=== PATIENT | female | born 1940 | race Caucasian/White ===

== ENCOUNTER 2018-01-25 02:34 | Outpatient (CLI) | payer MEDICARE, SELFPAY ==
[2018-01-25 12:45] LABS: HCT 39.9 % (36.0-46.0); Mean Corp. HGB Concentration 32.6 g/dL (32.0-36.0); Mean Corpuscular Hemoglobin 28.2 pg (27.0-33.0); Mean Corpuscular Volume 86.6 fL (80-95); Mean Platelet Volume 9.1 fL (8.0-11.0); Platelet Count 267 x1000/uL (130-400); RBC 4.61 m/cumm (4.00-5.20); RBC Distribution Width 12.7 % (11.7-14.6); White Blood Cell Count 8.65 k/cumm (4.4-10.8)
[2018-01-25 12:55] LABS: Bilirubin Negative (Negative); Blood Negative (Negative); Clarity Clear; Glucose Negative (Negative); Ketones Negative (Negative); Leukocyte Esterase Small (Negative); Nitrite Negative (Negative); Urobilinogen 0.2 EU/dL (Up TO 0.2)
[2018-01-25 13:10] LABS: Bacteria Few HPF (Negative); C & S Indicated? C&S Done As Ordered; Casts Negative LPF (Negative); Crystals Negative HPF (Negative); Epithelial Cells Few HPF (Negative); Mucus Heavy (Negative); Other Cells Moderate Renal (Negative); RBC Negative (0-2); WBC >50 HPF (0-5)
[2018-01-25 13:26] LABS: Hemoglobin A1C 7.1 % (4.5-6.2)
[2018-01-25 14:20] LABS: COMMENT (LAB VIEW ONLY) 145.85 mg/dL; Microalb ug/mg Crea 8.7 ug/mg Cr
[2018-01-25 14:38] LABS: ALT 14 U/L (12-78); AST 14 U/L (15-37); Albumin 3.4 g/dL (3.4-5.0); Alkaline Phosphatase 96 U/L (46-116); Anion Gap 11.3 mmol/L (3-11); BUN 22 mg/dL (7-18); Bilirubin, Total 1.1 mg/dL (0.2-1.0); CO2 27.7 mmol/L (21.0-32.0); CREATININE 1.01 mg/dL (0.55-1.02); Calcium 9.3 mg/dL (8.5-10.1); Chloride 102 mmol/L (98-107); Estimated GFR 53.43 (mL/min/1.73m2); Glucose 115 mg/dL (70-100); Potassium 4.1 mmol/L (3.5-5.1); Sodium 141 mmol/L (136-145); TSH (W/Ref FT4) 0.66 uIU/mL (0.358-3.74); Total Protein 6.7 g/dL (6.4-8.2)
== END 2018-01-25 02:54 ==
PROVIDERS: PCP Family Medicine; Visit Provider Family Medicine
DX: E11.9 Type 2 diabetes mellitus without complications (principal)
CPT/HCPCS: 36415; 80053; 85027; 81003; 81015; 82043; 82570; 83036; 84443; 87086

== ENCOUNTER 2018-02-24 15:00 | Outpatient (CLI) | payer MEDICARE, SELFPAY ==
--- NOTE | 2018-02-24 12:03 | DI.RAD_ITS ---
SYMPTOMS/DIAGNOSIS: BACK PAIN, DORSALGIA, M54.9 LUMBOSACRAL SPINE: Osteoporosis is demonstrated. The vertebral bodies are intact. A narrowed vacuum disc is noted at L 5 - S 1. There is discogenic sclerosis and hypertrophic spurring. There is otherwise no evidence of gross disc space narrowing save for disc narrowing involving D 9 - 10, D 10 - 11 and D 11 - 12 associated with prominent hypertrophic spurring and endplate sclerosis. The pedicles, spinous and transverse processes as demonstrated appear intact. There are severe facet joint degenerative changes at L 4 - 5 and L 5 - S 1. There is no evidence of spondylolysis or spondylolisthesis. The sacrum and sacroiliac joints are intact. SUMMARY: Degenerative changes involving the lumbosacral spine as described above.
== END 2018-02-24 15:20 ==
PROVIDERS: PCP Family Medicine; Visit Provider Family Medicine
DX: M54.5 Low back pain (principal); M81.0 Age-related osteoporosis without current pathological fracture; M51.37 Other intervertebral disc degeneration, lumbosacral region
CPT/HCPCS: 72110

== ENCOUNTER 2018-03-18 13:38 | Outpatient (CLI) | payer MEDICARE, SELFPAY ==
[2018-03-18 14:30] LABS: Abs Immature Grans 0.03 k/cumm (0.0-0.09); Absolute Basophil Count 0.03 k/cumm (0.0-0.2); Absolute Eosinophil Count 0.35 k/cumm (0.0-0.7); Absolute Lymphocyte Count 1.88 k/cumm (1.2-3.4); Absolute Monocyte Count 0.48 k/cumm (0.11-0.7); Basophils % 0.5; Eosinophils % 5.8; HCT 39.6 % (36.0-46.0); Immature Grans % 0.5; Mean Corp. HGB Concentration 32.8 g/dL (32.0-36.0); Mean Corpuscular Hemoglobin 28.1 pg (27.0-33.0); Mean Corpuscular Volume 85.5 fL (80-95); Mean Platelet Volume 9.4 fL (8.0-11.0); Monocytes % 7.9; Neutrophils % 54.3; Platelet Count 264 x1000/uL (130-400); RBC 4.63 m/cumm (4.00-5.20); RBC Distribution Width 13.5 % (11.7-14.6); White Blood Cell Count 6.07 k/cumm (4.4-10.8)
[2018-03-18 15:00] LABS: ALT 18 U/L (12-78); AST 17 U/L (15-37); Albumin 3.2 g/dL (3.4-5.0); Alkaline Phosphatase 89 U/L (46-116); Anion Gap 11.2 mmol/L (3-11); BUN 17 mg/dL (7-18); Bilirubin, Total 0.5 mg/dL (0.2-1.0); CO2 26.8 mmol/L (21.0-32.0); CREATININE 1.12 mg/dL (0.55-1.02); Chloride 104 mmol/L (98-107); Estimated GFR 47.43 (mL/min/1.73m2); Glucose 187 mg/dL (70-100); Sodium 142 mmol/L (136-145); Total Protein 6.2 g/dL (6.4-8.2)
== END 2018-03-18 13:58 ==
PROVIDERS: PCP Family Medicine; Visit Provider Internal Medicine
DX: Z85.3 Personal history of malignant neoplasm of breast (principal)
CPT/HCPCS: 36415; 80053; 85025

== ENCOUNTER 2018-05-26 02:03 | Outpatient (CLI) | payer MEDICARE, SELFPAY ==
[2018-05-26 09:23] LABS: Hemoglobin A1C 8.6 % (4.5-6.2)
== END 2018-05-26 02:23 ==
PROVIDERS: PCP Family Medicine; Visit Provider Family Medicine
DX: E11.9 Type 2 diabetes mellitus without complications (principal)
CPT/HCPCS: 36415; 83036

== ENCOUNTER 2018-05-31 12:56 | Outpatient (REF) | payer MEDICARE, SELFPAY ==
[2018-05-31 14:14] LABS: Bilirubin Negative (Negative); Blood Negative (Negative); Clarity Clear; Glucose Negative (Negative); Ketones Negative (Negative); Leukocyte Esterase Negative (Negative); Nitrite Negative (Negative); Specific Gravity >= 1.030 (1.005-1.025); Urobilinogen 0.2 EU/dL (Up TO 0.2)
== END 2018-05-31 13:16 ==
LOC: LBN 12:56
PROVIDERS: PCP Family Medicine; Visit Provider Family Medicine
DX: M54.9 Dorsalgia, unspecified (principal); N39.0 Urinary tract infection, site not specified
CPT/HCPCS: 81003

== ENCOUNTER 2018-06-16 00:50 | Outpatient (CLI) | payer MEDICARE, SELFPAY ==
--- NOTE | 2018-06-16 13:47 | DI.DEXA_ITS ---
SYMPTOMS/DIAGNOSIS: OSTEOPENIA DEXA SCAN: DEXA scan was performed according to the usual protocol. The lateral vertebral scanogram shows mild anterior wedging of multiple upper thoracic vertebral bodies. The left hip scanning shows T score -.6 with left femoral neck T score -1.0. Previous examination of 12/15 showed left hip T score 0. Lumbar spine scanning shows T score .6. Previous examination of 12/15 showed lumbar spine T score .7. The findings for left forearm scanning are T score -1.4. CONCLUSION: Findings consistent with osteopenia according to the WHO criteria. Minimal thoracic vertebral body anterior wedging is noted at multiple levels.
== END 2018-06-16 01:10 ==
PROVIDERS: PCP Family Medicine; Visit Provider Family Medicine
DX: M85.88 Other specified disorders of bone density and structure, other site (principal); S22.000A Wedge compression fracture of unspecified thoracic vertebra, initial encounter for closed fracture
CPT/HCPCS: 77080

== ENCOUNTER 2018-06-27 10:12 | Outpatient (CLI) | payer MEDICARE, SELFPAY ==
[2018-06-27 13:06] LABS: ALT 27 U/L (12-78); AST 22 U/L (15-37); Albumin 3.7 g/dL (3.4-5.0); Alkaline Phosphatase 88 U/L (46-116); Anion Gap 8.7 mmol/L (3-11); BUN 22 mg/dL (7-18); Bilirubin, Total 0.7 mg/dL (0.2-1.0); CO2 31.3 mmol/L (21.0-32.0); CREATININE 1.01 mg/dL (0.55-1.02); Calcium 9.6 mg/dL (8.5-10.1); Chloride 102 mmol/L (98-107); Estimated GFR 53.29 (mL/min/1.73m2); Glucose 142 mg/dL (70-100); Potassium 4.8 mmol/L (3.5-5.1); Sodium 142 mmol/L (136-145); Total Protein 7.1 g/dL (6.4-8.2)
== END 2018-06-27 10:32 ==
PROVIDERS: PCP Family Medicine; Visit Provider Family Medicine
DX: I10 Essential (primary) hypertension (principal)
CPT/HCPCS: 36415; 80053

== ENCOUNTER 2018-07-18 03:03 | Outpatient (CLI) | payer MEDICARE, SELFPAY ==
[2018-07-18 10:49] LABS: Abs Immature Grans 0.02 k/cumm (0.0-0.09); Absolute Basophil Count 0.02 k/cumm (0.0-0.2); Absolute Eosinophil Count 0.45 k/cumm (0.0-0.7); Absolute Lymphocyte Count 1.33 k/cumm (1.2-3.4); Absolute Monocyte Count 0.45 k/cumm (0.11-0.7); Basophils % 0.3; Eosinophils % 7.5; HCT 41.3 % (36.0-46.0); HGB 13.4 g/dL (12.0-15.5); Immature Grans % 0.3; Lymphocytes % 22.3; Mean Corp. HGB Concentration 32.4 g/dL (32.0-36.0); Mean Corpuscular Hemoglobin 28.1 pg (27.0-33.0); Mean Corpuscular Volume 86.6 fL (80-95); Mean Platelet Volume 9.1 fL (8.0-11.0); Monocytes % 7.5; Neutrophils % 62.1; Platelet Count 269 x1000/uL (130-400); RBC 4.77 m/cumm (4.00-5.20); RBC Distribution Width 13.7 % (11.7-14.6); White Blood Cell Count 5.97 k/cumm (4.4-10.8)
[2018-07-18 11:40] LABS: AST 24 U/L (15-37); Albumin 3.6 g/dL (3.4-5.0); Alkaline Phosphatase 92 U/L (46-116); Anion Gap 7.8 mmol/L (3-11); BUN 19 mg/dL (7-18); Bilirubin, Total 0.7 mg/dL (0.2-1.0); CO2 32.2 mmol/L (21.0-32.0); CREATININE 1.02 mg/dL (0.55-1.02); Calcium 9.4 mg/dL (8.5-10.1); Chloride 102 mmol/L (98-107); Estimated GFR 52.69 (mL/min/1.73m2); Glucose 198 mg/dL (70-100); Potassium 3.9 mmol/L (3.5-5.1); Sodium 142 mmol/L (136-145); Total Protein 7.1 g/dL (6.4-8.2)
[2018-07-18 11:41] LABS: ALT 23 U/L (12-78)
== END 2018-07-18 03:23 ==
PROVIDERS: PCP Family Medicine; Visit Provider Internal Medicine
DX: Z85.3 Personal history of malignant neoplasm of breast (principal)
CPT/HCPCS: 36415; 80053; 85025

== ENCOUNTER 2018-09-01 13:35 | Outpatient (CLI) | payer MEDICARE, SELFPAY ==
[2018-09-01 14:19] LABS: Hemoglobin A1C 6.6 % (4.5-6.2)
[2018-09-01 15:34] LABS: Cholesterol 180 mg/dL (50-200); HDL Cholesterol 57 mg/dL (40-60); LDL CHOLESTEROL 101 mg/dL (<100); Triglyceride 141 mg/dL (30-150)
== END 2018-09-01 13:55 ==
PROVIDERS: PCP Family Medicine; Visit Provider Family Medicine
DX: E11.9 Type 2 diabetes mellitus without complications (principal)
CPT/HCPCS: 80061; 83721; 83036

== ENCOUNTER 2018-12-15 14:25 | Outpatient (CLI) | payer MEDICARE, SELFPAY ==
[2018-12-15 17:05] LABS: Hemoglobin A1C 6.9 % (4.5-6.2)
== END 2018-12-15 14:45 ==
PROVIDERS: PCP Family Medicine; Visit Provider Family Medicine
DX: E11.9 Type 2 diabetes mellitus without complications (principal)
CPT/HCPCS: 36415; 83036

== ENCOUNTER 2018-12-27 02:09 | Outpatient (CLI) | payer MEDICARE, SELFPAY ==
[2018-12-27 14:10] LABS: Abs Immature Grans 0.03 k/cumm (0.0-0.09); Absolute Basophil Count 0.02 k/cumm (0.0-0.2); Absolute Eosinophil Count 0.56 k/cumm (0.0-0.7); Absolute Lymphocyte Count 2.49 k/cumm (1.2-3.4); Absolute Monocyte Count 0.62 k/cumm (0.11-0.7); Absolute Neutrophil Count 5.15 k/cumm (1.2-6.7); Basophils % 0.2; Eosinophils % 6.3; HCT 41.6 % (36.0-46.0); HGB 13.4 g/dL (12.0-15.5); Immature Grans % 0.3; Lymphocytes % 28.1; Mean Corp. HGB Concentration 32.2 g/dL (32.0-36.0); Mean Corpuscular Hemoglobin 27.1 pg (27.0-33.0); Mean Corpuscular Volume 84.2 fL (80-95); Mean Platelet Volume 9.3 fL (8.0-11.0); Neutrophils % 58.1; Platelet Count 284 x1000/uL (130-400); RBC 4.94 m/cumm (4.00-5.20); RBC Distribution Width 14.3 % (11.7-14.6); White Blood Cell Count 8.87 k/cumm (4.4-10.8)
[2018-12-27 14:25] LABS: ALT 21 U/L (12-78); AST 15 U/L (15-37); Albumin 3.7 g/dL (3.4-5.0); Alkaline Phosphatase 89 U/L (46-116); BUN 22 mg/dL (7-18); Bilirubin, Total 0.6 mg/dL (0.2-1.0); CREATININE 1.15 mg/dL (0.55-1.02); Calcium 9.4 mg/dL (8.5-10.1); Chloride 105 mmol/L (98-107); Estimated GFR 45.88 (mL/min/1.73m2); Glucose 148 mg/dL (70-100); Potassium 3.9 mmol/L (3.5-5.1); Sodium 144 mmol/L (136-145)
== END 2018-12-27 02:29 ==
PROVIDERS: PCP Family Medicine; Visit Provider Internal Medicine
DX: C50.912 Malignant neoplasm of unspecified site of left female breast (principal)
CPT/HCPCS: 36415; 80053; 85025

== ENCOUNTER 2019-03-20 16:18 | Outpatient (CLI) | payer MEDICARE, SELFPAY ==
[2019-03-20 16:38] LABS: Bilirubin Negative (Negative); Blood Negative (Negative); Clarity Clear (Clear); Glucose Negative (Negative); Ketones Trace mg/dL (Negative); Leukocyte Esterase Trace (Negative); Nitrite Negative (Negative); Specific Gravity 1.025 (1.005-1.025); Urobilinogen 0.2 EU/dL (Up TO 0.2); pH 5.5 (5-8)
[2019-03-20 16:50] LABS: Bacteria Moderate HPF (Negative); C & S Indicated? Yes; Casts Negative LPF (Negative); Crystals Negative HPF (Negative); Epithelial Cells Few HPF (Negative); Mucus Trace (Negative); Other Cells Negative (Negative); RBC Negative HPF (0-2)
== END 2019-03-20 16:38 ==
PROVIDERS: PCP Family Medicine; Visit Provider Family Medicine
DX: R35.0 Frequency of micturition (principal)
CPT/HCPCS: 81003; 81015; 87086

== ENCOUNTER 2019-04-21 00:19 | Outpatient (CLI) | payer MEDICARE, SELFPAY ==
[2019-04-21 11:11] LABS: Hemoglobin A1C 6.9 % (4.5-6.2)
== END 2019-04-21 00:39 ==
PROVIDERS: PCP Family Medicine; Visit Provider Family Medicine
DX: E11.9 Type 2 diabetes mellitus without complications (principal)
CPT/HCPCS: 36415; 83036

== ENCOUNTER 2019-05-23 02:50 | Outpatient (CLI) | payer MEDICARE, SELFPAY ==
[2019-05-23 14:11] LABS: Abs Immature Grans 0.02 k/cumm (0.0-0.09); Absolute Basophil Count 0.01 k/cumm (0.0-0.2); Absolute Eosinophil Count 0.25 k/cumm (0.0-0.7); Absolute Lymphocyte Count 2.35 k/cumm (1.2-3.4); Absolute Monocyte Count 0.53 k/cumm (0.11-0.7); Absolute Neutrophil Count 3.35 k/cumm (1.2-6.7); Basophils % 0.2; Eosinophils % 3.8; HCT 39.8 % (36.0-46.0); HGB 12.7 g/dL (12.0-15.5); Immature Grans % 0.3 %; Lymphocytes % 36.1; Mean Corp. HGB Concentration 31.9 g/dL (32.0-36.0); Mean Corpuscular Hemoglobin 26.8 pg (27.0-33.0); Mean Corpuscular Volume 84.1 fL (80-95); Mean Platelet Volume 8.9 fL (8.0-11.0); Monocytes % 8.1; Neutrophils % 51.5; Platelet Count 300 x1000/uL (130-400); RBC 4.73 m/cumm (4.00-5.20); RBC Distribution Width 13.6 % (11.7-14.6); White Blood Cell Count 6.51 k/cumm (4.4-10.8)
[2019-05-23 14:24] LABS: ALT 18 U/L (14-59); AST 21 U/L (15-37); Albumin 3.9 g/dL (3.4-5.0); Alkaline Phosphatase 87 U/L (46-116); Anion Gap 9.3 mmol/L (3-11); BUN 23 mg/dL (7-18); Bilirubin, Total 0.6 mg/dL (0.2-1.0); CO2 29.7 mmol/L (21.0-32.0); CREATININE 0.98 mg/dL (0.55-1.02); Calcium 9.8 mg/dL (8.5-10.1); Chloride 102 mmol/L (98-107); Estimated GFR 55.03 (mL/min/1.73m2); Glucose 156 mg/dL (74-106); Potassium 3.8 mmol/L (3.5-5.1); Sodium 141 mmol/L (136-145)
[2019-05-23 14:29] LABS: Hemoglobin A1C 7.1 % (3.8-5.6)
== END 2019-05-23 03:10 ==
PROVIDERS: PCP Family Medicine; Visit Provider Internal Medicine
DX: E11.9 Type 2 diabetes mellitus without complications (principal); Z85.3 Personal history of malignant neoplasm of breast
CPT/HCPCS: 36415; 80053; 83036; 85025

== ENCOUNTER 2019-06-16 02:05 | Outpatient (CLI) | payer MEDICARE, SELFPAY ==
[2019-06-16 08:40] LABS: Abs Immature Grans 0.01 k/cumm (0.0-0.09); Absolute Eosinophil Count 0.27 k/cumm (0.0-0.7); Absolute Lymphocyte Count 2.12 k/cumm (1.2-3.4); Absolute Monocyte Count 0.51 k/cumm (0.11-0.7); Absolute Neutrophil Count 2.55 k/cumm (1.2-6.7); Eosinophils % 4.9; HCT 40.8 % (36.0-46.0); Immature Grans % 0.2 %; Lymphocytes % 38.8; Mean Corp. HGB Concentration 31.9 g/dL (32.0-36.0); Mean Corpuscular Hemoglobin 26.5 pg (27.0-33.0); Mean Corpuscular Volume 83.3 fL (80-95); Monocytes % 9.3; Neutrophils % 46.8; Platelet Count 271 x1000/uL (130-400); RBC Distribution Width 13.5 % (11.7-14.6); White Blood Cell Count 5.46 k/cumm (4.4-10.8)
[2019-06-16 08:50] LABS: ALT 16 U/L (14-59); AST 23 U/L (15-37); Albumin 3.6 g/dL (3.4-5.0); Alkaline Phosphatase 77 U/L (46-116); Anion Gap 6.2 mmol/L (3-11); BUN 21 mg/dL (7-18); Bilirubin, Total 0.5 mg/dL (0.2-1.0); CO2 31.8 mmol/L (21.0-32.0); CREATININE 0.98 mg/dL (0.55-1.02); Chloride 105 mmol/L (98-107); Estimated GFR 55.03 (mL/min/1.73m2); Glucose 123 mg/dL (74-106); Hemoglobin A1C 7.1 % (3.8-5.6); Potassium 4.9 mmol/L (3.5-5.1); Sodium 143 mmol/L (136-145); Total Protein 6.7 g/dL (6.4-8.2)
[2019-06-16] MEDS: Omnipaque 350 MG/ML 50 ML BTL IJ (09:42)
[2019-06-16] MEDS: Breeza Beverage 473 ML BTL PO ×2 (09:42→09:43)
[2019-06-16] MEDS: Normal Saline - Diluent 50 ML VIAL IV (09:43)
[2019-06-16] MEDS: Omnipaque 350 MG/ML 100 ML BTL IJ (09:44)
--- NOTE | 2019-06-16 09:55 | DI.CT_ITS ---
EXAM: CT CHEST/ABD/PEL W CLINICAL HISTORY: NEW RT RIB PAIN, HX BREAST CA , ? METS COMPARISON: ABD PELVIS WITH CONTRAST from 01/29/2011 FINDINGS: CT examination of the chest, abdomen and pelvis was performed with a bolus infusion of 100 cc of Omni paque 350 and ingestion of dilute barium. The patient reportedly has history of breast carcinoma and complains of right rib pain. No focal rib abnormality is seen. Degenerative changes of the thoraci c spine noted. Lungs predominantly clear with few scattered areas of apparent pulmonary scarring. No mediastinal or hilar adenopathy. No pulmonary embolic disease. Unremarkable appearance of the thoracic aorta and major branches. Tracheobronchial tree appears intact. No axillary or supraclavicular adenopathy. Note is made of gallstones. Liver is unremarkable. Spleen is unremarkable. Hiatal hernia noted and multiple vascular clips are noted in the region of the esophageal hiatus indicating prior surgery. There are multiple bilateral renal cysts and apparent multiple renal cortical scars. Nonobstructing right renal calculus noted. No hydronephrosis or renal mass. Adrenals appear normal. No abdominal or pelvic adenopathy. No significant abdominal wall hernia. No focal bowel pathology. Urinary bladder has a somewhat thickened wall which may be due in part to underdistention but which could indicate cystitis. Appendix not specifically visualized but there is no evidence of appendicit is or diverticulitis. IMPRESSION: No evidence of metastatic disease of the chest, abdomen, or pelvis. If there is a high clinical susp icion of rib pathology, additional evaluation with bone scan may be considered.
--- NOTE | 2019-06-16 10:43 | DI.NM_ITS ---
EXAM: NM BONE SCAN WHOLE BODY GRP CLINICAL HISTORY: NEW RT RIB PAIN, HX BREAST CA , ? METS. COMPARISON: CT CHEST/ABD/PEL W from 06/16/2019 EXAMINATION: Whole body bone scan was performed with intravenous infusion of 25.0 millicuries of isi hnetium 99 labeled methylene diphosphonate. There are areas of minimally increased uptake involving thoracic and lumbar spine consistent with patient's known degenerative changes, as noted on the today 's CT examination. Note is also made of a small focal area of increased uptake in left mid cervical spine laterally, thi s region was not evaluated on today's CT. Additional evaluation with radiographs of the cervical spi ne suggested. No other significant findings. FINDINGS: No specific evidence of metastatic disease as visualized. Focal area of increased uptake in mid late ral cervical spine should be evaluated with radiographs to rule out erosive or destructive lesion. IMPRESSION:
== END 2019-06-16 02:25 ==
PROVIDERS: PCP Family Medicine; Visit Provider Internal Medicine
DX: E11.9 Type 2 diabetes mellitus without complications (principal); R07.81 Pleurodynia; Z85.3 Personal history of malignant neoplasm of breast; N28.1 Cyst of kidney, acquired; N20.0 Calculus of kidney; Z12.89 Encounter for screening for malignant neoplasm of other sites; M47.815 Spondylosis without myelopathy or radiculopathy, thoracolumbar region
CPT/HCPCS: 74177; 78306; 80053; 71260; 83036; 85025; J3490; Q9967

== ENCOUNTER 2019-06-19 10:40 | Outpatient (CLI) | payer MEDICARE, SELFPAY ==
--- NOTE | 2019-06-19 14:09 | DI.RAD_ITS ---
EXAM: XR CERVICAL SPINE COMP 4-5V INDICATION: ABNORMAL NUCLEAR BONE SCAN OF CERVICAL SPINE R93.7. COMPARISON: NM BONE SCAN WHOLE BODY GRP from 06/16/2019 TECHNIQUE: 2D digital imaging was performed. FINDINGS: The vertebral bodies are well maintained. The alignment is normal. There are disc osteophytes throu ghout. There is mild narrowing of the C4-5 and C6-7 disc spaces. There are prominent facet joint de generative changes. There is neural foraminal narrowing on the right at C5-6 and C6-7 and on the lef t at C4-5. No lytic or blastic lesion is seen. IMPRESSION: Degenerative changes causing bilateral neural foraminal narrowing. This could account for the bone s can findings.
== END 2019-06-19 11:00 ==
PROVIDERS: PCP Family Medicine; Visit Provider Family Medicine
DX: R93.7 Abnormal findings on diagnostic imaging of other parts of musculoskeletal system (principal); M25.78 Osteophyte, vertebrae; M50.321 Other cervical disc degeneration at C4-C5 level; M50.323 Other cervical disc degeneration at C6-C7 level
CPT/HCPCS: 72050

== ENCOUNTER 2019-07-19 03:33 | Outpatient (CLI) | payer MEDICARE, SELFPAY ==
[2019-07-19 13:19] LABS: Hemoglobin A1C 7.3 % (3.8-5.6)
== END 2019-07-19 03:53 ==
PROVIDERS: PCP Family Medicine; Visit Provider Family Medicine
DX: E11.9 Type 2 diabetes mellitus without complications (principal)
CPT/HCPCS: 36415; 83036

== ENCOUNTER 2019-08-31 11:40 | Outpatient (REF) | payer MEDICARE, SELFPAY ==
[2019-08-31 11:58] LABS: Bilirubin Negative (Negative); Blood Negative (Negative); Clarity Clear (Clear); Glucose Negative (Negative); Ketones Negative (Negative); Leukocyte Esterase Negative (Negative); Nitrite Negative (Negative); Specific Gravity >= 1.030 (1.005-1.025); Urobilinogen 0.2 EU/dL (Up TO 0.2); pH 5.5 (5-8)
[2019-08-31 13:06] LABS: COMMENT (LAB VIEW ONLY) 139.15 mg/dL; Microalb ug/mg Crea 6.5 ug/mg Cr
== END 2019-08-31 12:00 ==
LOC: LBN 11:40
PROVIDERS: PCP Family Medicine; Visit Provider Family Medicine
DX: R35.0 Frequency of micturition (principal); E11.9 Type 2 diabetes mellitus without complications
CPT/HCPCS: 81003; 82043; 82570

== ENCOUNTER 2019-12-23 18:45 | Emergency (ER) | payer MEDICARE, SELFPAY ==
[2019-12-23] VITALS (20 sets, daily range): BP systolic 132–155; BP diastolic 65–81; PULSE 82–101; RESP 12–25; TEMP 36.8; O2SAT 92–96
--- NOTE | 2019-12-23 18:45 | RT.EKG_ITS ---
APPROVED REPORT Exam: Resting ECG Patient Location: E HR:100 bpm ECG Measurements Heart Rate 100 AXIS IL 175 P 58 QRSd 66 QRS -14 QT 335 T 59 QTc 432 Conclusion sinus rythm, rate 100, qrs is narrow, no st elevation
--- NOTE | 2019-12-23 19:20 | DI.CT_ITS ---
EXAM: CT BRAIN NECK CTA CLINICAL HISTORY: dizziness, no trauma. Wait for Cr please. TECHNIQUE: Imaging Protocol: Axial CT angiography was performed with multi-slice acquisition and mu lti-planar and/or 3D reconstructions. CONTRAST MATERIAL: Intravenous: Omnipaque 350 Contrast volume:structured data in ml COMPARISON: CT CT CHEST/ABD/PEL W from 06/16/2019 FINDINGS: CT Head W/O: Ventricles and Extra axial spaces: Normal in size and morphology for the patient's age. Hemorrhage: None. Cerebral parenchyma: Normal. Midline shift: None. Brainstem/Cerebellum: Normal. Calvarium: Normal. Visualized Paranasal sinuses/Mastoids: Clear. Soft Tissues: Unremarkable. CTA Brain W: Internal Carotid Arteries: Petrous: Normal. Cavernous: Normal. Cerebral: Normal. Middle Cerebral Arteries: Right: No aneurysm, occlusion or significant stenosis. Left: No aneurysm, occlusion or significant stenosis. Anterior Cerebral Arteries: Right: No aneurysm, occlusion or significant stenosis. Left: No aneurysm, occlusion or significant stenosis. Posterior cerebral Arteries: Right: No aneurysm, occlusion or significant stenosis. Left: No aneurysm, occlusion or significant stenosis. Vertebral Arteries: Right: No aneurysm, occlusion or significant stenosis. Left: No aneurysm, occlusion or significant stenosis. Basilar Artery: No aneurysm, occlusion or significant stenosis. CTA Neck W: Common Carotid: Right: No aneurysm, occlusion or significant stenosis. Left: No aneurysm, occlusion or significant stenosis. External Carotid: Right: No aneurysm, occlusion or significant stenosis. Left: No aneurysm, occlusion or significant stenosis. Internal Carotid: Right: No aneurysm, occlusion or significant stenosis. Left: No aneurysm, occlusion or significant stenosis. Vertebral Artery: Right: No aneurysm, occlusion or significant stenosis. Left: No aneurysm, occlusion or significant stenosis. Lung Apices: Normal. Bones: Degenerative disc changes and facet degenerative changes in the cervical spine. Soft Tissues: Normal. IMPRESSION: 1. Normal CTA examination of the [place] of [place]. 2. Unremarkable noncontrast CT Head. 3. Normal CTA examination of the neck. RADIATION DOSE DELIVERED: 1,215.62mGy.cm Total DLP DATA REPOSITORY: All CT scans at this facility are submitted to the National Radiology Data Registry (NRDR) Dose Index Registry (DIR) with the [employer] (ACR). RADIATION OPTIMIZATION: All CT scans at this facility use at least one of these dose optimization te chniques: automated exposure control; mA and/or kV adjustment per patient size (includes targeted exa ms where dose is matched to clinical indication); or iterative reconstruction.
--- NOTE | 2019-12-23 19:23 | ED.GENADUL_ITS ---
Discharge Plan Disposition Patient Disposition: HOME Condition: Good Discharge Details Chief Complaint: Dizzy/Sync Clinical Impression: Lightheadedness, Dehydration Primary Care Provider: Patricia Palacio ED Provider: Robin Jordan Olmitz Meds and New Rx's Prescriptions: Continued oxybutynin chloride [Ditropan XL] 10 mg tablet extended release 24hr 10 mg PO DAILY Qty: 90 RF: 4 fluticasone propionate 50 mcg/actuation spray,suspension 2 spray IZZY DAILY Qty: 47.4 RF: 5 PreserVision AREDS-2 [id number] sh-rvil-mv-mg capsule 1 tab PO DAILY RF: 0 (DME) blood sugar diagnostic [Blood Glucose Test] Strip 1 ea Miscellaneous DAILY Qty: 100 RF: 4 (DME) lancets 28 gauge misc 1 - 3 ea Miscellaneous DAILY Qty: 100 RF: 5 venlafaxine 75 mg capsule,extended release 24hr 75 mg PO QPM Qty: 90 RF: 7 glipizide 5 mg tablet extended release 24hr 5 mg PO DAILY Qty: 90 RF: 4 hydrochlorothiazide 12.5 mg tablet 12.5 mg PO DAILY Qty: 90 RF: 4 metformin 1,000 mg tablet 1,000 mg PO BID Qty: 180 RF: 12 omeprazole 20 mg capsule,delayed release(DR/EC) 20 mg PO DAILY Qty: 90 RF: 12 aspirin 81 MG tablet,delayed release (DR/EC) 1 tab PO DAILY RF: 0 calcium carbonate-vitamin D3 1 EACH tablet 1 tab PO DAILY RF: 0 clobetasol [Temovate] 30 GM cream 1 - 2 gm Topical DAILY PRNQty: 1 RF: 12 Probiotic 10 billion cell capsule 1 cell PO DAILY PRNRF: 0 trazodone 100 mg tablet 100 mg PO HS Qty: 90 RF: 12 Discharge Instructions Instructions: Dehydration (ED) Additional Instructions: Your EKG, chest x-ray, CT scans and labs all look good. Some evidence of dehydration, so please push fluids for the next few days. Call PCP for follow up. Return to ED for syncope, chest pain, shortness of breath, neurological changes, other concerns. Referrals: Patricia Palacio MD, [place] [Primary Care Provider] - Medical Decision Making <Jerry Venegas MD - Last Filed: 12/23/19 19:34> 79-year-old female presents from outpatient setting. She states that yesterday evening while getting ready for bed she felt lightheaded and unstable on her feet. She went to bed and slept normally. She felt better this morning and went shopping with a friend. While at the checkout line she felt lightheaded and fell onto her bottom without loss of consciousness. She arrives afebrile with blood pressure 134/68, pulse is 98. She does have approximately 10 point rise in pulse going from flat to sitting. Her neurologic exam is within normal limits. Would note her history does include venous sinus thrombosis for which she was anticoagulated for approximately 10 years in the 90s. Today's differential diagnosis includes mild vertigo, dehydration, electrolyte abnormality, and lost exclude underlying infection such as UTI. IV access established, patient given a fluid bolus, referred for screening laboratories, urinalysis, and CT scan with and without IV contrast enhancement. As it is change of shift, patient will be signed out to the oncoming physician Dr. Jordan. Please see his note regarding final impression and disposition. <Robin Jordan MD - Last Filed: 12/24/19 00:04> Patient had presented with complaint of lightheadedness/dizziness. Initially seen and evaluated by Dr. Venegas. Please see his note for presentation and initial evaluation. Signed out to me pending laboratory studies and imaging results. Has been receiving IV fluids. Laboratory studies are unremarkable. White count, hematocrit and platelets are normal. Electrolytes are fine. BUN and creatinine a little above her baseline consistent with impression of dehydration. Liver function is normal. Troponin is negative. Urine is negative. CT head as well as CTA head and neck read by radiology as normal. Chest x-ray is also unremarkable. Patient is ambulated in the department and feels much better. Formal orthostatics obtained and negative. Patient continues to deny chest pain, shortness of breath, neurologic changes. Denies this feeling like previous vertigo. Seems to have responded to fluids and may very well be related to some dehydration. She would like to be discharged which I think is reasonable. She is to push fluids over the weekend and contact primary care on Wednesday for reevaluation. Return to ED if any changes or concerns. Lab Data Lab results reviewed: Yes I reviewed the patient's lab results. HPI <Jerry Venegas MD - Last Filed: 12/23/19 19:34> General Mode of arrival: ambulatory . Date/Time Provider Initiated Documentation: 12/23/19 18:47 . Limitations to Documentation: no limitations . Information obtained by: patient . History of Present Illness 79 year old F presents to the emergency department with the chief complaint of Lightheaded and dizziness, described as moderate, Quality is described as dull, and is localized to the head. Patient reports no radiation. and it has been intermittent and now resolved. No relieving factors improve symptom(s), No exacerbating factors reported . Patient notes weakness; denies fever/chills, headaches, loss of appetite, nausea/vomiting and syncope. Patient did receive the following treatments prior to arrival, none Related Data Home Medications Medication Instructions Recorded Confirmed aspirin 1 tab PO DAILY tab-cap 08/02/12 12/23/19 calcium carbonate-vitamin D3 1 tab PO DAILY 04/15/17 12/23/19 clobetasol [Temovate] 1 - 2 gm TOPICAL DAILY PRN #1 tube 10/18/17 12/23/19 Lactobacillus acidophilus 10 1 cell PO DAILY PRN cap 12/22/18 12/23/19 billion cell capsule blood sugar diagnostic #100 strip 12/22/18 07/27/19 lancets 28 gauge #100 each 12/22/18 07/27/19 vit C 250 mg-E 200 unit-zinc 40 1 tab PO DAILY cap 12/22/18 12/23/19 mg-copper 1 kg-nofamo-smnshd capsule trazodone 100 mg tablet 100 mg PO HS #90 tab-cap 07/13/19 12/23/19 glipizide 5 mg tablet, extended 5 mg PO DAILY #90 tab 07/27/19 12/23/19 release 24 hr hydrochlorothiazide 12.5 mg tablet 12.5 mg PO DAILY #90 tab-cap 07/27/19 12/23/19 metformin 1,000 mg tablet 1,000 mg PO BID #180 tab-cap 07/27/19 12/23/19 omeprazole 20 mg capsule,delayed 20 mg PO DAILY #90 tab-cap 07/27/19 12/23/19 release venlafaxine 75 mg capsule,extended 75 mg PO QPM #90 cap 07/27/19 12/23/19 release 24 hr fluticasone propionate 50 2 spray IZZY DAILY #47.4 gm 09/12/19 12/23/19 mcg/actuation nasal spray,suspension oxybutynin chloride 10 mg 10 mg PO DAILY #90 tab 09/12/19 12/23/19 tablet,extended release 24 hr Previous Rx's Medication Instructions Recorded blood sugar diagnostic #100 strip 12/22/18 lancets 28 gauge #100 each 12/22/18 trazodone 100 mg tablet 100 mg PO HS #90 tab-cap 07/13/19 glipizide 5 mg tablet, extended 5 mg PO DAILY #90 tab 07/27/19 release 24 hr hydrochlorothiazide 12.5 mg tablet 12.5 mg PO DAILY #90 tab-cap 07/27/19 metformin 1,000 mg tablet 1,000 mg PO BID #180 tab-cap 07/27/19 omeprazole 20 mg capsule,delayed 20 mg PO DAILY #90 tab-cap 07/27/19 release venlafaxine 75 mg capsule,extended 75 mg PO QPM #90 cap 07/27/19 release 24 hr fluticasone propionate 50 2 spray IZZY DAILY #47.4 gm 09/12/19 mcg/actuation nasal spray,suspension oxybutynin chloride 10 mg 10 mg PO DAILY #90 tab 09/12/19 tablet,extended release 24 hr Allergies Allergy/AdvReac Type Severity Reaction Status Date / Time Sulfa (Sulfonamide Allergy Intermediate Rash Unverified 12/23/19 19:03 Antibiotics) adhesive AdvReac causes Unverified 12/23/19 19:03 skin tears amoxicillin AdvReac Vomiting Unverified 12/23/19 19:03 General Stated Complaint: Dizzy/Sync JON: 2 Review of Systems <Jerry Venegas MD - Last Filed: 12/23/19 19:34> Narrative: 6 systems reviewed and otherwise negative PFSH <Jerry Venegas MD - Last Filed: 12/23/19 19:34> Medical History Abnormal mammography (Resolved) 07/02/08 Mammogram 06/15/08-Rt breast Catergory 4. Steretactic biopsy performed 06/28/08. Recurrent;12/18/09-left breast U/S-benign; simple cyst Acute gastric ulcer with obstruction (Resolved) Acute gastric ulcer with obstruction (Inactive) Anemia (Resolved) Anemia (Inactive) Arthritis (Chronic) left foot DJD Asthma (Chronic) Back pain (Inactive) Bilateral impacted cerumen (Inactive 05/16/15) Chronic otitis externa (Inactive 12/14/13) Depressive disorder (Resolved) Diabetes mellitus (Chronic 09/05/12) Eczema (Chronic 09/21/13) Essential hypertension (Chronic 03/17/13) Fatigue (Inactive 01/14/16) Frequent UTI (Chronic 09/02/17) GERD (gastroesophageal reflux disease) (Chronic) EGD; globus two-three times at stretching of the esophagus PARAESOPHAGEAL (QUESTION GASTRIC VOLVULUS) Gout (Resolved) Hematoma (Resolved) rectus Hematoma (Inactive) Hiatal hernia (Chronic) History of esophageal dilatation (Resolved) History of esophageal dilatation (Inactive) Hyperlipidemia (Chronic) Hypoxia (Resolved) s/p thoracentesis for left hydropneumothorax with resolution of hypoxia. Hypoxia (Inactive) Impacted cerumen (Inactive 12/14/13) Impacted cerumen of both ears (Resolved) 05/16/15 Impacted cerumen of both ears (Acute) Impacted cerumen of left ear (Resolved) 05/28/16 Impacted cerumen of left ear (Inactive 05/28/16) Impaired renal function disorder (Chronic 01/01/14) 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; 07/13 [place] [facility] [place];PER NEEDLE BX 07/02/16 Osteopenia (Chronic) Otomycosis (Inactive 05/11/13) Polycystic ovaries (Resolved) Polycystic ovaries (Inactive) Renal failure syndrome (Resolved) Seborrheic keratoses (Chronic 01/14/17) Thrombosis of cavernous venous sinus (Resolved) 1998 Thrombosis of cavernous venous sinus (Inactive) Unintended weight loss (Inactive 01/14/17) Urinary incontinence (Chronic 09/27/17) Vaginal atrophy (Chronic) 0 ESTROGEN DUE TO BREAST CANCER Weight loss (Resolved 09/27/17) Weight loss, non-intentional (Resolved) 01/14/17 Surgical History (Updated 04/27/19 @ 08:50 by Patricia Palacio MD, [place]) Biopsy of breast Stereotactic biopsy of Rt breast [place]28/08 [place] [facility] [place] [facility] [place] 07/24 15 NEEDLE BX ON 3 SITES Breast, Lumpectomy (~1990) 1990;[facility]; RIGHT BREAST, 08/10/16;LEFT BREAST LOBULAR CANCER DILATION [id number] ESOPHAGEAL (SEVERAL TIMES/TENSION RELATED) Extraction of cataract 07/26/14; LEFT; DR. POWERS 06/2014; RIGHT; DR. POWERS Fracture, Open Treatment (~1992) anupama; fractured leg (tib/fib- left leg) H/O surgical procedure (Resolved) 05/10/03 TDT incontinence surgery. toenail removal-2000 History of open reduction and internal fixation (ORIF) procedure (Resolved) 05/10/92 anupama; fractured leg History of open reduction and internal fixation (ORIF) procedure (Inactive) History of repair of hiatal hernia (Resolved) History of repair of hiatal hernia (Inactive) History of thoracentesis (Resolved) left hydropneumothorax w/resolution of hypoxia History of thoracentesis (Inactive) Hysterectomy Hx of PCOS Praful Fundoplication 2010 laproscopic [place] 2016[place] [place]-[facility] REPAIR OF HH S/P breast biopsy (Resolved) 05/10/08 sterostactic biopsy of right breast; [facility] S/P breast lumpectomy (Resolved) 05/10/90 [facility] S/P cataract extraction (Resolved) 07/26/14; Dr. Powers; left S/P laparoscopic hysterectomy (Resolved) HX of PCOS Sinus infection (~1998) 5 veins blocked in the base of brain related to a serious sinus infection Status post breast lumpectomy (Inactive) Status post cataract extraction (Inactive) Status post laparoscopic hysterectomy (Inactive) Status post Praful fundoplication (Resolved) Status post Praful fundoplication (Inactive) TDT INCONTINECE SURGERY (~2003) Thoracentesis left hydropneumothorax with resolution of hypoxia TOENAIL REMOVAL (~2000) Family History Mother , age 63 Essential hypertension Depression Breast cancer Father , age 77 COPD (chronic obstructive pulmonary disease) Diabetes Brother Diabetes Essential hypertension Maternal Grandfather TB (tuberculosis) Lung disease Heart disease Paternal Grandfather , age 76 Essential hypertension Maternal Grandmother , age 48 Diabetes Essential hypertension Heart disease Paternal Grandmother , CHILD at age 38. Alcohol abuse Heart disease Hypertension MATERNAL FAMILY HX Depression Heart disease PATERNAL FAMILY HX Essential hypertension Social History Smoking/Tobacco Use Status: Never Alcohol Intake: never Drug use: Never Substance use type: does not use Caregiver/Support person: No Household members: none Communication Needs: Hard of Hearing Do you need help understanding health information?: Rarely Pets and animals: No Sexually active: No Do you think of yourself as: straight/heterosexual Current gender identity: female What is your relationship status?: How often do you talk on the phone with friends or family?: three or more times per week How often do you get together with friends or relatives?: twice per week How often do you attend taoism or jainism services?: 4 or more times per year Do you belong to any clubs or organized social groups?: yes Panel score (0-1 are the most socially isolated patients): 3 What type of physical activity do you participate in: other Duration: 45-60 minutes/day Frequency: 1-2 times per week Lizett/Hinduism: Yarsani Special lizett needs: No Seatbelt use: always Drive intox or ride w/intox full service vending driver: No Do you feel safe at home: Yes Do you feel safe in your relationship?: Yes Exam <Jerry Venegas MD - Last Filed: 12/23/19 19:34> Narrative Exam Narrative: GEN: awake, alert, oriented 3. Pleasant, well groomed, interactive. HEAD: Normocephalic, atraumatic ENT: Mucous membranes moist, oropharynx unremarkable, hearing aids in place, abl e to visualize tympanic membranes and clear bilaterally, external ear exam unremarkable EYES: PERRL, EOMI NECK: Full ROM, no JJ, no menigismus CHEST/RESP: Nontender, clear to auscultation bilateral, no wheeze/rhonchi/rales CARDIOVASCULAR: RRR, no murmur, rub rios. 2+ Rad pulse bilateral ABDOMEN: Soft, nontender, no mass. +Bowel sounds EXT: Full ROM, no edema, no rash Neuro: Grossly normal neurologic exam, conversant, interactive. Cranial nerves II through XII intact, uddeyd-vr-gsos intact, no nystagmus appreciated. Psych: Speech fluent, thoughts congruent, affect normal Course <Jerry Venegas MD - Last Filed: 12/23/19 19:34> Vital Signs Vital signs: Vital Signs Temperature 36.8 C 12/23/19 18:57 Pulse 98 H 12/23/19 18:57 Respiratory Rate 15 12/23/19 18:57 Blood Pressure 134/68 12/23/19 18:57 Pulse Oximetry 95 12/23/19 18:57 Temperature 36.8 C 12/23/19 18:57 Temperature Source Skin 12/23/19 18:57 Pulse 98 H 12/23/19 18:57 Respiratory Rate 15 12/23/19 18:57 Blood Pressure 134/68 12/23/19 18:57 Blood Pressure Position Sitting 12/23/19 18:57 Pulse Oximetry 95 12/23/19 18:57 Oxygen Delivery Method Room Air 12/23/19 18:57 Oxygen Flow Rate 0 12/23/19 18:57 Sign Out <Jerry Venegas MD - Last Filed: 12/23/19 19:34> Sign Out Data: Sign Out Comment: Followup labs,imaging, re-eval Last updated by Jerry Venegas MD at 12/23/19 19:44
[2019-12-23] MEDS: Normal Saline 1,000 ML 1000 ML IV (19:25)
--- NOTE | 2019-12-23 19:30 | DI.RAD_ITS ---
EXAM: XR CHEST 2V PA LATERAL CLINICAL HISTORY: dizzy, near syncope TECHNIQUE: 2D digital imaging was performed. COMPARISON: CR CHEST 2 VIEWS PA,LAT from 11/04/2015 FINDINGS: MEDIASTINUM: Normal. HEART: Normal. Tortuous aorta. PULMONARY VASCULATURE: Normal. LUNGS: Clear. PLEURAL SPACE: No pleural effusion or pneumothorax. BONE:Degenerative changes in the spine. OTHER FINDINGS:Elevated right diaphragm, stable. IMPRESSION: No acute pulmonary findings. DATA REPOSITORY: RADIATION DOSE DELIVERED:
[2019-12-23 19:32] LABS: Abs Immature Grans 0.05 10^3/uL (0.0-0.06); Absolute Eosinophil Count 0.03 10^3/uL (0.0-0.7); Absolute Lymphocyte Count 2.28 10^3/uL (1.2-3.4); Absolute Monocyte Count 0.45 10^3/uL (0.1-0.8); Absolute Neutrophil Count 5.65 10^3/uL (1.2-6.7); Eosinophils % 0.4; HCT 38.8 % (36.0-46.0); HGB 12.2 g/dL (11.2-15.7); Immature Grans % 0.6; MCHC 31.4 % (32.0-36.0); MCV 82.7 fL (80-95); MPV 9.2 fL (8.0-11.0); Monocytes % 5.3; Neutrophils % 66.7; Nucleated RBC 0 %; Platelet Count 249 10^3/uL (130-400); RBC 4.69 10^6/uL (3.93-5.22); RDW 14.7 % (11.7-14.6); RDW-SD 44.7 fL; WBC 8.46 10^3/uL (4.4-10.8)
[2019-12-23 20:02] LABS: ALT 24 U/L (14-59); AST 22 U/L (15-37); Albumin 3.7 g/dL (3.4-5.0); Alkaline Phosphatase 85 U/L (46-116); Anion Gap 10.8 mmol/L (3-11); BUN 27 mg/dL (7-18); Bilirubin, Total 0.4 mg/dL (0.2-1.0); CO2 27.2 mmol/L (21.0-32.0); CREATININE 1.25 mg/dL (0.55-1.02); Calcium 9.2 mg/dL (8.5-10.1); Chloride 101 mmol/L (98-107); Estimated GFR 41.56 (mL/min/1.73m2); Glucose 188 mg/dL (74-106); Magnesium 1.8 mg/dL (1.8-2.4); Potassium 4.3 mmol/L (3.5-5.1); Sodium 139 mmol/L (136-145); Total Protein 6.9 g/dL (6.4-8.2)
[2019-12-23 20:06] LABS: Troponin I < 0.05 ng/mL (<0.06)
[2019-12-23 20:50] LABS: Bilirubin Negative (Negative); Blood Negative (Negative); Clarity Clear (Clear); Glucose Negative (Negative); Ketones Negative (Negative); Leukocyte Esterase Trace (Negative); Nitrite Negative (Negative); Specific Gravity 1.015 (1.005-1.025); Urobilinogen 0.2 EU/dL (Up TO 0.2); pH 5.5 (5-8)
[2019-12-23 20:51] LABS: Bacteria Negative HPF (Negative); C & S Indicated? Yes; Casts Negative LPF (Negative); Crystals Negative HPF (Negative); Epithelial Cells Negative HPF (Negative); Mucus Negative (Negative); Other Cells Rare Renal (Negative); RBC Negative HPF (0-2); WBC 0-2 HPF (0-5)
--- NOTE | 2019-12-23 21:23 | DI.VRAD_ITS ---
PROCEDURE INFORMATION: Exam: CT Angiography Head With Contrast Exam date and time: 12/23/2019 8:42 PM Age: 79 years old Clinical indication: Dizziness and giddiness; Patient HX: Dizziness, no trauma TECHNIQUE: Imaging protocol: Computed tomography angiography of the head with intravenous contrast. 3D rendering: MIP and/or 3D reconstructed images were created by the technologist. COMPARISON: CT HEAD WITHOUT CONTRAST 05/06/2014 5:52 PM FINDINGS: ANTERIOR CIRCULATION: Right internal carotid artery: Unremarkable. Intracranial segment is patent with no significant stenosis. No aneurysm. Right middle cerebral artery: Unremarkable. No occlusion or significant stenosis. No aneurysm. Right anterior cerebral artery: Unremarkable. No occlusion or significant stenosis. No aneurysm. Left internal carotid artery: Unremarkable. Intracranial segment is patent with no significant stenosis. No aneurysm. Left middle cerebral artery: Unremarkable. No occlusion or significant stenosis. No aneurysm. Left anterior cerebral artery: Unremarkable. No occlusion or significant stenosis. No aneurysm. POSTERIOR CIRCULATION: Right vertebral artery: Unremarkable. No occlusion or significant stenosis. No aneurysm. Left vertebral artery: Unremarkable. No occlusion or significant stenosis. No aneurysm. Basilar artery: Unremarkable. No occlusion or significant stenosis. No aneurysm. Right posterior cerebral artery: Unremarkable. No occlusion or significant stenosis. No aneurysm. Left posterior cerebral artery: Unremarkable. No occlusion or significant stenosis. No aneurysm. IMPRESSION: No large vessel stenosis or occlusion. PROCEDURE INFORMATION: Exam: CT Head Without Contrast Exam date and time: 12/23/2019 8:42 PM Clinical indication: Dizziness and giddiness; Patient HX: Dizziness, no trauma TECHNIQUE: Imaging protocol: Computed tomography of the head without contrast. COMPARISON: No relevant prior studies available. FINDINGS: Brain: There is no acute intracranial hemorrhage, mass effect or midline shift. No large acute territorial infarct identified. There are patchy regions of hypodensity in the periventricular and subcortical white matter, likely on the basis of chronic microvascular ischemic disease. A remote left thalamic infarct is noted. Ventricles: The ventricles and sulci are prominent in size, which is likely related to global cerebral volume loss. Bones/joints: Unremarkable. No acute fracture. Sinuses: There is mucosal thickening in the left maxillary sinus. Mastoid air cells: Visualized mastoid air cells are well aerated. Soft tissues: Unremarkable. IMPRESSION: No acute intracranial hemorrhage, mass effect or midline shift. PROCEDURE INFORMATION: Exam: CT Angiography Neck With Contrast Exam date and time: 12/23/2019 8:42 PM Age: 79 years old Clinical indication: Dizziness and giddiness; Patient HX: Dizziness, no trauma TECHNIQUE: Imaging protocol: Computed tomography angiography of the neck with intravenous contrast. 3D rendering: MIP and/or 3D reconstructed images were created by the technologist. COMPARISON: CT HEAD WITHOUT CONTRAST 05/06/2014 5:52 PM FINDINGS: Right common carotid artery: No stenosis. No dissection or occlusion. Right internal carotid artery: No stenosis of the extracranial segment. No dissection or occlusion. Right external carotid artery: No occlusion or stenosis of the origin. Right vertebral artery: No stenosis. No dissection or occlusion. Left common carotid artery: No stenosis. No dissection or occlusion. Left internal carotid artery: No stenosis of the extracranial segment. No dissection or occlusion. Left external carotid artery: No occlusion or stenosis of the origin. Left vertebral artery: No stenosis. No dissection or occlusion. Bones/joints: No acute fracture. There are multilevel degenerative changes most prominent at C4-C5 and C6-C7. Soft tissues: Normal. No significant soft tissue swelling. IMPRESSION: No stenosis or occlusion. REFERENCES: NASCET CRITERIA. The degree of internal carotid artery stenosis is based on NASCET criteria. Normal is no stenosis. Mild is less than 50% stenosis. Moderate is 50-69% stenosis. Severe is 70% to 99% stenosis. Total occlusion is no detectable patent lumen. Dictated and Authenticated by: Evelyn Pandya MD. Ordering:ERIK Edwards MD
--- NOTE | 2019-12-23 21:36 | DI.VRAD_ITS ---
PROCEDURE INFORMATION: Exam: XR Chest, 2 Views Exam date and time: 12/23/2019 8:55 PM Age: 79 years old Clinical indication: Patient HX: Dizziness, near syncope TECHNIQUE: Imaging protocol: XR of the chest Views: 2 views. COMPARISON: CT CHEST/ABD/PEL W 06/16/2019 9:47 AM FINDINGS: Lungs: Unremarkable. No consolidation. Pleural space: Unremarkable. No pleural effusion. No pneumothorax. Heart/Mediastinum: Unremarkable. No cardiomegaly. Bones/joints: No evidence of displaced fracture. Degenerative changes noted in the right acromioclavicular joint. IMPRESSION: No acute findings. Dictated and Authenticated by: Evelyn Pandya MD. Ordering:ERIK Edwards MD
--- NOTE | 2019-12-23 21:47 | NUR.NOTE ---
Nursing Note: Patient ambulatory to restroom. Upon sitting up in bed, heart rate noted to increase to 110.
== END 2019-12-23 22:15 | disposition home or self-care (01) ==
PROVIDERS: Emergency Medicine; Emergency Provider Emergency Medicine; PCP Family Medicine
DX: E86.0 Dehydration (principal); R42 Dizziness and giddiness; W18.30XA Fall on same level, unspecified, initial encounter; E11.9 Type 2 diabetes mellitus without complications; Z79.84 Long term (current) use of oral hypoglycemic drugs; I10 Essential (primary) hypertension; N25.9 Disorder resulting from impaired renal tubular function, unspecified
CPT/HCPCS: 36415; 70496; 70498; 80053; 93005; 96360; 96361; 99285; 71046; 81003; 81015; 83735; 84484; 85025; 87086; 93010

== ENCOUNTER 2019-12-26 09:43 | Outpatient (CLI) | payer MEDICARE, SELFPAY ==
[2019-12-26 12:39] LABS: Bilirubin Negative (Negative); Blood Negative (Negative); Clarity Sl Cloudy (Clear); Glucose Negative (Negative); Ketones Negative (Negative); Leukocyte Esterase Moderate (Negative); Nitrite Negative (Negative); Specific Gravity 1.025 (1.005-1.025); Urobilinogen 0.2 EU/dL (Up TO 0.2); pH 5.5 (5-8)
[2019-12-26 12:54] LABS: Bacteria Few HPF (Negative); C & S Indicated? Yes; Casts Negative LPF (Negative); Crystals Negative HPF (Negative); Epithelial Cells Few HPF (Negative); Mucus Trace (Negative); Other Cells Few Renal (Negative); RBC Negative HPF (0-2); WBC 20-50 HPF (0-5)
[2019-12-26 13:10] LABS: ALT 22 U/L (14-59); AST 20 U/L (15-37); Albumin 3.8 g/dL (3.4-5.0); Alkaline Phosphatase 74 U/L (46-116); Anion Gap 11.2 mmol/L (3-11); BUN 23 mg/dL (7-18); Bilirubin, Total 0.5 mg/dL (0.2-1.0); CO2 27.8 mmol/L (21.0-32.0); CREATININE 1.03 mg/dL (0.55-1.02); Calcium 9.3 mg/dL (8.5-10.1); Chloride 104 mmol/L (98-107); Estimated GFR 51.96 (mL/min/1.73m2); Glucose 144 mg/dL (74-106); Potassium 4.1 mmol/L (3.5-5.1); Sodium 143 mmol/L (136-145); TSH (W/Ref FT4) 0.53 uIU/mL (0.36-3.74); Total Protein 6.6 g/dL (6.4-8.2); Vitamin B12 317 pg/mL (193-986)
== END 2019-12-26 10:03 ==
PROVIDERS: PCP Family Medicine; Visit Provider Family Medicine
DX: E11.9 Type 2 diabetes mellitus without complications (principal); E86.0 Dehydration; R42 Dizziness and giddiness; R32 Unspecified urinary incontinence
CPT/HCPCS: 36415; 80053; 81003; 81015; 82607; 83036; 84443; 87086

== ENCOUNTER 2020-01-02 00:01 | Outpatient (CLI) | payer MEDICARE, SELFPAY ==
--- NOTE | 2020-01-02 06:30 | DI.NM_ITS ---
APPROVED REPORT Exam: Pharmacologic Patient Location: Out-Patient Room/Bed: Stress Nurse: Chelle Bridges RN BMI: 24.40 Baseline Rhythm: Sinus Rhythm Indications: Syncope, Dyspnea, SOB, Fatigue Medical History Medical History: Depression, Fatigue, HTN, Hyperlipidemia, Weakness, Blood clots Cardiac Medications: Aspirin, Hydrochlorothiazide/ Microzide, Oretic Allergies: sulfa, amoxicillin, tape Cardiac Risk Factors: HTN, Hyperlipidemia, FHX of CAD Pretest Chest Pain Characteristics: No chest pain Exercise History: Indeterminate Physical Disabilities: Legs, Knees, Back Lung Sounds: Clear to auscultation Heart Sounds: Regular Stress Test Details Test: Pharmacologic stress testing performed using 0.4 mg of regadenoson per 5 mL given IV over 10 s econds. Nuclear Acquisition: Rest Tc-99m/Stress Tc-99m 1 day Rest Isotope: Tc-99m Sestamibi. Dose: 10.4 Date: 01/02/2020 Injection Time: 0905 Stress Isotope: Tc-99m Sestamibi. Dose: 32.1 Date: 01/02/2020 Injection Time: 1050 HR Resting HR Supine: 79 bpm Max Heart Rate (APMHR): 143 bpm Target HR (85% APMHR): 121 bpm Max HR Achieved: 108 bpm % of APMHR: 75 Recovery HR: 98 bpm HR response to stress: Normal HR response to stress BP Resting BP Supine: 144/76 mmHg Max BP: 144/78 mmHg Recovery BP: 140/72 mmHg BP response to stress: Normal blood pressure response to stress. ECG Resting ECG: Sinus Rhythm Stress ECG: Sinus Tachycardia Maximum ST Deviation: 0.7 mm Arrhythmia: None Recovery ECG: Sinus Rhythm Recovery Arrhythmia: None Clinical Reason for Termination: vs returned to baseline Exercise duration: 06 min01 sec Exercise capacity: 1 METs Stress ECG Conclusion 1. There is a pharmacological stress test. 2. The patient no symptoms suggestive of ischemia 3. The EKG portion of this exam is nondiagnostic. Critical Notification Critical Value: No MPI Conclusion The ejection fraction was 82% with stress. There were no wall motion abnormalities. There is no evidence of ischemia on the imaging portion of the exam. This represents a normal SPECT stress test Radiologist Interpretation Radiologist agrees with [employer] Operator's Interpretation. Radiologist Interpretation by: Jerry Rodríguez MD Interpretation Date/Time: 01/02/2020 14:47:49
[2020-01-02] MEDS: Regadenoson 0.4 MG/5 ML SYR IVP (10:45)
== END 2020-01-02 00:21 ==
PROVIDERS: PCP Family Medicine; Visit Provider Family Medicine
DX: R06.02 Shortness of breath (principal); R06.00 Dyspnea, unspecified; R53.83 Other fatigue; I10 Essential (primary) hypertension; E78.5 Hyperlipidemia, unspecified; Z82.49 Family history of ischemic heart disease and other diseases of the circulatory system
CPT/HCPCS: 78452; 93016; 93018; 93017; J2785

== ENCOUNTER 2020-02-01 04:41 | Outpatient (CLI) | payer MEDICARE, SELFPAY | END 2020-02-01 05:01 | PROVIDERS: PCP Family Medicine; Visit Provider Family Medicine | DX: E11.9 Type 2 diabetes mellitus without complications (principal) | CPT/HCPCS: 36415; 83036 ==

== ENCOUNTER 2020-03-29 22:33 | Outpatient (REF) | payer MEDICARE, SELFPAY ==
[2020-03-29 21:52] LABS: Bilirubin Negative (Negative); Blood Large (Negative); Clarity Sl Cloudy (Clear); Glucose Negative (Negative); Ketones Trace mg/dL (Negative); Leukocyte Esterase Moderate (Negative); Nitrite Negative (Negative); Specific Gravity 1.025 (1.005-1.025); Urobilinogen 0.2 EU/dL (Up TO 0.2); pH 5.5 (5-8)
[2020-03-29 21:56] LABS: Bacteria Few HPF (Negative); C & S Indicated? Yes; Casts Negative LPF (Negative); Crystals Negative HPF (Negative); Epithelial Cells Few HPF (Negative); Mucus Negative (Negative); RBC 20-50 HPF (0-2); WBC 20-50 HPF (0-5)
== END 2020-03-29 22:53 ==
LOC: LBN 22:33
PROVIDERS: PCP Family Medicine; Visit Provider Physician Assistant
DX: N39.0 Urinary tract infection, site not specified (principal)
CPT/HCPCS: 81003; 81015; 87086

== ENCOUNTER 2020-04-11 19:32 | Outpatient (REF) | payer MEDICARE, SELFPAY | END 2020-04-11 19:52 | LOC: LBN 19:32 | PROVIDERS: PCP Family Medicine; Visit Provider Nurse Practitioner Family | DX: N39.0 Urinary tract infection, site not specified (principal) | CPT/HCPCS: 87086 ==

== ENCOUNTER 2020-05-29 19:18 | Outpatient (REF) | payer MEDICARE, SELFPAY ==
[2020-05-30 17:40] LABS: COVID-19 RT-PCR UVMMC Result Negative (Negative)
== END 2020-05-29 19:38 ==
LOC: NCHCN 19:18
PROVIDERS: PCP Family Medicine; Visit Provider Nurse Practitioner Family
DX: Z11.52 Encounter for screening for COVID-19 (principal)
CPT/HCPCS: U0003

== ENCOUNTER 2020-06-05 03:26 | Outpatient (CLI) | payer MEDICARE, SELFPAY ==
[2020-06-05 13:49] LABS: Hemoglobin A1C 7.6 % (<5.7)
== END 2020-06-05 03:46 ==
PROVIDERS: PCP Family Medicine; Visit Provider Family Medicine
DX: E11.9 Type 2 diabetes mellitus without complications (principal)
CPT/HCPCS: 36415; 83036

== ENCOUNTER 2020-08-19 03:40 | Outpatient (CLI) | payer MEDICARE, SELFPAY ==
[2020-08-20 14:14] LABS: COVID-19 RT-PCR UVMMC Result Negative (Negative)
== END 2020-08-19 03:41 | disposition home or self-care (01) ==
LOC: LBO 03:40
PROVIDERS: PCP Family Medicine; Visit Provider Family Medicine
DX: Z20.822 Contact with and (suspected) exposure to COVID-19 (principal)
CPT/HCPCS: U0003; U0005

== ENCOUNTER 2020-09-02 09:11 | Outpatient (CLI) | payer MEDICARE, SELFPAY ==
[2020-09-02 15:01] LABS: Hemoglobin A1C 7.7 % (<5.7)
== END 2020-09-02 09:12 | disposition home or self-care (01) ==
LOC: LBO 09:13
PROVIDERS: PCP Family Medicine; Visit Provider Family Medicine
DX: E11.9 Type 2 diabetes mellitus without complications (principal)
CPT/HCPCS: 36415; 83036

== ENCOUNTER 2020-11-05 17:16 | Outpatient (CLI) | payer MEDICARE, SELFPAY ==
--- NOTE | 2020-11-05 17:15 | RT.EKG_ITS ---
APPROVED REPORT Exam: Resting ECG Reason for Exam: Shortness of breath Patient Location: O HR:84 bpm ECG Measurements Heart Rate 84 AXIS DE 169 P 62 QRSd 66 QRS -18 QT 358 T 57 QTc 424 Conclusion Sinus rhythm...normal P axis, V-rate 60- 99 Low voltage, precordial leads...precordial leads <1.0mV
== END 2020-11-05 17:17 | disposition home or self-care (01) ==
LOC: DI.CM 17:17
PROVIDERS: PCP Family Medicine; Visit Provider Physician Assistant
DX: R06.02 Shortness of breath (principal)
CPT/HCPCS: 93010

== ENCOUNTER 2020-11-06 15:06 | Outpatient (CLI) | payer MEDICARE, SELFPAY ==
--- NOTE | 2020-11-06 12:45 | DI.CT_ITS ---
Exam(s) CT CHEST PE CTA EXAM: CT CHEST PE CTA CLINICAL HISTORY: exertional SOB x 3 weeks r/o PE, CA hx, R06.02. TECHNIQUE: Imaging Protocol: CT angiography of the chest was performed using pulmonary embolus kaycee col. Multi planar reconstructions were performed. CONTRAST MATERIAL: Intravenous: Omnipaque 350 Contrast volume: 100 cc COMPARISON: CR,XR XR CHEST 2V PA LATERAL from 12/23/[address] BRAIN NECK CTA from 12/23/2019 FINDINGS: CHEST: PULMONARY ARTERIES: There are no intraluminal filling defects to suggest acute pulmonary emboli. LUNGS: There are mild benign-appearing increased markings in the anterior segment of the left upper l obe. No other significant left lung findings. Somewhat elevated right hemidiaphragm is noted, as se en on chest x-ray December 2019.. There are no pleural effusions. There are no significant focal find ings in trachea and mainstem bronchi. MEDIASTINUM: There is no hilar nor mediastinal adenopathy. Visualized thyroid unremarkable.Moderate s ize hiatal hernia noted CARDIAC: Heart size upper normal. There is no pericardial effusion.Caliber of the thoracic aorta is within normal limits. There is no significant shift of the interventricular septum. PARTIALLY VISUALIZED UPPERMOST ABDOMEN: Cholelithiasis. Nonobstructive calculi in both kidneys. OSSEOUS: No significant osseous lesions.. IMPRESSION: 1. No evidence of acute pulmonary emboli. No evidence of pulmonary infarction.No pleural effusions. 2. Elevated right hemidiaphragm, as was also evident on prior chest x-ray December 2019. No significan t right lung findings. Mild benign-appearing increased markings left upper lobe. No pleural effusio ns. No hilar nor mediastinal adenopathy 3. Gallstones noted. Also few nonobstructive calculi in the kidneys. RADIATION DOSE DELIVERED: 222.48mGy.cm Total DLP DATA REPOSITORY: All CT scans at this facility are submitted to the National Radiology Data Registry (NRDR) Dose Index Registry (DIR) with the [employer] (ACR). RADIATION OPTIMIZATION: All CT scans at this facility use at least one of these dose optimization te chniques: automated exposure control; mA and/or kV adjustment per patient size (includes targeted exa ms where dose is matched to clinical indication); or iterative reconstruction.
[2020-11-06 14:25] LABS: Hemoglobin A1C 7.6 % (<5.7)
[2020-11-06 14:46] LABS: ALT 17 U/L (14-59); AST 15 U/L (15-37); Albumin 3.6 g/dL (3.4-5.0); Alkaline Phosphatase 76 U/L (46-116); Anion Gap 13.5 mmol/L (3-11); BUN 21 mg/dL (7-18); Bilirubin, Total 0.4 mg/dL (0.2-1.0); CO2 24.5 mmol/L (21.0-32.0); CREATININE 1.2 mg/dL (0.55-1.02); Chloride 102 mmol/L (98-107); Estimated GFR 43.45 (mL/min/1.73m2); Glucose 182 mg/dL (74-106); Sodium 140 mmol/L (136-145); TSH (W/Ref FT4) 0.78 uIU/mL (0.36-3.74); Total Protein 6.9 g/dL (6.4-8.2)
--- OUTSIDE RECORDS SUMMARY | 2020-11-06 15:20 | XMS_ITS ---
:1940 Author Care Team Providers Name Role Phone DR. SISI ESTRELLA Primary Care Provider [phone] DR. SISI ESTRELLA Referring Provider [phone] Allergies Code Code System Name Reaction Severity Status Onset Adhesive Tape ? ? Active ? 723 RxNorm Amoxicillin ? ? Active ? Sulfa ? ? Active ? (Sulfonamide Antibiotics) Medications Name Status Start Date Stop Date ? ? anastrozole 1 mg tablet Completed ? 02/16/20 19 Take 1 tablet every day by oral route. ascorbic acid (vitamin C) ER 1,000 mg tablet,extended release Ac tive 05/28/2019 Not available Take 1 tablet every day by oral route. aspirin 81 mg tablet,delayed release Active 05/28/2019 Not available Take 1 tablet every day by oral route. calcium carb 600 mg(1,500 mg)-vit D3 200 unit-minerals chewa ble tablet Active 05/28/2019 Not available Take 1 tablet every day by oral route. cetirizine 10 mg tablet Active 05/28/2019 Not avai lable Take 1 tablet every day by oral route. clobetasol 0.05 % topical cream Active 05/28/2019 Not available APPLY A THIN LAYER TO THE AFFECTED AREA(S) BY TOPICAL ROUTE 2 T IMES PER DAY glipizide 5 mg tablet Active 05/28/2019 Not availa ble Take 1 tablet every day by oral route. hydrochlorothiazide 12.5 mg tablet Active 05/28/2019 Not available Take 1 tablet every day by oral route. Lactobacillus acidophilus 10 billion cell capsule Active 05/28/2019 Not available Take 1 capsule every day by oral route. metformin 1,000 mg tablet Active 05/28/2019 Not av ailable Take 1 tablet twice a day by oral route. multivitamin Completed ? 02/15/2019 omeprazole 20 mg tablet,delayed release Active 05/28/19 20 Not available Take 1 tablet every day by oral route. PreserVision AREDS Active 05/28/2019 Not available trazodone 100 mg tablet Active 05/28/2019 Not avai lable Take 1 tablet every day by oral route. venlafaxine 37.5 mg tablet Active 05/28/2019 Not a vailable Take 1 tablet every day by oral route. Problems Name Status Onset Date Source ? Malignant Tumor of Breast Active 02/15/2019 ? Type 2 Diabetes Mellitus Active 02/15/2019 ? Hyperlipidemia Active 02/15/2019 ? Gout Active 02/15/2019 ? Anemia Active 02/15/2019 ? Depressive Disorder Active 02/15/2019 ? Thrombophlebitis of Cavernous Sinus Active 02/15/2019 ? Impacted Cerumen Active 02/15/2019 ? Essential Hypertension Active 02/15/2019 ? Hypertensive Disorder Active 02/15/2019 ? Asthma Active 02/15/2019 ? Gastroesophageal Reflux Disease Active 02/15/2019 ? Acute Gastric Ulcer with Obstruction Active 02/15/2019 ? Hiatal Hernia Active 02/15/2019 ? Renal Failure Syndrome Active 02/15/2019 ? Chronic Urinary Tract Infection Active 02/15/2019 ? Atrophic Vaginitis Active 02/15/2019 ? Eczema Active 02/15/2019 ? Inflamed Seborrheic Keratosis Active 02/15/2019 ? Arthritis Active 02/15/2019 ? Osteopenia Active 02/15/2019 ? Fatigue Active 02/15/2019 ? Unintentional Weight Loss Active 02/15/2019 ? Choking Active 02/15/2019 ? Dysphagia Active 02/15/2019 ? Hypoxia Active 02/15/2019 ? Polycystic Ovary Syndrome Active 02/15/2019 ? Procedures Date Name Performed by ? 05/10/2016 Lumpectomy Information not avai lable Notes: lefft breast 05/10/2014 Cataract Surgery Information not avai lable 05/10/2014 Breast Biopsy Information not avai lable 05/10/2010 Praful Fundoplication Information not av ailable 05/10/2008 Breast Biopsy Information not avai lable 05/10/2000 Removal of Toenail Information not avai lable 05/10/1992 Open Reduction of Fracture with Internal Fixation Information not available Notes: left leg 05/10/1992 Open Reduction of Fracture with Informat ion not available Internal Fixation 05/10/1990 Lumpectomy Information not avai lable Notes: right 05/10/1990 Lumpectomy Information not avai lable ? Appendectomy Information not avai lable ? Hysterectomy Information not avai lable ? Thoracentesis Information not avai lable ? Hernia Repair Information not avai lable ? Operation for Anti-incontinence Informat ion not available ? Dilation of Esophagus Information not av ailable Notes: lymph node removed left b reast Results Lab Results None recorded. Past Encounters None recorded. Social History Tobacco Smoking Status Never Smoker Notes: 02/15/19 Vaccine List None recorded. Plan of Care Reminders Provider Appointments None ? ? recorded. Lab None ? ? recorded. Referral None ? ? recorded. Procedures None ? ? recorded. Surgeries None ? ? recorded. Imaging None ? ? recorded. Vitals Height Weight BMI Blood Pressure 152.4 cm 55.34 kg 23.8 kg/m2 134/62 mm[Hg]
== END 2020-11-06 15:26 ==
PROVIDERS: PCP Family Medicine; Visit Provider Physician Assistant
DX: K80.20 Calculus of gallbladder without cholecystitis without obstruction (principal); J98.6 Disorders of diaphragm; N20.0 Calculus of kidney; R06.02 Shortness of breath; Z85.9 Personal history of malignant neoplasm, unspecified
CPT/HCPCS: 71275; 80053; 83036; 84443

== ENCOUNTER 2020-11-07 11:14 | Outpatient (CLI) | payer MEDICARE, SELFPAY ==
--- NOTE | 2020-11-07 14:01 | DI.US_ITS ---
APPROVED REPORT EXAM: Comprehensive 2D, Doppler, and color-flow Echocardiogram Patient Location: Out-Patient [facility] Supervisor: Simi Gutierrez RDCS (AE) Indications: Exertional SOB Other Information Study Quality: Adequate Conclusion Left Ventricle : The left ventricle is normal size. The left ventricular systolic function is normal. The left ventricular ejection fraction is within the normal range. There is normal left ventricular wall thickness. LVEF is 59%. Right Ventricle : The right ventricle is normal size. The right ventricular systolic function is norm al. The RVSP is 16.1mmHg. Atria : The left atrium size is normal. The right atrium size is normal. Valves: There are no hemodynamically significant valvular lesions. Great Vessels : The aortic root is normal in size. The ascending aorta is mildly dilated. Aortic arch is not well visualized. IVC is normal in size and collapses >50% with inspiration. Wall motion Left Ventricle The left ventricle is normal size. The left ventricular systolic function is normal. The left ventric ular ejection fraction is within the normal range. There is normal left ventricular wall thickness. T here is normal LV segmental wall motion. The left ventricular diastolic function is normal. There is no ventricular septal defect visualized. LVEF is 59%. Right Ventricle The right ventricle is normal size. The right ventricular systolic function is normal. The RVSP is 16 .1mmHg. Atria The left atrium size is normal. The right atrium size is normal. The interatrial septum is intact wit h no evidence for an atrial septal defect. Aortic Valve The aortic valve is normal in structure. Aortic valve is trileaflet. There is no aortic valvular sten osis. No aortic regurgitation is present. Mitral Valve Mild mitral annular calcification. No evidence of mitral valve stenosis. Trace mitral regurgitation. Tricuspid Valve The tricuspid valve is normal in structure. There is no tricuspid valve stenosis. Trace tricuspid reg urgitation. Pulmonic Valve The pulmonary valve is normal in structure. There is no pulmonic valvular stenosis. There is no pulmo vannessa valvular regurgitation. Great Vessels The aortic root is normal in size. The ascending aorta is mildly dilated. Aortic arch is not well vis ualized. IVC is normal in size and collapses >50% with inspiration. Pericardium There is no pericardial effusion. 2D Dimensions IVSD d PLAX 0.93 cm F: 0.6-1.0 LV Vol A2C d MOD 62.8 mL LVPW d PLAX 0.96 cm F: 0.6 - 1.0 LV Vol A4C d MOD 53.4 mL LVID d PLAX 3.47 cm F: 3.8 - 5.2 LA vol/ BSA A2C s A-L 15.6 mL/m2 LVDs 2.40 cm F: 2.2 - 3.5 LA vol/ BSA A4C s A-L 14.0 mL/m2 Ao Root d 2.87 cm F: 2.7 - 3.3 LA Vol/ BSA Biplane s A-L 16.2 mL/m2 RA Area A4C 9.95 cm2 LA Area A4C s MOD 11.05 cm2 RA Vol/ BSA A4C s A-L 13.3 mL/m2 LA Area A2C s MOD 10.64 cm2 Ao Asc Diam d 3.36 cm F: 2.3 - 3.1 LV EF A4C MOD 59.4 % LV EF Teichholz 58.6 % LV EF A2C MOD 59.3 % LVEF (Harding's) 58.33 % F: 54 - 74 LV EF Biplane MOD 58.3 % LV Volume 49.73 mL F: 46 - 106 SV 35.07 mL LV Volume Index 32.71 mL/m2 F: 29 - 61 SV Index 22.94 mL/m2 LV Vol Biplane MOD 60.1 mL FS 30.20 % M-Mode TAPSE 2.16 cm (M/F) >1.7 LV Diastology MV E' medial 0.049 (>0.07 m/s) E/A Ratio 0.6 LV E/e MED 12.25 (<14) MV E Vmax 0.60 (0.4-1.3 m/s) MV E' lateral 0.062 (>0.1 m/s) MV A Vmax 0.95 (0.4-1.3 m/s) LV E/e LAT 9.70 (<14) MV E/A Ratio 0.61 MV E/E' medial 12.27 MV E/E' lateral 9.74 Aortic Valve LVOT Area 2.90 cm2 AoV Area Vmax 2.21 cm2 LVOT Vmax 0.81 m/s AoV Area/ BSA (Vmax) 1.44 cm2/m2 LVOT Mean Adebayo. 0.54 m/s PLACIDO Mean Adebayo. 2.03 cm2 LVOT Peak Grad 2.6 mmHg PLACIDO Mean Adebayo. Index 1.33 cm2/m2 LVOT Mean Grad 1.4 mmHg LVOT VTI 0.157 m LVOT Diam s 1.90 cm AoV Vmax 1.06 m/s Velocity Ratio 0.76 AoV Mean Adebayo. 0.77 m/s AoV Peak Grad 4.5 mmHg LVOT SV 45.62 mL AoV Mean Grad 2.7 mmHg AoV VTI 0.198 m AoV Area VTI 2.30 cm2 AoV Area/ BSA (VTI) 1.51 cm/m2 Mitral Valve MV DT 222 (160-240 msec) MV PHT 64 msec MV Area PHT 3.42 cm2 Pulmonary Valve PV Vmax 0.92 (0.5-1.5 m/s) RVOT Peak Gr. 1.99 mmHg PV Peak Grad 3.4 mmHg RVOT Mean Gr. 0.95 mmHg PV Mean Grad 1.8 mmHg RVOT VTI 0.114 m PV VTI 0.173 m RVOT Vmax 0.71 m/s Tricuspid Valve TR Peak Grad 13.0 mmHg TR Vmax 1.81 m/s RA Pressure 3.00 mmHg RVSP (TR) 16.1 mmHg
== END 2020-11-07 11:34 ==
PROVIDERS: PCP Family Medicine; Visit Provider Physician Assistant
DX: R06.02 Shortness of breath (principal); I77.810 Thoracic aortic ectasia
CPT/HCPCS: 93016; 93018; 93306

== ENCOUNTER 2020-11-14 03:02 | Outpatient (CLI) | payer MEDICARE, SELFPAY ==
[2020-11-14 14:24] LABS: Abs Immature Grans 0.04 10^3/uL (0.0-0.06); Absolute Basophil Count 0.05 10^3/uL (0.0-0.2); Absolute Eosinophil Count 0.71 10^3/uL (0.0-0.7); Absolute Lymphocyte Count 2.71 10^3/uL (1.2-3.4); Absolute Monocyte Count 0.63 10^3/uL (0.1-0.8); Absolute Neutrophil Count 5.33 10^3/uL (1.2-6.7); Basophils % 0.5; Eosinophils % 7.5; HCT 37.4 % (36.0-46.0); HGB 11.2 g/dL (11.2-15.7); Immature Grans % 0.4; Lymphocytes % 28.6; MCHC 29.9 % (32.0-36.0); MPV 8.9 fL (8.0-11.0); Monocytes % 6.7; Neutrophils % 56.3; Nucleated RBC 0 %; Platelet Count 302 10^3/uL (130-400); RBC 4.86 10^6/uL (3.93-5.22); RDW 17.2 % (11.7-14.6); RDW-SD 47.3 fL; WBC 9.47 10^3/uL (4.4-10.8)
[2020-11-14 14:29] LABS: ALT 17 U/L (14-59); AST 16 U/L (15-37); Albumin 3.8 g/dL (3.4-5.0); Alkaline Phosphatase 72 U/L (46-116); Anion Gap 13.9 mmol/L (3-11); BUN 19 mg/dL (7-18); Bilirubin, Total 0.5 mg/dL (0.2-1.0); CO2 25.1 mmol/L (21.0-32.0); CREATININE 1.1 mg/dL (0.55-1.02); Calcium 9.8 mg/dL (8.5-10.1); Chloride 102 mmol/L (98-107); Estimated GFR 48.04 (mL/min/1.73m2); Glucose 161 mg/dL (74-106); Potassium 4.5 mmol/L (3.5-5.1); Sodium 141 mmol/L (136-145); Total Protein 7.1 g/dL (6.4-8.2)
== END 2020-11-14 03:03 | disposition home or self-care (01) ==
LOC: LBO 03:02
PROVIDERS: Internal Medicine; PCP Family Medicine; Visit Provider Family Medicine
DX: Z85.3 Personal history of malignant neoplasm of breast (principal); I10 Essential (primary) hypertension
CPT/HCPCS: 36415; 80053; 85025

== ENCOUNTER 2020-11-15 15:36 | Outpatient (REF) | payer MEDICARE, SELFPAY | END 2020-11-17 15:37 | disposition home or self-care (01) | LOC: LBN 15:36 | PROVIDERS: PCP Family Medicine; Visit Provider Nurse Practitioner Family | DX: N39.0 Urinary tract infection, site not specified (principal) | CPT/HCPCS: 87086 ==

== ENCOUNTER 2020-11-21 13:55 | Outpatient (CLI) | payer MEDICARE, SELFPAY ==
--- NOTE | 2020-11-21 09:30 | DI.US_ITS ---
Exam(s) US RENAL EXAM: US RENAL CLINICAL HISTORY: r/o obstructing renal stones R1.9 HEMATURIA TECHNIQUE: Ultrasound of both kidneys performed using standard protocol. COMPARISON: CT CT CHEST PE CTA from 11/06/2020 CT scan 06/16/2019 also reviewed. FINDINGS: RIGHT KIDNEY: Measures 9.3 cm in length. There is a small 9 millimeters cyst in the mid-superior pole region. Ther e is some cortical scarring noted. There is a 5 millimeter nonobstructive calculus in the midpole level. LEFT KIDNEY: Measures 10.6 cm in length. Few small cortical cysts are noted. Largest measures 1 cm at approximat dora midpole level. Some cortical scarring also noted as well as some decreased corticomedullary diff erentiation. There appears to be a nonobstructive 3 millimeter calculus in the inferior pole calyx r egion. URINARY BLADDER: Prevoid volume is 101 cc Postvoid volume not performed. There is no evidence of obvious bladder mass nor diverticuli on these images.. Ureterovesical jets: Not visualized IMPRESSION: 1. Small benign-appearing bilateral renal cysts. No solid renal masses. 2. Solitary nonobstructive small calculus in each kidney as described above. No hydronephrosis. 3. Decreased corticomedullary differentiation left kidney and some cortical scarring bilaterally not ed. No obvious abnormality in the urinary bladder which contain only 101 cc on this study. DATA REPOSITORY:
== END 2020-11-21 14:15 ==
PROVIDERS: PCP Family Medicine; Visit Provider Nurse Practitioner Family
DX: N20.0 Calculus of kidney (principal); N28.1 Cyst of kidney, acquired; N28.89 Other specified disorders of kidney and ureter
CPT/HCPCS: 76770

== ENCOUNTER 2020-11-22 13:33 | Outpatient (REF) | payer MEDICARE, SELFPAY | END 2020-11-22 13:34 | disposition home or self-care (01) | LOC: LBN 13:33 | PROVIDERS: PCP Family Medicine; Visit Provider Physician Assistant | DX: N39.0 Urinary tract infection, site not specified (principal) | CPT/HCPCS: 87077; 87086; 87186 ==

== ENCOUNTER 2021-01-14 19:36 | Outpatient (REF) | payer MEDICARE, SELFPAY ==
[2021-01-14 21:22] LABS: Bilirubin Negative (Negative); Blood Moderate (Negative); Clarity Cloudy (Clear); Glucose Negative (Negative); Ketones Trace mg/dL (Negative); Leukocyte Esterase Large (Negative); Nitrite Negative (Negative); Specific Gravity >= 1.030 (1.005-1.025); Urobilinogen 0.2 EU/dL (Up TO 0.2)
[2021-01-14 21:38] LABS: C & S Indicated? Yes; WBC >50 HPF (0-5)
== END 2021-01-14 19:37 | disposition home or self-care (01) ==
LOC: LBN 19:36
PROVIDERS: PCP Family Medicine; Visit Provider Family Medicine
DX: R30.0 Dysuria (principal); N39.0 Urinary tract infection, site not specified
CPT/HCPCS: 87077; 81003; 81015; 87086; 87186; 87480; 87510; 87660

== ENCOUNTER 2021-02-03 15:11 | Outpatient (REF) | payer MEDICARE, SELFPAY ==
[2021-02-03 15:04] LABS: Bilirubin Negative (Negative); Blood Negative (Negative); Clarity Clear (Clear); Glucose Negative (Negative); Ketones Negative (Negative); Leukocyte Esterase Negative (Negative); Nitrite Negative (Negative); Specific Gravity >= 1.030 (1.005-1.025); Urobilinogen 0.2 EU/dL (Up TO 0.2)
[2021-02-03 15:54] LABS: COMMENT (LAB VIEW ONLY) 101.23 mg/dL; Microalb ug/mg Crea 18.1 ug/mg Cr
== END 2021-02-03 15:12 | disposition home or self-care (01) ==
LOC: LBN 15:11
PROVIDERS: PCP Family Medicine; Visit Provider Family Medicine
DX: E11.9 Type 2 diabetes mellitus without complications; R35.0 Frequency of micturition
CPT/HCPCS: 81003; 82043; 82570

== ENCOUNTER 2021-03-25 17:58 | Outpatient (REF) | payer MEDICARE, SELFPAY ==
[2021-03-27 10:15] LABS: COVID-19 RT-PCR UVMMC Result Negative (Negative)
== END 2021-03-25 17:59 | disposition home or self-care (01) ==
LOC: LBN 17:58
PROVIDERS: PCP Family Medicine; Visit Provider Physician Assistant
DX: Z20.822 Contact with and (suspected) exposure to COVID-19 (principal); J06.9 Acute upper respiratory infection, unspecified
CPT/HCPCS: U0003; U0005

== ENCOUNTER 2021-05-30 01:59 | Outpatient (CLI) | payer MEDICARE, SELFPAY ==
[2021-05-30 11:55] LABS: HCT 35.9 % (36.0-46.0); HGB 10.6 g/dL (11.2-15.7); MCHC 29.5 % (32.0-36.0); MCV 77.9 fL (80-95); MPV 9.6 fL (8.0-11.0); Platelet Count 332 10^3/uL (130-400); RBC 4.61 10^6/uL (3.93-5.22); RDW 15.8 % (11.7-14.6); RDW-SD 44.8 fL; WBC 7.69 10^3/uL (4.4-10.8)
[2021-05-30 12:31] LABS: Iron 31 ug/dL (50-170); Total Iron Binding Capacity 438 ug/dL (250-450); Transferrin Sat 7 % (15-50)
[2021-05-30 12:47] LABS: Ferritin 6 ng/mL (8-252)
== END 2021-05-30 02:00 | disposition home or self-care (01) ==
LOC: LBO 02:02
PROVIDERS: PCP Family Medicine; Visit Provider Family Medicine
DX: D64.9 Anemia, unspecified (principal); R53.83 Other fatigue
CPT/HCPCS: 36415; 85027; 82728; 83540; 83550

== ENCOUNTER 2021-06-07 16:55 | Outpatient (REF) | payer MEDICARE, SELFPAY ==
[2021-06-07 15:13] LABS: Bilirubin Negative (Negative); Blood Large (Negative); Clarity Cloudy (Clear); Glucose Negative (Negative); Ketones Trace mg/dL (Negative); Leukocyte Esterase Small (Negative); Nitrite Negative (Negative); Specific Gravity >= 1.030 (1.005-1.025); Urobilinogen 0.2 EU/dL (Up TO 0.2); pH 5.5 (5-8)
[2021-06-07 15:20] LABS: Bacteria Moderate HPF (Negative); Epithelial Cells Few HPF (Negative); RBC >50 HPF (0-2)
[2021-06-07 15:21] LABS: C & S Indicated? Yes; Casts 0-2 Hyaline LPF (Negative); Crystals Negative HPF (Negative); Mucus Trace (Negative)
== END 2021-06-07 16:56 | disposition home or self-care (01) ==
LOC: LBN 16:55
PROVIDERS: PCP Family Medicine; Visit Provider Physician Assistant
DX: N39.0 Urinary tract infection, site not specified (principal)
CPT/HCPCS: 81003; 81015; 87086

== ENCOUNTER 2021-06-18 22:40 | Inpatient (IN) | payer MEDICARE, SELFPAY ==
[2021-06-18] VITALS (13 sets, daily range): BP systolic 140–160; BP diastolic 85–117; PULSE 86–95; RESP 14–24; TEMP 36.9; O2SAT 96–99
--- NOTE | 2021-06-18 22:45 | DI.CT_ITS ---
Exam(s) CT HEAD WO EXAM: CT HEAD WO CLINICAL HISTORY: AMS, Slurred speech. TECHNIQUE: Imaging Protocol: Axial computed tomography images with coronal and sagittal reformatted images were created and reviewed COMPARISON: CT CT BRAIN NECK CTA from 12/23/2019 FINDINGS: There are no skull fractures nor fluid in the visualized paranasal sinuses. There is a polyp or pos t inflammatory retention cyst in left maxillary sinus. No bone dehiscence. No associated fluid There is no evidence of intracranial hemorrhage, mass effect, or shift of midline structures. There are no extra-axial fluid collections. The ventricles are not enlarged or shifted and there is no blo od within the ventricular system nor within the basal cisterns. There is periventricular hypodensity consistent with chronic small vessel disease. There is also a h ypodense CSF density 3 x 2 millimeter finding in the right supra ventricular white matter which is pr obably a nonacute lacunar infarct. There is calcification noted in both vertebral arteries at the skull base.. Stable small calcific de nsity in the left tentorium is unchanged. IMPRESSION: No acute intracranial findings on this noninfused CT scan of the brain. Chronic white matter ischemic changes as described above. Polyp or retention cyst again noted in the left maxillary sinus. No associated fluid level nor bone dehiscence. RADIATION DOSE DELIVERED: 733.35mGy.cm Total DLP DATA REPOSITORY: All CT scans at this facility are submitted to the National Radiology Data Registry (NRDR) Dose Index Registry (DIR) with the [employer] (ACR). RADIATION OPTIMIZATION: All CT scans at this facility use at least one of these dose optimization te chniques: automated exposure control; mA and/or kV adjustment per patient size (includes targeted exa ms where dose is matched to clinical indication); or iterative reconstruction.
--- NOTE | 2021-06-18 22:45 | RT.EKG_ITS ---
APPROVED REPORT Exam: Resting ECG Reason for Exam: AMS, Slurred speech Patient Location: E HR:86 bpm ECG Measurements Heart Rate 86 AXIS IA 169 P 63 QRSd 61 QRS -16 QT 354 T 43 QTc 423 Conclusion Sinus rhythm...normal P axis, V-rate 60- 99 Low voltage, precordial leads...precordial leads <1.0mV
--- NOTE | 2021-06-18 22:55 | W.ED.GENAD ---
Discharge Plan Disposition Patient Disposition: [facility] INPATIENT Condition: Stable Discharge Details Clinical Impression: Aphasia Admit Date/Time: 06/18/21 23:51 Admit Provider: Zaki Inman Attending Provider: Zaki Inman Primary Care Provider: Patricia Palacio ED Provider: Enrique Gallo Discharge Data Discharge Date/Time-TO BE ENTERED AT DEPARTURE: 06/19/21 00:43 Medical Decision Making <Maria Del Carmen Cisneros - Last Filed: 06/19/21 16:11> 81-year-old female presents to the ER via EMS for chief complaint of altered mental status and slurred speech. Per patient report and EMS she is having trouble finding the right words Which reportedly began all day today. Slurred speech is noted on initial exam, patient is alert and oriented x4. No focal neuro deficits noted. She does report that her lips are dry and feel numb and she has a mild headache. She does have some expressive aphasia noted on initial exam. No facial droop, no pronator drift. She reports falling and hitting her head approximately 2 weeks ago while bending over to tie her shoelaces. She denies any fever, nausea vomiting diarrhea, abdominal pain or any other associated symptoms. She does have a past medical history of diabetes type 2, UTI, anemia, gout, CT head without contrast ordered, labs, EKG, urinalysis. Differential diagnosis includes but not limited to CVA, UTI, low blood sugar, Care handed off to oncoming provider Dr. Fernando Gallo MD pending CT results, work-up and possible admission. <Enrique Gallo MD - Last Filed: 06/18/21 23:56> Patient's labs show anemia unchanged from cbc done in May and CT shows no acute findings, chronic ischemic findings. She is stable currently. She has an NIh of 2 on my exam due to aphasia, speech is fragmented and no slurring on my exam. Given possibility of cva not excluded will discuss with hospitalist about admission for observation and MRI tomorrow, is outside window for tpa. discussed with Dr. Inman who accepts for admission, requested aspirin and plavix be given now. Lab Data Lab results reviewed: Yes I reviewed the patient's lab results. ECG Data Attestation: I personally reviewed and interpreted this ECG (s) as follows: Prior ECG tracings: not available for review Interpretation: sinus rhythm, rate of 86, no acute st t wave ischemic findings HPI <Maria Del Carmen Cisneros - Last Filed: 06/19/21 16:11> General Mode of arrival: EMS. Date/Time Provider Initiated Documentation: 06/18/21 22:45. Limitations to Documentation: altered mental status. Information obtained by: patient, EMS, RN notes reviewed and old records reviewed. HPI Narrative: 81-year-old female presents to the ER via EMS for chief complaint of altered mental status and slurred speech. Per patient report and EMS she is having trouble finding the right words Which reportedly began all day today. Slurred speech is noted on initial exam, patient is alert and oriented x4. No focal neuro deficits noted. She does report that her lips are dry and feel numb and she has a mild headache. She does have some expressive aphasia noted on initial exam. No facial droop, no pronator drift. She reports falling and hitting her head approximately 2 weeks ago while bending over to tie her shoelaces. She denies any fever, nausea vomiting diarrhea, abdominal pain or any other associated symptoms. She does have a past medical history of diabetes type 2, UTI, anemia, gout, Related Data Home Medications Medication Instructions Recorded Confirmed aspirin 81 mg tablet,delayed 1 tab PO DAILY tab-cap 08/02/12 06/19/21 release Lactobacillus acidophilus 10 1 cell PO DAILY PRN cap 12/22/18 06/19/21 billion cell capsule (Probiotic) vit C 250 mg-vit E 90 mg-zinc 40 1 tab PO DAILY cap 12/22/18 06/19/21 mg-copper 1 [id number] capsule (PreserVision AREDS-2) cranberry 400 mg capsule 400 mg PO DAILY 06/10/20 06/19/21 triamcinolone acetonide 0.1 % 1 applic TOPICAL BID #80 g 01/14/21 06/19/21 topical cream blood sugar diagnostic (Blood #100 strip 04/16/21 06/07/21 Glucose Test) lancets 30 gauge (OneTouch Delica #100 ea 04/16/21 06/07/21 Plus Lancet) glipizide 10 mg tablet, extended 10 mg PO DAILY #90 tab 05/20/21 06/19/21 release 24 hr hydrochlorothiazide 12.5 mg tablet 12.5 mg PO DAILY #90 tab-cap 22 06/19/21 metformin 1,000 mg tablet 1,000 mg PO BID #180 tab-cap 05/20/21 06/19/21 mirtazapine 7.5 mg tablet 7.5 mg PO QHS #90 tab 05/20/21 06/19/21 omeprazole 20 mg capsule,delayed 20 mg PO DAILY #90 tab-cap 05/20/21 06/19/21 release tolterodine 4 mg capsule,extended 4 mg PO DAILY #30 cap 05/20/21 06/19/21 release 24 hr venlafaxine 75 mg capsule,extended 75 mg PO QPM #90 cap 05/20/21 06/19/21 release 24 hr ferrous fumarate 456 mg (150 mg 456 mg PO DAILY #90 tab 06/02/21 06/19/21 iron) tablet montelukast 10 mg tablet 10 mg PO QHS 06/19/21 06/19/21 trazodone 100 mg tablet 100 mg PO HS 06/19/21 06/19/21 Previous Rx's Medication Instructions Recorded triamcinolone acetonide 0.1 % 1 applic TOPICAL BID #80 g 01/14/21 topical cream blood sugar diagnostic (Blood #100 strip 04/16/21 Glucose Test) lancets 30 gauge (OneTouch Delica #100 ea 04/16/21 Plus Lancet) glipizide 10 mg tablet, extended 10 mg PO DAILY #90 tab 05/20/21 release 24 hr hydrochlorothiazide 12.5 mg tablet 12.5 mg PO DAILY #90 tab-cap 05/20/21 metformin 1,000 mg tablet 1,000 mg PO BID #180 tab-cap 05/20/21 mirtazapine 7.5 mg tablet 7.5 mg PO QHS #90 tab 05/20/21 omeprazole 20 mg capsule,delayed 20 mg PO DAILY #90 tab-cap 05/20/21 release tolterodine 4 mg capsule,extended 4 mg PO DAILY #30 cap 05/20/21 release 24 hr venlafaxine 75 mg capsule,extended 75 mg PO QPM #90 cap 05/20/21 release 24 hr ferrous fumarate 456 mg (150 mg 456 mg PO DAILY #90 tab 06/02/21 iron) tablet Allergies Allergy/AdvReac Type Severity Reaction Status Date / Time Sulfa (Sulfonamide Allergy Intermediate Rash Verified 06/18/21 23:29 Antibiotics) adhesive AdvReac causes Verified 06/18/21 23:29 skin tears amoxicillin AdvReac Vomiting Verified 06/18/21 23:29 General Stated Complaint: GenMedical JON: 2 Review of Systems <Maria Del Carmen Cisneros - Last Filed: 06/19/21 16:11> All systems reviewed & are unremarkable except as noted in HPI and below Constitutional Constitutional: Reports headache(s) (mild) and Denies weakness ENT Ears, Nose, Mouth, and Throat: Reports headache(s) (mild) and Denies disequilibrium Neurologic Neurologic: Reports abnormal speech, Reports headache(s) (mild), Denies localized weakness, Denies convulsions, Reports paresthesias (alexia-oral), Denies tremor(s), Denies disequilibrium and Denies weakness PFSH <Maria Del Carmen Cisneros - Last Filed: 06/19/21 16:11> All Active Problems (Updated 06/19/21 @ 07:22 by Zaki Inman MD) Stroke (Chronic) Anemia (Chronic) Angular cheilitis (Acute) Difficulty sleeping (Acute) Chronic eczematoid otitis externa of both ears (Acute) Frequent UTI (Acute) External ear conductive hearing loss (Acute) Balance disorder (Acute) Pelvic floor dysfunction (Acute) Conductive hearing loss (Acute 04/27/13) Depressive disorder (Acute) Eczema (Acute 12/14/13) Gout (Acute) 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) Urinary incontinence (Chronic 09/27/17) Seborrheic keratoses (Chronic 01/14/17) Osteopenia (Chronic) 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; 07/13 DCIS [facility]-INVASIVE;PER NEEDLE BX 07/02/16 Impaired renal function disorder (Chronic 01/01/14) Hyperlipidemia (Chronic) Hiatal hernia (Chronic) GERD (gastroesophageal reflux disease) (Chronic) EGD; globus two-three times at stretching of the esophagus PARAESOPHAGEAL (QUESTION GASTRIC VOLVULUS) Frequent UTI (Chronic 09/02/17) Essential hypertension (Chronic 03/17/13) Eczema (Chronic 09/21/13) Diabetes mellitus (Chronic 09/05/12) Vaginal atrophy (Chronic) 0 ESTROGEN DUE TO BREAST CANCER Asthma (Chronic) Arthritis (Chronic) left foot DJD Medical History Abnormal mammography 07/02/08 Mammogram 06/15/08-Rt breast Catergory 4. Steretactic biopsy performed 06/28/08. Recurrent;12/18/09-left breast U/S-benign; simple cyst Acute gastric ulcer with obstruction Acute gastric ulcer with obstruction Acute UTI Anemia Anemia Back pain Bilateral impacted cerumen (05/16/15) Chronic otitis externa (12/14/13) Depressive disorder Fatigue (01/14/16) Gout Hematoma rectus Hematoma History of esophageal dilatation History of esophageal dilatation Hypoxia s/p thoracentesis for left hydropneumothorax with resolution of hypoxia. 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 POWERS 06/2014; RIGHT; DR. POWERS Fracture, Open Treatment (~1992) anupama; fractured leg (tib/fib- left leg) H/O surgical procedure 05/10/03 TDT incontinence surgery. toenail removal-2000 History of open reduction and internal fixation (ORIF) procedure 05/10/92 anupama; fractured leg History of open reduction and internal fixation (ORIF) procedure History of repair of hiatal hernia History of repair of hiatal hernia History of thoracentesis left hydropneumothorax w/resolution of hypoxia History of thoracentesis Hysterectomy Hx of PCOS Praful Fundoplication 2011 laproscopic RADIATION 2017-[facility] 1992-[facility] REPAIR OF HH S/P breast biopsy 05/10/08 sterostactic biopsy of right breast; [facility] S/P breast lumpectomy 05/10/90 DCIS S/P cataract extraction 07/26/14; Dr. Powers; left S/P laparoscopic hysterectomy HX of PCOS Sinus infection (~1998) 5 veins blocked in the base of brain related to a serious sinus infection Status post breast lumpectomy Status post cataract extraction Status post laparoscopic hysterectomy Status post Praful fundoplication Status post Praful fundoplication TDT INCONTINECE SURGERY (~2003) Thoracentesis left hydropneumothorax with resolution of hypoxia TOENAIL REMOVAL (~2000) Family History Mother , age 63 Essential hypertension Depression Breast cancer Father , age 77 COPD (chronic obstructive pulmonary disease) Diabetes Brother Diabetes Essential hypertension Maternal Grandfather TB (tuberculosis) Lung disease Heart disease Paternal Grandfather , age 76 Essential hypertension Maternal Grandmother , age 48 Diabetes Essential hypertension Heart disease Paternal Grandmother , CHILD at age 38. Alcohol abuse Heart disease Hypertension MATERNAL FAMILY HX Depression Heart disease PATERNAL FAMILY HX Essential hypertension Social History Smoking/Tobacco Use Status: Never Smoking risk assessment performed?: Yes Alcohol Intake: current Alcohol Intake frequency: holidays/special occasions only Alcohol type: wine Drug use: Never Substance use type: does not use Caregiver/Support person: No Household members: none Housing: house Communication Needs: Hard of Hearing and Corrective Lenses Do you need help understanding health information?: Never Pets and animals: No Sexually active: No Do you think of yourself as: straight/heterosexual Current gender identity: female What is your relationship status?: How often do you talk on the phone with friends or family?: three or more times per week How often do you get together with friends or relatives?: three or more times per week How often do you attend orthodoxy or muslim services?: 4 or more times per year Do you belong to any clubs or organized social groups?: yes Panel score (0-1 are the most socially isolated patients): 3 What type of physical activity do you participate in: walking and other Details: PT 2x/week Duration: 15-30 minutes/day Frequency: 3-4 times per week Lizett/Mandaeism: Caodaism Special lizett needs: No Seatbelt use: always Helmet use: No Drive intox or ride w/intox service parts driver: No Do you feel safe at home: Yes Do you feel safe in your relationship?: Yes Exam <Maria Del Carmen Cisneros - Last Filed: 06/19/21 16:11> Narrative Exam Narrative: Constitutional: Alert and oriented x3. Appears stated age. Normal body habitus. Head: Normocephalic, no trauma. Eyes: Pupils PERRL, Red reflex noted, EOM's intact. Eyelids symmetrical without lesions, discharge, or swelling. ENT: Bilateral TM's WNL, External ear normal to inspection, no mastoid TTP, swelling, or erythema, Nasal turbinates WNL, no nasal discharge. Normal dentition, Posterior pharynx WNL, no exudate. Chest: RRR, Normal S1, S2, distal pulses intact. Resp: Lungs clear to auscultation bilaterally, no wheezes, rales, or rhonchi. Abdomen: Soft, non-distended, Normoactive bowel sounds all 4 quads. Musculoskeletal: Normal gait, 5/5 strength to all four extremities. Skin: No suspicious rashes or lesions. Capillary refill less than 2 sec. Neurologic: Slurred speech noted does have some expressive aphasia intermittently, cranial nerves II-XII intact. Alert and oriented x 3. Motor: No deficits noted. Sensory: Intact bilaterally all 4 extremities. Reflexes: DTR's intact bilaterally.. Hematologic/Lymphatic: No ecchymosis, no lymphadenopathy. Course <Maria Del Carmen Cisneros - Last Filed: 06/19/21 16:11> Vital Signs Vital signs: Vital Signs Temperature 36.9 C 06/18/21 22:44 Pulse 95 H 06/18/21 22:44 Respiratory Rate 14 06/18/21 22:44 Blood Pressure 153/91 H 06/18/21 22:44 Pulse Oximetry 97 06/18/21 22:44 Temperature 36.9 C 06/18/21 22:44 Temperature Source Skin 06/18/21 22:44 Pulse 95 H 06/18/21 22:44 Respiratory Rate 14 02/09/22 22:44 Blood Pressure 153/91 H 06/18/21 22:44 Blood Pressure Position Supine 06/18/21 22:44 Pulse Oximetry 97 06/18/21 22:44 Oxygen Delivery Method Room Air 06/18/21 22:44 Oxygen Flow Rate 0 06/18/21 22:44 Sign Out <Maria Del Carmen Cisneros - Last Filed: 06/19/21 16:11> Sign Out Data: Sign Out Comment: Expressive aphasia, lip numbness and slurred speech with a mild headache since this am. Hx of Type 2 DM, UTI, questionable TIA 7 years ago. Pending Work up, CT and probable admission. Last updated by Maria Del Carmen Cisneros at 06/18/21 23:27
[2021-06-18 23:21] LABS: Abs Immature Grans 0.04 10^3/uL (0.0-0.06); Absolute Basophil Count 0.05 10^3/uL (0.0-0.2); Absolute Eosinophil Count 0.36 10^3/uL (0.0-0.7); Absolute Monocyte Count 0.74 10^3/uL (0.1-0.8); Absolute Neutrophil Count 4.21 10^3/uL (1.2-6.7); Basophils % 0.5; HCT 36.3 % (36.0-46.0); HGB 10.7 g/dL (11.2-15.7); Immature Grans % 0.4; Lymphocytes % 40.7; MCH 23.5 pg (27.0-33.0); MCHC 29.5 % (32.0-36.0); MCV 79.8 fL (80-95); MPV 9.3 fL (8.0-11.0); Monocytes % 8.1; Neutrophils % 46.3; Nucleated RBC 0 %; Platelet Count 322 10^3/uL (130-400); RBC 4.55 10^6/uL (3.93-5.22); RDW 16.1 % (11.7-14.6)
[2021-06-18 23:22] LABS: Bilirubin Negative (Negative); Blood Negative (Negative); Clarity Clear (Clear); Glucose Negative (Negative); Ketones Negative (Negative); Leukocyte Esterase Negative (Negative); Nitrite Negative (Negative); Specific Gravity 1.025 (1.005-1.025); Urobilinogen 0.2 EU/dL (Up TO 0.2); pH 5.5 (5-8)
--- NOTE | 2021-06-18 23:30 | DI.VRAD_ITS ---
PROCEDURE INFORMATION: Exam: CT Head Without Contrast Exam date and time: 06/18/2021 10:55 PM Age: 81 years old Clinical indication: Other: AMS, slurred speech TECHNIQUE: Imaging protocol: Computed tomography of the head without contrast. Radiation optimization: All CT scans at this facility use at least one of these dose optimization techniques: automated exposure control; mA and/or kV adjustment per patient size (includes targeted exams where dose is matched to clinical indication); or iterative reconstruction. Other technique: STROKE PROTOCOL was implemented. COMPARISON: CT BRAIN NECK CTA 12/23/2019 8:28 PM FINDINGS: Brain: No acute intracranial hemorrhage, mass-effect, midline shift, or extra-axial collection is seen. There is patchy white matter hypoattenuation, nonspecific but commonly seen as a chronic sequela of small vessel ischemic disease. The alcantara white matter differentiation appears preserved. Mild symmetric basal ganglia calcification. Cerebral ventricles: There is mild symmetric parenchymal volume loss. The ventricular system and basilar cisterns appear appropriate in size and configuration. Paranasal sinuses: Focal soft tissue density material in the left maxillary sinus has an appearance suggesting retained mucus, a mucous retention cyst, or an inflammatory polyp. Otherwise, the visualized paranasal sinuses appear clear. Mastoid air cells: The mastoid air cells appear well-aerated. Auditory system: The middle ear cavities appear clear. Orbital cavity: The globes and intraorbital structures appear grossly intact. Vasculature: There is atherosclerotic calcification within the intracranial portion of the internal carotid arteries bilaterally. Bones/joints: The bony calvarium appears intact. No depressed skull fracture is seen. Soft tissues: No significant scalp lesion is seen. IMPRESSION: 1. No acute intracranial abnormality seen. 2. Presumed chronic microvascular ischemic white matter change. ASSESSMENT: ASPECTS ([facility] Stroke Program Early CT Score) is 10. Dictated and Authenticated by: Darius Thomas MD. Ordering:BOB Joyce MD
[2021-06-18 23:33] LABS: Prothrombin Time 9.6 sec (9.3-11.0)
[2021-06-18 23:37] LABS: ALT 16 U/L (14-59); AST 20 U/L (15-37); Albumin 3.8 g/dL (3.4-5.0); Alkaline Phosphatase 87 U/L (46-116); Anion Gap 12.1 mmol/L (3-11); BUN 30 mg/dL (7-18); Bilirubin, Total 0.2 mg/dL (0.2-1.0); CO2 25.9 mmol/L (21.0-32.0); CREATININE 1.3 mg/dL (0.55-1.02); Calcium 9.1 mg/dL (8.5-10.1); Chloride 101 mmol/L (98-107); ETHANOL BLOOD 3.2 mg/dL (<10); Estimated GFR 39.51 (mL/min/1.73m2); Glucose 199 mg/dL (74-106); Magnesium 1.8 mg/dL (1.8-2.4); Potassium 4.4 mmol/L (3.5-5.1); Sodium 139 mmol/L (136-145); Total Protein 7.3 g/dL (6.4-8.2); Troponin I < 50 ng/L (<or=60)
[2021-06-19] VITALS (32 sets, daily range): BP systolic 128–171; BP diastolic 67–120; PULSE 86–134; RESP 14–27; TEMP 36.7–37.6; O2SAT 90–99
--- NOTE | 2021-06-19 | DI.MRI_ITS ---
Exam(s) MR BRAIN WO EXAM: MR BRAIN WO CLINICAL HISTORY: aphasia, stroke TECHNIQUE: Multiplanar multisequence MRI of the brain was performed. COMPARISON: CT CT HEAD WO from 06/18/2021 FINDINGS: CEREBRAL PARENCHYMA: There is no evidence of intracranial hemorrhage, mass effect, or shift of midline structures. There are no extra-axial fluid collections. Ventricles are not enlarged or shifted. There is no significant focal signal abnormality in the cerebellar hemispheres nor within the david, m idbrain, and thalami. On FLAIR images there are no foci of Gavi in supra ventricular white matter signal abnormality consis tent with chronic small vessel disease. No abnormal signal on diffusion imaging to suggest restricte d motion at this There is no significant focal signal abnormality evident on DWI imaging to suggest restricted diffusi on/acute ischemic event. However, on susceptibility weighted imaging there is a single small hypointense focus just above the right lateral ventricle, corresponding to area of abnormal signal which was nonhemorrhagic on CT scan performed yesterday. This probably represents a subacute possibly previously hemorrhagic lacunar in farct PITUITARY GLAND: No mass nor parasellar abnormality. No obvious abnormality in the cavernous sinuses. FLOW VOIDS: The expected flow void are noted. No evidence of obvious aneurysm nor obvious vascular ma lformation. See separate MRA report today PARANASAL SINUSES: Left maxillary sinus retention cysts. No fluid level. ORBITS: No obvious findings. IMPRESSION: There is abundant bilateral periventricular signal abnormality consistent with chronic small vessel d isease. In the right supra ventricular white matter-corpus callosum there is a small 3 x 2 millimeter lacunar which is probably subacute. Hypo intense signal on SWI implies that those possibly microhemorrhage at this location previously. No hyperdense blood seen at this location on yesterday's CT scan. DATA REPOSITORY:
--- NOTE | 2021-06-19 | DI.MRI_ITS ---
Exam(s) MR ANGIO NECK WO CLINICAL HISTORY: asphasia, stroke. TECHNIQUE: Multiplanar multisequence MRI of the neck was performed. CONTRAST MATERIAL: None COMPARISON: None. FINDINGS: ANTERIOR CIRCULATION: Common carotid arteries ascend with normal luminal diameters. There does not a ppear to be a hemodynamically significant stenosis at the carotid bifurcations and proximal internal carotid arteries on either side of the neck. Both internal carotid arteries are demonstrated to be n icely patent in the upper neck and skull base-carotid canals. POSTERIOR CIRCULATION: Both vertebral arteries are patent and of equal caliber in the foramen transve rse area with no evidence of intraluminal thrombus nor dissection. At the skull base both vertebral arteries contribute to the formation of the basilar artery. IMPRESSION: 1. Patent carotid arteries in the neck with no evidence of hemodynamically significant stenosis at t he carotid bifurcations and proximal internal carotid arteries. 2. Vertebral arteries are also demonstrated be patent in the neck. No dissection. 3. See separate brain MRA dictation DATA REPOSITORY:
--- NOTE | 2021-06-19 | DI.MRI_ITS ---
Exam(s) MR ANGIO BRAIN WO EXAM: MR ANGIO BRAIN WO CLINICAL HISTORY: aphasia, stroke TECHNIQUE: Performed with [id number] sequence COMPARISON: MR MR BRAIN WO from 06/19/2021 MR MR ANGIO NECK WO from 06/19/2021 FINDINGS: ANTERIOR CIRCULATION: Both internal carotid arteries are patent in the skull base-carotid canals and are also patent cavern ous sinuses. Both ophthalmic arteries are patent and originated conventional fashion off of the intra cavernous internal carotid arteries. Supraclinoid aspects of the internal carotid arteries are patent and nonaneurysmal. Both A1 segments are patent. Both anterior cerebral arteries are patent. There is no aneurysm at the level of the ante rior communicating artery. Middle cerebral arteries are patent bilaterally. No significant stenosis nor intraluminal thrombus in these vessels noted and also no evidence of aneurysm of these vessels. Middle cerebral artery branch es appear to be patent out to the is sylvian fissure branches. POSTERIOR CIRCULATION: Both vertebral arteries are patent at the skull base and both contribute to the formation of the midl ine basilar artery. Posterior inferior cerebellar arteries are patent. Anterior inferior cerebellar a rteries are patent. Distally the basilar artery gives off patent bilateral superior cerebellar arteri es and above this level terminates as patent bilateral posterior cerebral arteries which exhibit no s ignificant stenosis. There is no aneurysm of the tip of the basilar artery. There are no posterior co mmunicating arteries on either side of the [id number] IMPRESSION: 1. Patent intracranial arteries with no evidence of significant stenosis nor intraluminal thrombus no r dissection. 2. No aneurysms evident DATA REPOSITORY:
[2021-06-19 00:05] LABS: Source Nasal/Nares
[2021-06-19] MEDS: Aspirin 325 MG TAB PO (00:09)
[2021-06-19] MEDS: Clopidogrel 75 MG TAB PO (00:10)
[2021-06-19 02:35] LABS: Troponin I < 50 ng/L (<or=60)
[2021-06-19] MEDS: Ondansetron 4 MG/2 ML VIAL IVP (03:22)
[2021-06-19] MEDS: Normal Saline Flush 10 ML SYR IVP (03:25)
--- NOTE | 2021-06-19 07:08 | HPE_ITS ---
Assessment and Plan Assessment and plan (1) Anemia: Status: Chronic Assessment and plan: This appears to be a chronic anemia. It is not severe. (2) Stroke: Status: Chronic Assessment and plan: She has an expressive aphasia which makes it difficult to obtain any history from her. There are no peripheral or other abnormal neurologic signs. She will be started on clopidogrel, aspirin and have an echocardiogram and MRI of the head. A carotid ultrasound will also be ordered. She will be turned over to the hospitalist for care. Speech therapy and neurology consult have been ordered. Review of Systems Constitutional Constitutional: Denies body ache(s), Denies chills, Denies fever(s) and Reports headache(s) ENT Ears, Nose, Mouth, and Throat: Denies dysphagia and Reports headache(s) Cardiovascular Cardiovascular: Denies chest pain, Denies palpitations and Denies dyspnea Respiratory Respiratory: Denies cough and Denies dyspnea Gastrointestinal Gastrointestinal: Denies abdominal pain, Denies dysphagia, Denies diarrhea, Denies loose stools and Denies vomiting Genitourinary Genitourinary: Denies difficulty voiding Neurologic Neurologic: Reports headache(s) Endocrine Endocrine: Denies palpitations PFSH All Active Problems (Updated 06/19/21 @ 07:22 by Zaki Inman MD) Stroke (Chronic) Anemia (Chronic) Angular cheilitis (Acute) Difficulty sleeping (Acute) Chronic eczematoid otitis externa of both ears (Acute) Frequent UTI (Acute) External ear conductive hearing loss (Acute) Balance disorder (Acute) Pelvic floor dysfunction (Acute) Conductive hearing loss (Acute 04/27/13) Depressive disorder (Acute) Eczema (Acute 12/14/13) Gout (Acute) 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) Urinary incontinence (Chronic 09/27/17) Seborrheic keratoses (Chronic 01/14/17) Osteopenia (Chronic) 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; 07/13 DCIS [facility] [place]PER NEEDLE BX 07/02/16 Impaired renal function disorder (Chronic 01/01/14) Hyperlipidemia (Chronic) Hiatal hernia (Chronic) GERD (gastroesophageal reflux disease) (Chronic) EGD; globus two-three times at stretching of the esophagus PARAESOPHAGEAL (QUESTION GASTRIC VOLVULUS) Frequent UTI (Chronic 09/02/17) Essential hypertension (Chronic 03/17/13) Eczema (Chronic 09/21/13) Diabetes mellitus (Chronic 09/05/12) Vaginal atrophy (Chronic) 0 ESTROGEN DUE TO BREAST CANCER Asthma (Chronic) Arthritis (Chronic) left foot DJD Medical History Abnormal mammography 07/02/08 Mammogram 06/15/08-Rt breast Catergory 4. Steretactic biopsy performed 06/28/08. Recurrent;12/18/09-left breast U/S-benign; simple cyst Acute gastric ulcer with obstruction Acute gastric ulcer with obstruction Acute UTI Anemia Anemia Back pain Bilateral impacted cerumen (05/16/15) Chronic otitis externa (12/14/13) Depressive disorder Fatigue (01/14/16) Gout Hematoma rectus Hematoma History of esophageal dilatation History of esophageal dilatation Hypoxia s/p thoracentesis for left hydropneumothorax with resolution of hypoxia. 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 BARNES 06/2014; RIGHT; DR. BARNES Fracture, Open Treatment (~1992) anupama; fractured leg (tib/fib- left leg) H/O surgical procedure 05/10/03 TDT incontinence surgery. toenail removal-2000 History of open reduction and internal fixation (ORIF) procedure 05/10/92 anupama; fractured leg History of open reduction and internal fixation (ORIF) procedure History of repair of hiatal hernia History of repair of hiatal hernia History of thoracentesis left hydropneumothorax w/resolution of hypoxia History of thoracentesis Hysterectomy Hx of PCOS Praful Fundoplication 2010 laproscopic RADIATION 2017-[facility] [place] 1992-[facility] REPAIR OF HH S/P breast biopsy 05/10/08 sterostactic biopsy of right breast; [facility] [place] S/P breast lumpectomy 05/10/90 DCIS S/P cataract extraction 07/26/14; Dr. Barnes; left S/P laparoscopic hysterectomy HX of PCOS Sinus infection (~1998) 5 veins blocked in the base of brain related to a serious sinus infection Status post breast lumpectomy Status post cataract extraction Status post laparoscopic hysterectomy Status post Praful fundoplication Status post Praful fundoplication TDT INCONTINECE SURGERY (~2003) Thoracentesis left hydropneumothorax with resolution of hypoxia TOENAIL REMOVAL (~2000) Family History Mother , age 63 Essential hypertension Depression Breast cancer Father , age 77 COPD (chronic obstructive pulmonary disease) Diabetes Brother Diabetes Essential hypertension Maternal Grandfather TB (tuberculosis) Lung disease Heart disease Paternal Grandfather , age 76 Essential hypertension Maternal Grandmother , age 48 Diabetes Essential hypertension Heart disease Paternal Grandmother , CHILD at age 38. Alcohol abuse Heart disease Hypertension MATERNAL FAMILY HX Depression Heart disease PATERNAL FAMILY HX Essential hypertension Social History Smoking/Tobacco Use Status: Never Smoking risk assessment performed?: Yes Alcohol Intake: current Alcohol Intake frequency: holidays/special occasions only Alcohol type: wine Drug use: Never Substance use type: does not use Caregiver/Support person: No Household members: none Housing: house Communication Needs: Hard of Hearing and Corrective Lenses Do you need help understanding health information?: Never Pets and animals: No Sexually active: No Do you think of yourself as: straight/heterosexual Current gender identity: female What is your relationship status?: How often do you talk on the phone with friends or family?: three or more times per week How often do you get together with friends or relatives?: three or more times per week How often do you attend mu-ism or confucianism services?: 4 or more times per year Do you belong to any clubs or organized social groups?: yes Panel score (0-1 are the most socially isolated patients): 3 What type of physical activity do you participate in: walking and other Details: PT 2x/week Duration: 15-30 minutes/day Frequency: 3-4 times per week Lizett/Protestant: Jewish Special lizett needs: No Seatbelt use: always Helmet use: No Drive intox or ride w/intox caterpillar driver: No Do you feel safe at home: Yes Do you feel safe in your relationship?: Yes Meds Allergies and Home Medications Allergies Allergy/AdvReac Type Severity Reaction Status Date / Time Sulfa (Sulfonamide Allergy Intermediate Rash Verified 06/18/21 23:29 Antibiotics) adhesive AdvReac causes Verified 06/18/21 23:29 skin tears amoxicillin AdvReac Vomiting Verified 06/18/21 23:29 Home Medications Medication Instructions Recorded Confirmed Type aspirin 81 mg tablet,delayed 1 tab PO DAILY tab-cap 08/02/12 06/19/21 History release calcium carbonate 600 mg-vitamin 1 tab PO DAILY 04/15/17 06/07/21 History D3 5 mcg (200 unit) tablet clobetasol 0.05 % topical cream 1 - 2 gm TOPICAL DAILY PRN #1 tube 10/18/17 06/07/21 History (Temovate) Lactobacillus acidophilus 10 1 cell PO DAILY PRN cap 12/22/18 06/07/21 History billion cell capsule (Probiotic) vit C 250 mg-vit E 90 mg-zinc 40 1 tab PO DAILY cap 12/22/18 06/19/21 History mg-copper 1 [id number] capsule (PreserVision AREDS-2) fluticasone propionate 50 2 spray IZZY DAILY #47.4 gm 09/12/19 06/07/21 Rx mcg/actuation nasal spray,suspension cranberry 400 mg capsule 400 mg PO DAILY 06/10/20 06/07/21 History triamcinolone acetonide 0.1 % 1 applic TOPICAL BID #80 g 01/14/21 06/07/21 Rx topical cream blood sugar diagnostic (Blood #100 strip 04/16/21 06/07/21 Rx Glucose Test) lancets 30 gauge (OneTouch Delica #100 ea 04/16/21 06/07/21 Rx Plus Lancet) glipizide 10 mg tablet, extended 10 mg PO DAILY #90 tab 05/20/21 06/19/21 Rx release 24 hr hydrochlorothiazide 12.5 mg tablet 12.5 mg PO DAILY #90 tab-cap 05/20/21 06/19/21 Rx metformin 1,000 mg tablet 1,000 mg PO BID #180 tab-cap 05/20/21 06/19/21 Rx mirtazapine 7.5 mg tablet 7.5 mg PO QHS #90 tab 05/20/21 06/19/21 Rx omeprazole 20 mg capsule,delayed 20 mg PO DAILY #90 tab-cap 05/20/21 06/19/21 Rx release tolterodine 4 mg capsule,extended 4 mg PO DAILY #30 cap 05/20/21 06/19/21 Rx release 24 hr venlafaxine 75 mg capsule,extended 75 mg PO QPM #90 cap 05/20/21 06/19/21 Rx release 24 hr ferrous fumarate 456 mg (150 mg 456 mg PO DAILY #90 tab 06/02/21 06/19/21 Rx iron) tablet montelukast 10 mg tablet 10 mg PO QHS 06/19/21 06/19/21 History trazodone 100 mg tablet 100 mg PO HS 06/19/21 06/19/21 History Exam Const General: cooperative, comfortable, no acute distress and not anxious HENAL Head: normal to inspection and normocephalic Mouth: oral mucosae normal and moist mucous membranes Eyes Pupils: PERRL EOM: EOM intact bilaterally Neck Neck: normal visual inspection and no lymphadenopathy Thyroid: thyroid normal Carotids: normal carotid upstroke and no bruits Resp Auscultation: clear to auscultation bilaterally Cardio Rate: regular rate Rhythm: regular rhythm Heart Sounds: S1 abnormal, S2 normal, no gallops and no murmurs Other: There appears to be a split and fixed S1. GI Palpation: soft, no hepatosplenomegaly, not firm and nontender Neuro Cranial Nerves: CN's II-XI intact bilaterally, PERRL, EOM intact bilaterally, facial strength normal, tongue midline, gag reflex normal and hearing normal Speech: expressive aphasia Motor: muscle tone normal throughout, strength 5/5 throughout, no pronator drift and no tremors Coordination: [id number]-[id number] test normal, jnar-gi-cndo test normal and rapid alternating movement UE normal Extrem General: normal to inspection, no calf tenderness bilaterally and no edema Results Labs Result diagrams: 06/18/21 23:05 06/18/21 23:05 Labs: Laboratory Results - last 24 hr 06/18/21 06/18/21 06/18/21 23:05 23:05 23:05 WBC 9.10 RBC 4.55 Hgb 10.7 L Hct 36.3 MCV 79.8 L MCH 23.5 L MCHC 29.5 L RDW 16.1 H Plt Count 322 MPV 9.3 Immature Gran % 0.4 Neutrophils % 46.3 Lymphocytes % 40.7 Monocytes % 8.1 Eosinophils % 4.0 Basophils % 0.5 Nucleated RBC % 0 Absolute Neutrophils 4.21 Absolute Lymphocytes 3.70 H Absolute Monocytes 0.74 Absolute Eosinophils 0.36 Absolute Basophils 0.05 PT 9.6 INR 1.0 Sodium 139 Potassium 4.4 Chloride 101 Carbon Dioxide 25.9 Anion Gap 12.1 H BUN 30 H Creatinine 1.3 H Estimated GFR/1.73 m2 39.51 Glucose 199 H Calcium 9.1 Magnesium 1.8 Total Bilirubin 0.2 AST 20 ALT 16 Alkaline Phosphatase 87 Troponin I < 50 Total Protein 7.3 Albumin 3.8 Urine Color Urine Clarity Urine pH Ur Specific [place] Urine Protein Urine Ketones Urine Blood Urine Nitrite Urine Bilirubin Urine Urobilinogen Ur Leukocyte Esterase Urine Glucose Ethyl Alcohol 3.2 COVID-19 Source 06/18/21 06/18/21 06/19/21 23:10 23:56 02:10 WBC RBC Hgb Hct MCV MCH MCHC RDW Plt Count MPV Immature Gran % Neutrophils % Lymphocytes % Monocytes % Eosinophils % Basophils % Nucleated RBC % Absolute Neutrophils Absolute Lymphocytes Absolute Monocytes Absolute Eosinophils Absolute Basophils PT INR Sodium Potassium Chloride Carbon Dioxide Anion Gap BUN Creatinine Estimated GFR/1.73 m2 Glucose Calcium Magnesium Total Bilirubin AST ALT Alkaline Phosphatase Troponin I < 50 Total Protein Albumin Urine Color Yellow Urine Clarity Clear Urine pH 5.5 Ur Specific [place] 1.025 Urine Protein Negative Urine Ketones Negative Urine Blood Negative Urine Nitrite Negative Urine Bilirubin Negative Urine Urobilinogen 0.2 Ur Leukocyte Esterase Negative Urine Glucose Negative Ethyl Alcohol COVID-19 Source Nasal/Nares Last Vital Signs Temp 36.9 C 06/19/21 03:14 Pulse 89 06/19/21 00:30 Resp 18 06/19/21 00:40 BP 163/120 H 06/19/21 03:14 Pulse Ox 97 06/19/21 00:40
--- NOTE | 2021-06-19 09:02 | PDOC.CMIN ---
- If Service Date Differs Date of service: 06/19/21 Time of Service: 09:02 Care Management Initial Assess REASON FOR HOSPITALIZATION:: Aphasia PAST MEDICAL HISTORY/PAST SURGICAL HISTORY:: Medical History . Abnormal mammography. 07/02/08 Mammogram 06/15/08-Rt breast Catergory 4. Steretactic biopsy performed 06/28/08. Recurrent;12/18/09-left breast U/S-benign; simple cyst. Acute gastric ulcer with obstruction. Acute gastric ulcer with obstruction. Acute UTI. Anemia. Anemia. Back pain. Bilateral impacted cerumen (05/16/15). Chronic otitis externa (12/14/13). Depressive disorder. Fatigue (01/14/16). Gout. Hematoma. rectus. Hematoma. History of esophageal dilatation. History of esophageal dilatation. Hypoxia. s/p thoracentesis for left hydropneumothorax with resolution of hypoxia. Hypoxia. Imbalance. Impacted cerumen (12/14/13). Impacted cerumen of both ears. 05/16/15. Impacted cerumen of both ears. Impacted cerumen of left ear. 05/28/16. Impacted cerumen of left ear (05/28/16). Impacted cerumen, bilateral. Otomycosis (05/11/13). Polycystic ovaries. Polycystic ovaries. Renal failure syndrome. Thrombosis of cavernous venous sinus. 1998. Thrombosis of cavernous venous sinus. Unintended weight loss (01/14/17). URI (upper respiratory infection). Weight loss (09/27/17). Weight loss, non-intentional. 01/14/17. Surgical History . Biopsy of breast. Stereotactic biopsy of Rt breast on 06/28/08 @ [facility] [place],. [facility] [place] 07/24 15 NEEDLE BX ON 3 SITES. Breast, Lumpectomy (~1990). 1991;DCIS; RIGHT BREAST, 08/10/16;LEFT BREAST LOBULAR CANCER. DILATION. [id number] ESOPHAGEAL (SEVERAL TIMES/TENSION RELATED). Extraction of cataract. 07/26/14; LEFT; DR. POWERS. 06/2014; RIGHT; DR. POWERS. Fracture, Open Treatment (~1992). anupama; fractured leg (tib/fib- left leg). H/O surgical procedure. 05/10/03 TDT incontinence surgery. toenail removal-2000. History of open reduction and internal fixation (ORIF) procedure. 05/10/92 anupama; fractured leg. History of open reduction and internal fixation (ORIF) procedure. History of repair of hiatal hernia. History of repair of hiatal hernia. History of thoracentesis. left hydropneumothorax w/resolution of hypoxia. History of thoracentesis. Hysterectomy. Hx of PCOS. Praful Fundoplication. 2010 laproscopic. RADIATION. 2017-[facility] [place]. 1991-[facility]. REPAIR OF HH. S/P breast biopsy. 05/10/08 sterostactic biopsy of right breast; [facility] [place]. S/P breast lumpectomy. 05/10/90 DCIS. S/P cataract extraction. 07/26/14; Dr. Powers; left. S/P laparoscopic hysterectomy. HX of PCOS. Sinus infection (~1998). 5 veins blocked in the base of brain related to a serious sinus infection. Status post breast lumpectomy. Status post cataract extraction. Status post laparoscopic hysterectomy. Status post Praful fundoplication. Status post Praful fundoplication. TDT INCONTINECE SURGERY (~2003). Thoracentesis. left hydropneumothorax with resolution of hypoxia. TOENAIL REMOVAL (~2000) PREVIOUS FUNCTIONAL STATUS/SOCIAL/FAMILY SUPPORTS:: Tee is and resides in [facility]. She has close friends including Wilner and Reva and a nephew, Zaki ([phone]) who resides in [place] and is her primary health care agent. Kelly identifies as a Latter Day and lists her place of restoration as [facility] in [place], [place] CURRENT FUNCTIONAL STATUS:: Tee had multiple tests throughout the day, and was being evaluated by the speech therapist when CM observed, her, sitting up in her chair. ICU staff report confusion has improved. ADVANCE DIRECTIVES:: Zaki Ng III as agent, Kandy Vizcarra as alternate. Specific burial arrangements listed on AD. Has patient been provided with info about the portal/API?: Yes Did the patient sign up for the portal?: Yes (Previously) CODE STATUS:: DNR/DNI INSURANCE COVERAGE / FINANCIAL ISSUES:: MCR. HAUSER CURRENT HOME/COMMUNITY SERVICES/EQUIPMENT:: None known at this time. PRIMARY CARE PHYSICIAN:: Patricia Palacio DO. POTENTIAL DISCHARGE NEEDS:: Evaluations for increased service needs. PATIENT/FAMILY EDUCATION NEEDS:: Review discharge instructions, discuss Ask Me Three. ANTICIPATED BARRIERS TO DISCHARGE:: None identified at this time. TRANSPORTATION:: Via private vehicle with one of her friends. PLAN:: Anticipate Tee will discharge home when ready per MD. She continues to be evaluated for additional needs prior to discharge, anticipate she will transport home with her close friend and neighbor. CM continues to follow.
[2021-06-19 09:21] LABS: COVID-19 PCR Negative (Negative)
[2021-06-19] MEDS: Aspirin E.C. 81 MG TABEC PO (09:30)
[2021-06-19] MEDS: Atorvastatin 40 MG TAB PO (09:30)
[2021-06-19] MEDS: Clopidogrel 75 MG TAB 225 MG PO (09:32)
[2021-06-19 09:53] LABS: Calculated LDL 103 mg/dL (<100); Cholesterol 184 mg/dL (<200); HDL Cholesterol 60 mg/dL (40-60); Hemoglobin A1C 7.9 % (<5.7); Triglyceride 106 mg/dL (<150)
--- NOTE | 2021-06-19 09:57 | STREC_ITS ---
Speech Therapy Recommendations Report ST Recommendations: SET UP OPERATOR TOOL Communication / Non-Treatment Note Consult order received; chart reviewed. SET UP OPERATOR TOOL spoke with Reta, patient's RN, re: current patient status, reason for consult from Dr Inman, ie expressive aphasia - cog/communication secondary to CVA; discussed 3 oz water swallow test and to monitor for overt s/s aspiration prior to SET UP OPERATOR TOOL arrival this afternoon; per Reta, patient has not demonstrated overt s.s aspiration with water, able to swallow pills well; some concern re: either cognitive change(s) and/or visual field deficits as evidenced by difficulties with bringing straw to mouth (misses straw, puts cup to mouth instead). Plan: SET UP OPERATOR TOOL to return on this date for full assessment/screening as appropriate, provide updated recommendations. Current Recommendations: Discussed holding solid food until SET UP OPERATOR TOOL assessment to assess for any oral dysphagia/mastication effectiveness; patient is likely safe for liquids at this time per RN report. Kylah Oseguera MA CCC-SET UP OPERATOR TOOL Speech-Language Pathologist [place]#[phone] Coding
--- NOTE | 2021-06-19 09:57 | PDOC.STREC ---
Speech Therapy Recommendations Report ST Recommendations: AUTOMATION TECHNICIAN Communication / Non-Treatment Note Consult order received; chart reviewed. AUTOMATION TECHNICIAN spoke with Reta, patient's RN, re: current patient status, reason for consult from Dr Inman, ie expressive aphasia - cog/communication secondary to CVA; discussed 3 oz water swallow test and to monitor for overt s/s aspiration prior to AUTOMATION TECHNICIAN arrival this afternoon; per Reta, patient has not demonstrated overt s.s aspiration with water, able to swallow pills well; some concern re: either cognitive change(s) and/or visual field deficits as evidenced by difficulties with bringing straw to mouth (misses straw, puts cup to mouth instead). Plan: AUTOMATION TECHNICIAN to return on this date for full assessment/screening as appropriate, provide updated recommendations. Current Recommendations: Discussed holding solid food until AUTOMATION TECHNICIAN assessment to assess for any oral dysphagia/mastication effectiveness; patient is likely safe for liquids at this time per RN report. Kylah Oseguera MA CCC-AUTOMATION TECHNICIAN Speech-Language Pathologist [place]#[phone] Coding
--- NOTE | 2021-06-19 14:18 | PGE_ITS ---
Date of Service Date of service: 06/19/21 Time of Service: 16:56 Assessment and Plan Assessment and plan (1) Stroke: Status: Chronic Assessment and plan: continues to have aphasia. further work up including MRI head/neck and echo pending. neurology consult speech consult pending. has been able to take liquids and pills. continue asa, plavix and statin. lipid panel and A1C pending (2) Anemia: Status: Chronic Assessment and plan: This appears to be a chronic anemia. It is not severe. discussed with DR Ortega Exam Const General: comfortable, no acute distress and other (elderly female of stated age) Nutritional Appearance: average body habitus Orientation: alert and awake [facility] Head: normal to inspection, normocephalic and atraumatic Mouth: oral mucosae normal Chest Chest: normal inspection of the chest Resp Effort & Inspection: normal respiratory effort Auscultation: clear to auscultation bilaterally Cardio Rate: regular rate Rhythm: regular rhythm GI Inspection: normal to inspection Palpation: soft Skin General skin exam: no rashes or lesions noted Neuro General: patient alert and patient awake Cranial Nerves: other (now following commands) Speech: expressive aphasia and receptive aphasia Extrem General: normal to inspection, full ROM and no pedal edema Objective Last Vital Signs Temp 36.7 C 06/19/21 12:40 Pulse 95 H 06/19/21 12:40 Resp 20 06/19/21 12:40 BP 148/70 H 06/19/21 12:40 Pulse Ox 95 06/19/21 12:40 Laboratory Results - last 24 hr 06/18/21 06/18/21 06/18/21 23:05 23:05 23:05 WBC 9.10 RBC 4.55 Hgb 10.7 L Hct 36.3 MCV 79.8 L MCH 23.5 L MCHC 29.5 L RDW 16.1 H Plt Count 322 MPV 9.3 Immature Gran % 0.4 Neutrophils % 46.3 Lymphocytes % 40.7 Monocytes % 8.1 Eosinophils % 4.0 Basophils % 0.5 Nucleated RBC % 0 Absolute Neutrophils 4.21 Absolute Lymphocytes 3.70 H Absolute Monocytes 0.74 Absolute Eosinophils 0.36 Absolute Basophils 0.05 PT 9.6 INR 1.0 Sodium 139 Potassium 4.4 Chloride 101 Carbon Dioxide 25.9 Anion Gap 12.1 H BUN 30 H Creatinine 1.3 H Estimated GFR/1.73 m2 39.51 Glucose 199 H Hemoglobin A1c Calcium 9.1 Magnesium 1.8 Total Bilirubin 0.2 AST 20 ALT 16 Alkaline Phosphatase 87 Troponin I < 50 Total Protein 7.3 Albumin 3.8 Triglycerides Total Cholesterol LDL Cholesterol, Calc HDL Cholesterol Urine Color Urine Clarity Urine pH Ur Specific [place] Urine Protein Urine Ketones Urine Blood Urine Nitrite Urine Bilirubin Urine Urobilinogen Ur Leukocyte Esterase Urine Glucose Ethyl Alcohol 3.2 COVID-19 Source SARS-CoV-2 (PCR) 06/18/21 06/18/21 06/19/21 23:10 23:56 02:10 WBC RBC Hgb Hct MCV MCH MCHC RDW Plt Count MPV Immature Gran % Neutrophils % Lymphocytes % Monocytes % Eosinophils % Basophils % Nucleated RBC % Absolute Neutrophils Absolute Lymphocytes Absolute Monocytes Absolute Eosinophils Absolute Basophils PT INR Sodium Potassium Chloride Carbon Dioxide Anion Gap BUN Creatinine Estimated GFR/1.73 m2 Glucose Hemoglobin A1c Calcium Magnesium Total Bilirubin AST ALT Alkaline Phosphatase Troponin I < 50 Total Protein Albumin Triglycerides Total Cholesterol LDL Cholesterol, Calc HDL Cholesterol Urine Color Yellow Urine Clarity Clear Urine pH 5.5 Ur Specific [place] 1.025 Urine Protein Negative Urine Ketones Negative Urine Blood Negative Urine Nitrite Negative Urine Bilirubin Negative Urine Urobilinogen 0.2 Ur Leukocyte Esterase Negative Urine Glucose Negative Ethyl Alcohol COVID-19 Source Nasal/Nares SARS-CoV-2 (PCR) Negative 06/19/21 06/19/21 09:16 09:16 WBC RBC Hgb Hct MCV MCH MCHC RDW Plt Count MPV Immature Gran % Neutrophils % Lymphocytes % Monocytes % Eosinophils % Basophils % Nucleated RBC % Absolute Neutrophils Absolute Lymphocytes Absolute Monocytes Absolute Eosinophils Absolute Basophils PT INR Sodium Potassium Chloride Carbon Dioxide Anion Gap BUN Creatinine Estimated GFR/1.73 m2 Glucose Hemoglobin A1c 7.9 H Calcium Magnesium Total Bilirubin AST ALT Alkaline Phosphatase Troponin I Total Protein Albumin Triglycerides 106 Total Cholesterol 184 LDL Cholesterol, Calc 103 H HDL Cholesterol 60 Urine Color Urine Clarity Urine pH Ur Specific [place] Urine Protein Urine Ketones Urine Blood Urine Nitrite Urine Bilirubin Urine Urobilinogen Ur Leukocyte Esterase Urine Glucose Ethyl Alcohol COVID-19 Source SARS-CoV-2 (PCR)
--- NOTE | 2021-06-19 15:19 | PHA.REVIEW ---
Pharmacy Admission Review - Admission Clinical Review Sulfa (Sulfonamide Antibiotics) Allergy (Intermediate, Verified 06/18/21 23:29) Rash adhesive Adverse Reaction (Verified 06/18/21 23:29) causes skin tears amoxicillin Adverse Reaction (Verified 06/18/21 23:29) Vomiting Resuscitation Status DNR/DNI Height 5 ft Weight 56.1 kg - Renal Dosing Renal Dosing: BUN 30 mg/dL (7-18) H 06/18/21 23:05 Creatinine 1.3 mg/dL (0.55-1.02) H 06/18/21 23:05 Medications needing adjustments: Intervened List of meds needing interventions: metformin, detrol adjusted -- MD aware - Anticoagulation Anticoagulation: Hgb 10.7 g/dL (11.2-15.7) L 06/18/21 23:05 Hct 36.3 % (36.0-46.0) 06/18/21 23:05 Plt Count 322 10^3/uL (130-400) 06/18/21 23:05 INR 1.0 (0.9-1.1) 06/18/21 23:05 Creatinine 1.3 mg/dL (0.55-1.02) H 06/18/21 23:05 DVT Prophylaxis: N/A Therapeutic Anticoagulation: Reviewed Medications: Aspirin - Opiate Usage Evaluate Pain Scale/Pains Meds: N/A - Relevant Labs Sodium 139 mmol/L (136-145) 06/18/21 23:05 Potassium 4.4 mmol/L (3.5-5.1) 06/18/21 23:05 Chloride 101 mmol/L (98-107) 06/18/21 23:05 Magnesium 1.8 mg/dL (1.8-2.4) 06/18/21 23:05 Electrolytes, C-Reactive P, ESR: N/A - DM Control DM Control: Glucose 199 mg/dL (74-106) H 06/18/21 23:05 Hemoglobin A1c 7.9 % (<5.7) H 06/19/21 09:16 Finger Stick Blood Glucose 184 Finger Stick Blood Glucose 184 Finger Stick Blood Glucose 303 Finger Stick Blood Glucose 303 Insulin Dosing: Reviewed (not insulin dependednt, glipizide and metformin on home med list) - Heart Failure/DC Heart Failure/DC: Troponin I < 50 ng/L (<or=60) 06/19/21 02:10 EF%, GIANNA's, B-Blockers, Diuretics: N/A - BP Control BP Control: Blood Pressure 148/70 Blood Pressure 171/82 Blood Pressure 167/73 Blood Pressure 128/92 Blood Pressure 167/73 If elevated: Reviewed List meds needing interventions: hctz not ordered - Qtc Review If Elevated: N/A - IV to PO Switch IV Medications: Reviewed - Home Meds Home Med List reviewed: Reviewed Relevent Home Meds Not ordered & why?: hctz, myrbetriq, omeprazole - Current meds Current Medication Order Review: Reviewed
[2021-06-19 16:46] LABS: Bilirubin Negative (Negative); Blood Negative (Negative); Clarity Clear (Clear); Glucose Negative (Negative); Ketones Negative (Negative); Leukocyte Esterase Trace (Negative); Nitrite Negative (Negative); Urobilinogen 0.2 EU/dL (Up TO 0.2)
[2021-06-19] MEDS: metFORMIN 500 MG TAB PO (16:54)
[2021-06-19 16:56] LABS: Bacteria Negative HPF (Negative); C & S Indicated? No; Casts Negative LPF (Negative); Crystals Negative HPF (Negative); Epithelial Cells Few HPF (Negative); Mucus Negative (Negative); RBC 0-2 HPF (0-2)
--- NOTE | 2021-06-19 17:00 | W.SPSTE ---
Date of service: 06/19/21 Time of Service: 14:01 Subjective Patient referred by Dr Inman given expressive (+?receptive aphasia), cog/communication secondary to CVA. Patient received sleeping and reclined in bed, easily aroused via voice and light touch, patient agreeable to evaluation, mostly able to communicate wants/needs with support and cueing; able to demonstrate comprehension of recommendations for safe p.o. intake, able to express relative esophageal dysphagia history and current symptoms with extended verbal cueing by this clinician, extended time allowed for patient to express self verbally; patient is able to verbalize history of hiatal hernia repair, identify that she is in [place] currently. Intermittent confusion noted throughout visit, as evidenced by difficulties with identification of various objects (straw, hearing aid, pudding cup) despite wearing prescription glasses, as well as fluctuation in aphasia presentation (ie, reports she is 31 years of age, 89 years of age, and then 81; able to read aloud and comprehend simple written phrases in one instance, then expresses significant confusion in next). Patient also wearing bilateral OTE hearing aids during evaluation. *With verbal+visual cueing and extended time provided for self expression, patient is able to verbalize personal goal of calling of recently friend ([employer]), to describe recent acute events/aphasia and her inability to read at [employer] , which she reports is scheduled for this Wednesday. Objective Objective Oral Motor Exam / Dysphagia: Language: see below Hearing: Impaired; b/l HAs Mental Status: AAOx3, recall of current events somewhat impaired, improves with time Speech: grossly WFL, ?mild apraxia of speech, unable to determine OME: Grossly WFL, mild L sided lingual deviation upon protrusion, some fasciculations; dentition is WFL Patient appears able to masticate effectively without notable oral residue present across lunch meal (IDDSI Level 7/0 - Regular, thin) Does endorse intermittent globus related to solid foods primarily (pmhx includes long hx of need for esophageal dilations) which patient is able to demonstrate liquid wash, small bite size, and slow rate. Precautions also written on white board. YSP: Pass (no overt s.s aspiration noted) The Bedside Western Aphasia Battery-Revised (Bedside Record Form), a shortened version of the Western Aphasia Battery Revised (WAB-R), was administered to sample overall language abilities; it is designed to evaluate a patient's language function following stroke, dementia, or other acquired neurological disorder. (Sánchez, 2006). WAB-R Bedside Subtest Scores are indicated below: Subtest Score SPONTANEOUS SPEECH Information Content 3/10 Fluency / Grammatical Competence / Paraphasias 4-510 AUDITORY VERBAL COMPREHENSION Yes/No Questions /10 Sequential Commands 6/10 REPETITION 2/10 NAMING & WORD FINDING Object Naming *08/14 READING N/A WRITING N/A APRAXIA N/A Comments: Reading comprehension - able to read aloud and comprehend simple written phrases in one instance, then expresses significant confusion in next when provided simple written phrases re: aphasia self-advocacy, written meal ticket items; does appear to have more difficulties with lengthier, more complex written and/or verbal language Additional Subtest(s): The Quick Aphasia Battery (QAB) was also administered; the QAB is made up of eight subtests, each comprising sets of items that probe different language domains, vary in difficulty, and are scored with a graded system to maximize the informativeness of each item. From the eight subtests, eight summary measures are derived, which constitute a multidimensional profile of language function, quantifying strengths and weaknesses across core language domains. Word Comprehension:8 Sentence Comprehension: 36 Word Findin Grammatical Construction: 2 Speech Motor Programmin-3 (mild) Repetition: 8 Readin Plan Short Term Goals: 1. Verbal Expression ? Lexical Retrieval: 1.1 Patient will demonstrate use of Semantic Feature Analysis [SFA] approach for linguistic targets at single word level in 80% of opportunities given min-mod cues and use of visual aid within 1-2 weeks Verbal Repetition: 1.5 Patient will demonstrate ability to accurately repeat linguistic content at simple word and phrase levels with min verbal/visual cues during functional tasks within 1-2 weeks 2. Auditory Comprehension ? 2.1? The patient will listen to single sentence with increased length/complexity and answer Y/N comprehension questions presented auditorily at 80% accuracy given moderate verbal / visual cues 2.2 The patient will listen to 2 or more sentences and answer open ended comprehension questions presented auditorily at 60% accuracy given moderate verbal / visual cues 3. Self-Advocacy & Confidence/Motivation 3.1 Patient will identify 1-2 specific strategies for self-advocacy to utilize during communication breakdowns while on unit Coding Diagnoses History of repair of hiatal hernia Z98.890; Z87.19 Praful Fundoplication Stroke I63.9 Sensorineural hearing loss of both ears H90.3 GERD (gastroesophageal reflux disease) K21.9 Aphasia R47.01 History of esophageal dilatation Z98.890 Assessment and Plan Assessment and plan (1) History of repair of hiatal hernia: (2) Praful Fundoplication: (3) Stroke: Status: Chronic (4) Sensorineural hearing loss of both ears: Status: Chronic Assessment and plan: Please ensure patient is wearing bilateral HAs. (5) GERD (gastroesophageal reflux disease): Status: Chronic (6) Aphasia: Status: Acute Assessment and plan: Patient presents with moderate (fluctuating) transcortical motor/wernicke's aphasia at time of this evaluation. Spontaneous Speech (content and fluency), Auditory Verbal Comprehension, and Naming/Word Finding were moderately impaired, and Repetition was significantly impaired. Strengths include following commands especially with visual cues/prompts; patient able to comprehend multiple verbal choices if corresponding visual is also presented (ie, fingers, pictures). These linguistic deficits fluctuated throughout visit but do appear to be improving relative to presentation earlier in AM; further cognitive-communication deficits unclear (patient observed to drink pudding, bite/?eat hearing aid, misses straw to drink from). Overall, language impairment and potential cognitive-communication impairment are likely to have a significant impact on activities of daily living. 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 BOWLING ALLEY OPERATOR to follow while on unit. *If aphasia symptoms persist, further standardized assessment with outpatient follow up is warranted upon discharge. (7) History of esophageal dilatation: Assessment and plan: Patient reports increasing frequency of globus sensation (not new to her per documentation review). Recommend supervision with solid po intake given recent acute events, monitor for overt s/sx aspiration/airway compromise with all solid po intake, risk management as outlined. No diet texture changes recommended at this time. Instrumentation: N/A Diet Texture Modification(s): IDDSI Level(s) 7-Regular Solids, 0-Thin Liquids Medication Intake: Whole with 0-Thin Liquids RISK MANAGEMENT: Oral hygiene BID/2x per day using friction with toothbrush on all oral structures as tolerated HOB upright as tolerated; upright for all PO intake. Encourage physical mobility as tolerated. Level of Assistance/Supervision: Close supervision for all solid PO intake during mealtimes, primarily given cognitive concerns (observed to bite/?eat hearing aid near mealtray), as well as hx esophageal dysphagia with solids Strategies/Adaptations/Assistive Equipment: Reduce auditory and/or visual distractions when eating, Provide verbal and/or visual cues to use recommended strategies, Small sips and bites when eating, Slow rate of intake, Alternate intake of liquids and solids Posture/Positioning Needs: Maintain upright position at least 30 minutes after meals, Avoid meals/snacks 2-3 hours prior to reclining/sleeping, Sleep with head of bed elevated to reduce likelihood of nocturnal reflux Kylah Oseguera MA CCC-BOWLING ALLEY OPERATOR [phone] ? BOWLING ALLEY OPERATOR CPT Codes: 25515 Clinical Swallowing Evaluation 29538 Evaluation of speech, language, voice, communication, and/or auditory processing
--- NOTE | 2021-06-19 17:10 | W.NEUROCONSU ---
Date of service: 06/19/21 Time of Service: 17:10 Assessment and Plan Assessment and plan (1) Aphasia: Status: Acute Assessment and plan: Tee is a 81 year-old, right-handed woman admitted with global aphasia. MRI brain was negative for acute stroke. Clinical symptoms have improved but with some waxing/waning. Recommend EEG as further work-up. Pending EEG, consider further metabolic work-up +/- LP. Ok to stop clopidogrel, statin, TTE. EEG hopefully to be started THERESA. History of Present Illness History of Present Illness Chief Complaint: aphasia Narrative: Handedness: right. HPI: Ms. 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 Tee was brought to the ER by her neighbor yesterday PM with noted word finding difficulties and confusion, found to have global aphasia on exam. It is not clear when this started as Tee lives alone. She notes that for the last several months she has not been feeling well. Used the work pukey and went on to say she was tired/low energy. Seen by her PCP and symptoms thought possibly to be due to anemia for which she is now on iron and vitamin C supplementation. Upon presentation, concern was for stroke. She was on aspirin as an outpatient. This was continued and she was loaded with clopidogrel and started on atorvastatin. She has undergone the work-up as below which showed no acute stroke. Since admission, she has had improvement in her symptoms, but not resolution. She remains globally aphasic. On hindsight, she believes she may have noticed early changes to her speech as early as Wednesday06/15/21 when she was at [employer]. She has no history or family history of epilepsy. In 1998, she developed severe sinusitis that apparently led to extensive CVT. She was told that 4 veins were thrombosed and that she was in a coma for 7 days. She was treated with IV heparin at that time. She has no history of head injuries. 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 They had no children. Work-up: CTH (06/18/21): No acute findings. I reviewed these images personally and this is my personal interpretation. -MRI brain (06/19/21): no acute findings. Moderate chronic vascular changes with old lacunes bilaterally in the centrum semiovale. The lacune on the right was associated with remote microhemorrhage. I reviewed these images personally and this is my personal interpretation. -MRA head/neck (06/19/21): unremarkable. 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) Stroke (Chronic) Anemia (Chronic) Angular cheilitis (Acute) Difficulty sleeping (Acute) Chronic eczematoid otitis externa of both ears (Acute) Frequent UTI (Acute) External ear conductive hearing loss (Acute) Balance disorder (Acute) Pelvic floor dysfunction (Acute) Conductive hearing loss (Acute 04/27/13) Has b/l OTE HAs on unit Depressive disorder (Acute) Eczema (Acute 12/14/13) Gout (Acute) 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) wears b/l OTE HAs Urinary incontinence (Chronic 09/27/17) Seborrheic keratoses (Chronic 01/14/17) Osteopenia (Chronic) 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; 07/13 DCIS [facility]-INVASIVE;PER NEEDLE BX 07/02/16 Impaired renal function disorder (Chronic 01/01/14) Hyperlipidemia (Chronic) Hiatal hernia (Chronic) GERD (gastroesophageal reflux disease) (Chronic) EGD; globus two-three times at stretching of the esophagus PARAESOPHAGEAL (QUESTION GASTRIC VOLVULUS) Frequent UTI (Chronic 09/02/17) Essential hypertension (Chronic 03/17/13) Eczema (Chronic 09/21/13) Diabetes mellitus (Chronic 09/05/12) Vaginal atrophy (Chronic) 0 ESTROGEN DUE TO BREAST CANCER Asthma (Chronic) Arthritis (Chronic) left foot DJD Medical History Abnormal mammography 07/02/08 Mammogram 06/15/08-Rt breast Catergory 4. Steretactic biopsy performed 06/28/08. Recurrent;12/18/09-left breast U/S-benign; simple cyst Acute gastric ulcer with obstruction Acute gastric ulcer with obstruction Acute UTI Anemia Anemia Back pain Bilateral impacted cerumen (05/16/15) Chronic otitis externa (12/14/13) Depressive disorder Fatigue (01/14/16) Gout Hematoma rectus Hematoma History of esophageal dilatation History of esophageal dilatation Hypoxia s/p thoracentesis for left hydropneumothorax with resolution of hypoxia. 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 POWERS 06/2014; RIGHT; DR. POWERS Fracture, Open Treatment (~1992) anupama; fractured leg (tib/fib- left leg) H/O surgical procedure 05/10/03 TDT incontinence surgery. toenail removal-2000 History of open reduction and internal fixation (ORIF) procedure 05/10/92 anupama; fractured leg History of open reduction and internal fixation (ORIF) procedure History of repair of hiatal hernia History of repair of hiatal hernia History of thoracentesis left hydropneumothorax w/resolution of hypoxia History of thoracentesis Hysterectomy Hx of PCOS Praful Fundoplication 2011 laproscopic RADIATION 2017-[facility] 1992-[facility] REPAIR OF HH S/P breast biopsy 05/10/08 sterostactic biopsy of right breast; [facility] S/P breast lumpectomy 05/10/90 DCIS S/P cataract extraction 07/26/14; Dr. Powers; left S/P laparoscopic hysterectomy HX of PCOS Sinus infection (~1998) 5 veins blocked in the base of brain related to a serious sinus infection Status post breast lumpectomy Status post cataract extraction Status post laparoscopic hysterectomy Status post Praful fundoplication Status post Praful fundoplication TDT INCONTINECE SURGERY (~2003) Thoracentesis left hydropneumothorax with resolution of hypoxia TOENAIL REMOVAL (~2000) Family History Mother , age 63 Essential hypertension Depression Breast cancer Father , age 77 COPD (chronic obstructive pulmonary disease) Diabetes Brother Diabetes Essential hypertension Maternal Grandfather TB (tuberculosis) Lung disease Heart disease Paternal Grandfather , age 76 Essential hypertension Maternal Grandmother , age 48 Diabetes Essential hypertension Heart disease Paternal Grandmother , CHILD at age 38. Alcohol abuse Heart disease Hypertension MATERNAL FAMILY HX Depression Heart disease PATERNAL FAMILY HX Essential hypertension Social History Smoking/Tobacco Use Status: Never Smoking risk assessment performed?: Yes Alcohol Intake: current Alcohol Intake frequency: holidays/special occasions only Alcohol type: wine Drug use: Never Substance use type: does not use Caregiver/Support person: No Household members: none Housing: house Communication Needs: Hard of Hearing and Corrective Lenses Do you need help understanding health information?: Never Pets and animals: No Sexually active: No Do you think of yourself as: straight/heterosexual Current gender identity: female What is your relationship status?: How often do you talk on the phone with friends or family?: three or more times per week How often do you get together with friends or relatives?: three or more times per week How often do you attend evangelical or sabianist services?: 4 or more times per year Do you belong to any clubs or organized social groups?: yes Panel score (0-1 are the most socially isolated patients): 3 What type of physical activity do you participate in: walking and other Details: PT 2x/week Duration: 15-30 minutes/day Frequency: 3-4 times per week Lizett/Congregation: Jainism Special lizett needs: No Seatbelt use: always Helmet use: No Drive intox or ride w/intox belly dump driver: No Do you feel safe at home: Yes Do you feel safe in your relationship?: Yes Visit Medication and Allergies Active Medications Generic Name Dose Route Start Last Admin Trade Name Freq PRN Reason Stop Dose Admin Aspirin 81 mg 06/19/21 08:30 06/19/21 09:30 Aspirin E.C. 81 Mg Tabec PO 81 mg DAILY FOREST Administration Glipizide 10 mg 06/19/21 08:30 06/19/21 09:30 Glipizide Cr 10 Mg Tabcr PO 10 mg DAILY FOREST Administration Sodium Chloride 500 mls @ 0 mls/hr 06/18/21 22:53 Saline 500ml Bag IV PRN PRN As Directed IV Miscellaneous Supplies 1 each 06/18/21 23:00 Iv Access IV DIRECTED FOREST Metformin HCl 500 mg 06/19/21 17:00 06/19/21 16:54 Metformin 500 Mg Tab PO 500 mg BID@0800,1700 FOREST Administration Mirtazapine 7.5 mg 06/19/21 22:00 Mirtazapine 15 Mg Tab PO HS FOREST Montelukast Sodium 10 mg 06/19/21 22:00 Montelukast 10 Mg Tab PO HS FOREST Ondansetron HCl 4 mg 06/19/21 03:10 06/19/21 03:22 Ondansetron 4 Mg/2 Ml Vial IVP 4 mg Q6H PRN PRN Administration Sodium Chloride 0 ml 06/18/21 22:53 06/19/21 03:25 Normal Saline Flush 10 Ml Syr IVP 20 ml PRN PRN Administration Tolterodine Tartrate 2 mg 06/20/21 08:30 Tolterodine 2 Mg Capcr PO DAILY FOREST Trazodone HCl 100 mg 06/19/21 22:00 Trazodone 100 Mg Tab PO HS FOREST Venlafaxine HCl 75 mg 06/19/21 20:00 Venlafaxine 75 Mg Capcr PO QPM FOREST Vit C/Vit E/Zinc/Copper/Lutein 1 tab 06/19/21 08:30 06/19/21 09:31 Preservision Tablet PO 1 tab DAILY FOREST Administration Allergies Sulfa (Sulfonamide Antibiotics) Allergy (Intermediate, Verified 06/18/21 23:29) Rash adhesive Adverse Reaction (Verified 06/18/21 23:29) causes skin tears amoxicillin Adverse Reaction (Verified 06/18/21 23:29) Vomiting Exam Narrative Exam Narrative: Physical Exam: Gen: Patient of apparent stated age, NAD Head and face: no facial or cranial abnormalities Neck: Supple, no meningismus, no occipital tenderness CV: + S1, S2, RRR, no murmur Resp: CTA B/L Abd: soft, nontender, nondistended Ext: No edema. No clubbing or cyanosis. No bony deformity. Neuro Exam: Language: fluency, naming, repetition, and comprehension all impaired; able to follow 1 step command across the midline, but not consistently; using wrong words Mental Status: AAOx3, current events and fund of knowledge appear intact; Speech: no dysarthria Cranial nerves: Funduscopy: not performed CN II: visual rogers intact CN III, IV, : extraocular movements intact, no nystagmus, pupils symmetric and reactive to light CN V: face sensation intact to PP CN VII: no facial asymmetry noted CN VIII: hearing intact bilaterally CN IX, X: palate rises symmetrically CN XI: trapezius/SCM 5/5 bilaterally CN XII: protrudes tongue symmetrically Sensory: intact to PP in all extremities; other modalities not tested due to aphasia Motor: bulk and tone intact. Fine motor movements intact bilaterally. No pronator drift. Strength 5/5 throughout including the deltoids, biceps, triceps, wrist extensors, hip flexors, knee flexors, knee extensors, ankle flexors, and ankle extensors. Reflexes: 2+/ brisk throughout; toes down going bilaterally; no clonus; neg Carpenter/Tromner Coordination: FTN and HTS intact bilaterally Gait: not tested Results Last Vital Signs Temp 99.1 F 06/19/21 16:06 Pulse 94 H 06/19/21 16:02 Resp 21 06/19/21 16:02 BP 151/67 H 06/19/21 16:02 Pulse Ox 97 06/19/21 16:02 Labs Result diagrams: 06/18/21 23:05 06/18/21 23:05 Labs: Laboratory Results - last 24 hr 06/18/21 06/18/21 06/18/21 23:05 23:05 23:05 WBC 9.10 RBC 4.55 Hgb 10.7 L Hct 36.3 MCV 79.8 L MCH 23.5 L MCHC 29.5 L RDW 16.1 H Plt Count 322 MPV 9.3 Immature Gran % 0.4 Neutrophils % 46.3 Lymphocytes % 40.7 Monocytes % 8.1 Eosinophils % 4.0 Basophils % 0.5 Nucleated RBC % 0 Absolute Neutrophils 4.21 Absolute Lymphocytes 3.70 H Absolute Monocytes 0.74 Absolute Eosinophils 0.36 Absolute Basophils 0.05 PT 9.6 INR 1.0 Sodium 139 Potassium 4.4 Chloride 101 Carbon Dioxide 25.9 Anion Gap 12.1 H BUN 30 H Creatinine 1.3 H Estimated GFR/1.73 m2 39.51 Glucose 199 H Hemoglobin A1c Calcium 9.1 Magnesium 1.8 Total Bilirubin 0.2 AST 20 ALT 16 Alkaline Phosphatase 87 Troponin I < 50 Total Protein 7.3 Albumin 3.8 Triglycerides Total Cholesterol LDL Cholesterol, Calc HDL Cholesterol Urine Color Urine Clarity Urine pH Ur Specific [place] Urine Protein Urine Ketones Urine Blood Urine Nitrite Urine Bilirubin Urine Urobilinogen Ur Leukocyte Esterase Urine RBC Urine WBC Ur Epithelial Cells Urine Crystals Urine Bacteria Urine Casts Urine Mucus Ur Culture Indicated? Urine Glucose Ethyl Alcohol 3.2 COVID-19 Source SARS-CoV-2 (PCR) 06/18/21 06/18/21 06/19/21 23:10 23:56 02:10 WBC RBC Hgb Hct MCV MCH MCHC RDW Plt Count MPV Immature Gran % Neutrophils % Lymphocytes % Monocytes % Eosinophils % Basophils % Nucleated RBC % Absolute Neutrophils Absolute Lymphocytes Absolute Monocytes Absolute Eosinophils Absolute Basophils PT INR Sodium Potassium Chloride Carbon Dioxide Anion Gap BUN Creatinine Estimated GFR/1.73 m2 Glucose Hemoglobin A1c Calcium Magnesium Total Bilirubin AST ALT Alkaline Phosphatase Troponin I < 50 Total Protein Albumin Triglycerides Total Cholesterol LDL Cholesterol, Calc HDL Cholesterol Urine Color Yellow Urine Clarity Clear Urine pH 5.5 Ur Specific [place] 1.025 Urine Protein Negative Urine Ketones Negative Urine Blood Negative Urine Nitrite Negative Urine Bilirubin Negative Urine Urobilinogen 0.2 Ur Leukocyte Esterase Negative Urine RBC Urine WBC Ur Epithelial Cells Urine Crystals Urine Bacteria Urine Casts Urine Mucus Ur Culture Indicated? Urine Glucose Negative Ethyl Alcohol COVID-19 Source Nasal/Nares SARS-CoV-2 (PCR) Negative 0206/19/21 06/19/21 09:16 09:16 15:50 WBC RBC Hgb Hct MCV MCH MCHC RDW Plt Count MPV Immature Gran % Neutrophils % Lymphocytes % Monocytes % Eosinophils % Basophils % Nucleated RBC % Absolute Neutrophils Absolute Lymphocytes Absolute Monocytes Absolute Eosinophils Absolute Basophils PT INR Sodium Potassium Chloride Carbon Dioxide Anion Gap BUN Creatinine Estimated GFR/1.73 m2 Glucose Hemoglobin A1c 7.9 H Calcium Magnesium Total Bilirubin AST ALT Alkaline Phosphatase Troponin I Total Protein Albumin Triglycerides 106 Total Cholesterol 184 LDL Cholesterol, Calc 103 H HDL Cholesterol 60 Urine Color Yellow Urine Clarity Clear Urine pH 7.0 Ur Specific [place] 1.020 Urine Protein Negative Urine Ketones Negative Urine Blood Negative Urine Nitrite Negative Urine Bilirubin Negative Urine Urobilinogen 0.2 Ur Leukocyte Esterase Trace H Urine RBC 0-2 Urine WBC 5-10 Ur Epithelial Cells Few Urine Crystals Negative Urine Bacteria Negative Urine Casts Negative Urine Mucus Negative Ur Culture Indicated? No Urine Glucose Negative Ethyl Alcohol COVID-19 Source SARS-CoV-2 (PCR)
--- NOTE | 2021-06-19 20:13 | PGE_ITS ---
Date of Service Date of service: 06/19/21 Time of Service: 20:13 Subjective Subjective Interval history since last seen: Preliminary EEG shows no evidence of seizure or status epilepticus. Full report tomorrow. Objective Last Vital Signs Temp 99.5 F 06/19/21 17:10 Pulse 94 H 06/19/21 19:40 Resp 24 06/19/21 19:40 BP 131/71 06/19/21 19:40 Pulse Ox 92 06/19/21 19:40 Laboratory Results - last 24 hr 06/18/21 06/18/21 06/18/21 23:05 23:05 23:05 WBC 9.10 RBC 4.55 Hgb 10.7 L Hct 36.3 MCV 79.8 L MCH 23.5 L MCHC 29.5 L RDW 16.1 H Plt Count 322 MPV 9.3 Immature Gran % 0.4 Neutrophils % 46.3 Lymphocytes % 40.7 Monocytes % 8.1 Eosinophils % 4.0 Basophils % 0.5 Nucleated RBC % 0 Absolute Neutrophils 4.21 Absolute Lymphocytes 3.70 H Absolute Monocytes 0.74 Absolute Eosinophils 0.36 Absolute Basophils 0.05 PT 9.6 INR 1.0 Sodium 139 Potassium 4.4 Chloride 101 Carbon Dioxide 25.9 Anion Gap 12.1 H BUN 30 H Creatinine 1.3 H Estimated GFR/1.73 m2 39.51 Glucose 199 H Hemoglobin A1c Calcium 9.1 Magnesium 1.8 Total Bilirubin 0.2 AST 20 ALT 16 Alkaline Phosphatase 87 Troponin I < 50 Total Protein 7.3 Albumin 3.8 Triglycerides Total Cholesterol LDL Cholesterol, Calc HDL Cholesterol Urine Color Urine Clarity Urine pH Ur Specific [place] Urine Protein Urine Ketones Urine Blood Urine Nitrite Urine Bilirubin Urine Urobilinogen Ur Leukocyte Esterase Urine RBC Urine WBC Ur Epithelial Cells Urine Crystals Urine Bacteria Urine Casts Urine Mucus Ur Culture Indicated? Urine Glucose Ethyl Alcohol 3.2 COVID-19 Source SARS-CoV-2 (PCR) 06/18/21 06/18/21 06/19/21 23:10 23:56 02:10 WBC RBC Hgb Hct MCV MCH MCHC RDW Plt Count MPV Immature Gran % Neutrophils % Lymphocytes % Monocytes % Eosinophils % Basophils % Nucleated RBC % Absolute Neutrophils Absolute Lymphocytes Absolute Monocytes Absolute Eosinophils Absolute Basophils PT INR Sodium Potassium Chloride Carbon Dioxide Anion Gap BUN Creatinine Estimated GFR/1.73 m2 Glucose Hemoglobin A1c Calcium Magnesium Total Bilirubin AST ALT Alkaline Phosphatase Troponin I < 50 Total Protein Albumin Triglycerides Total Cholesterol LDL Cholesterol, Calc HDL Cholesterol Urine Color Yellow Urine Clarity Clear Urine pH 5.5 Ur Specific [place] 1.025 Urine Protein Negative Urine Ketones Negative Urine Blood Negative Urine Nitrite Negative Urine Bilirubin Negative Urine Urobilinogen 0.2 Ur Leukocyte Esterase Negative Urine RBC Urine WBC Ur Epithelial Cells Urine Crystals Urine Bacteria Urine Casts Urine Mucus Ur Culture Indicated? Urine Glucose Negative Ethyl Alcohol COVID-19 Source Nasal/Nares SARS-CoV-2 (PCR) Negative 06/19/21 06/19/21 06/19/21 09:16 09:16 15:50 WBC RBC Hgb Hct MCV MCH MCHC RDW Plt Count MPV Immature Gran % Neutrophils % Lymphocytes % Monocytes % Eosinophils % Basophils % Nucleated RBC % Absolute Neutrophils Absolute Lymphocytes Absolute Monocytes Absolute Eosinophils Absolute Basophils PT INR Sodium Potassium Chloride Carbon Dioxide Anion Gap BUN Creatinine Estimated GFR/1.73 m2 Glucose Hemoglobin A1c 7.9 H Calcium Magnesium Total Bilirubin AST ALT Alkaline Phosphatase Troponin I Total Protein Albumin Triglycerides 106 Total Cholesterol 184 LDL Cholesterol, Calc 103 H HDL Cholesterol 60 Urine Color Yellow Urine Clarity Clear Urine pH 7.0 Ur Specific [place] 1.020 Urine Protein Negative Urine Ketones Negative Urine Blood Negative Urine Nitrite Negative Urine Bilirubin Negative Urine Urobilinogen 0.2 Ur Leukocyte Esterase Trace H Urine RBC 0-2 Urine WBC 5-10 Ur Epithelial Cells Few Urine Crystals Negative Urine Bacteria Negative Urine Casts Negative Urine Mucus Negative Ur Culture Indicated? No Urine Glucose Negative Ethyl Alcohol COVID-19 Source SARS-CoV-2 (PCR)
[2021-06-19] MEDS: Mirtazapine 15 MG TAB 7.5 MG PO (21:53)
[2021-06-19] MEDS: traZODone 100 MG TAB PO (21:53)
[2021-06-19] MEDS: Montelukast 10 MG TAB PO (21:54)
[2021-06-20] VITALS (9 sets, daily range): BP systolic 124–174; BP diastolic 69–96; PULSE 84–104; RESP 14–24; TEMP 35.5–37.5; O2SAT 94–97
--- NOTE | 2021-06-20 | DI.CT_ITS ---
Exam(s) CT CHEST/ABD/PEL W EXAM: CT CHEST/ABD/PEL W CLINICAL HISTORY: cancer screening TECHNIQUE: Imaging Protocol: Axial computed tomography images with coronal and sagittal reformatted images were created and reviewed CONTRAST MATERIAL: Intravenous: Omnipaque 350 Contrast volume:100 mL Oral: yes / no COMPARISON: CT CHEST WITH CONTRAST from 03/20/[address] CHEST/ABD/PEL W from 06/16/[address] CHEST PE CTA from 11/06/2020 FINDINGS: The examination is limited due to patient motion artifact. CHEST: Tracheobronchial tree: Patent where visualized. Pulmonary parenchyma: No consolidation or dominant measurable mass. Scarring in the left lingula. No noncalcified pulmonary nodules. Mild bronchiectasis and subpleural blebs. Visualized thyroid gland: Unremarkable. Mediastinum and Nancy: No dominant adenopathy or fluid collection. The esophagus is unremarkable. The re is a moderate hiatal hernia. Postsurgical changes are seen at the gastroesophageal junction. The re may be mild thickening versus postsurgical changes in the distal esophagus. Pleura: No effusion or pneumothorax. Heart: The heart is not dilated. The artery calcifications are present. No pericardial effusion. Pulmonary arteries: There is limited evaluation of the peripheral pulmonary arteries due to patient m otion artifact. No central pulmonary embolus is seen. Aorta: Thoracic aorta non-dilated. Atherosclerosis. Lymph nodes: Within normal limits. Soft tissues: Unremarkable. Bones:Within normal limits for the patient's age. No suspicious lytic or sclerotic lesions. ABDOMEN: Liver: Normal density. No measurable mass. Portal, Superior Mesenteric, and Splenic Veins: Unremarkable. Gallbladder and Biliary Tract: Cholelithiasis. No biliary ductal dilatation. Question of mild peric holecystic fluid. Pancreas: There is pancreatic atrophy. Multiple small cysts are seen along the pancreatic duct. The measure up to 6 mm in size. They are unchanged dating back to 06/16/2019. Spleen: Normal. Adrenals: Stable thickening of the adrenal limbs bilaterally. Kidneys: Normal size, contour and axis. Nephrolithiasis. No hydronephrosis. Bilateral simple renal cysts. No follow-up is recommended. Abdominal Aorta: Abdominal portion non-dilated. Atherosclerosis. Bowel: No obstruction or bowel wall thickening. No evidence of appendicitis. There is a large amount of stool throughout the colon. Peritoneal Cavity: No ascites, collection or mesenteric inflammatory response. No free air. Lymph Nodes: Within normal limits. Bones: Within normal limits for the patient's age. No suspicious lytic or sclerotic lesions. Soft Tissues: Unremarkable. PELVIS: Bladder: There is mild diffuse thickening of the wall of the urinary bladder. This may be due to und erdistention. No surrounding inflammatory changes are seen. Cystitis cannot be excluded. Reproductive Organs: Status post hysterectomy. Lymph Nodes: Within normal limits. Bones: Within normal limits. IMPRESSION: 1. Cholelithiasis. Mild pericholecystic edema. Cholecystitis cannot be excluded. Sonographic evalu ation should be considered. 2. Moderate pancreatic atrophy with multiple small cystic foci along the main pancreatic duct. These are unchanged dating back to 2020. Re-evaluation every 2 years for 10 years is recommended. (Lisa harkins, 2017). 3. Mild urinary bladder wall thickening. No surrounding inflammatory changes are seen. This may be due to underdistention. Cystitis cannot be excluded. Please correlate clinically. 4. No noncalcified pulmonary nodules or thoracic adenopathy. 5. Examination is limited by patient motion artifact. 6. No obvious central pulmonary embolus. No evidence of thoracic aortic dissection. 7. Postsurgical changes and a hiatal hernia at the gastroesophageal junction. Question of distal eso phageal wall thickening. This may represent esophagitis. Nonemergent evaluation should be considere d. RADIATION DOSE DELIVERED: 1,203.61mGy.cm Total DLP DATA REPOSITORY: All CT scans at this facility are submitted to the National Radiology Data Registry (NRDR) Dose Index Registry (DIR) with the [employer] (A[employer]). RADIATION OPTIMIZATION: All CT scans at this facility use at least one of these dose optimization te chniques: automated exposure control; mA and/or kV adjustment per patient size (includes targeted exa ms where dose is matched to clinical indication); or iterative reconstruction.
--- NOTE | 2021-06-20 | DI.MRI_ITS ---
Exam(s) MR BRAIN W EXAM: MR BRAIN W CLINICAL HISTORY: aphasia,. TECHNIQUE: Multiplanar multisequence MRI of the brain was performed. T1 weighted postcontrast axial and coronal images were obtained. CONTRAST MATERIAL: IV Contrast: 6 ML of Dotarem contrast administered. COMPARISON: MR MR BRAIN WO from 06/19/2021 MR MR ANGIO BRAIN WO from 06/19/2021 FINDINGS: VENTRICLES AND EXTRA AXIAL SPACES: Normal in size and morphology for the patient's age. CEREBRAL PARENCHYMA: No enhancing masses are appreciated. The area superior to the corpus callosum o n the noncontrast examination is from 06/19/2021 shows no enhancement following contrast administratio n. MIDLINE SHIFT: None. BRAINSTEM/CEREBELLUM: Normal. CALVARIUM: Normal. ENHANCEMENT: No suspicious enhancement identified. VISUALIZED PARANASAL SINUSES/MASTOIDS: There is a mucous retention cyst or polyp in the left maxillar y sinus. OTHER FINDINGS: None. IMPRESSION: No enhancing intracranial lesions. DATA REPOSITORY:
[2021-06-20] MEDS: Aspirin E.C. 81 MG TABEC PO (08:07)
[2021-06-20] MEDS: metFORMIN 500 MG TAB PO (08:07)
[2021-06-20] MEDS: Tolterodine 2 MG CAPCR PO (08:07)
--- NOTE | 2021-06-20 09:13 | PDOC.EEG ---
Neurology EEG EEG: [facility] Department of Neurology INPATIENT EEG REPORT Date of Recordin06/19/21 at 18:20:01 to 06/20/21 at 07:58:16 Interpreting Physician: Dr. Helena Elena Reason for study: Tee is a 81 year-old woman admitted with expressive aphasia, concerning for subclinical seizures. Current Medications: Current Medications Aspirin (Aspirin E.C. 81 Mg Tabec) 81 mg PO DAILY [facility] Last Admin: 06/20/21 08:07 Dose: 81 mg Glipizide (Glipizide Cr 10 Mg Tabcr) 10 mg PO DAILY [facility] Last Admin: 06/20/21 08:07 Dose: 10 mg Sodium Chloride (Saline 500ml Bag) 500 mls @ 0 mls/hr IV PRN PRN IV Miscellaneous Supplies (Iv Access) 1 each IV DIRECTED [facility] Metformin HCl (Metformin 500 Mg Tab) 500 mg PO BID@0800,1700 [facility] Last Admin: 06/20/21 08:07 Dose: 500 mg Mirtazapine (Mirtazapine 15 Mg Tab) 7.5 mg PO HS [facility] Last Admin: 06/19/21 21:53 Dose: 7.5 mg Montelukast Sodium (Montelukast 10 Mg Tab) 10 mg PO HS [facility] Last Admin: 06/19/21 21:54 Dose: 10 mg Ondansetron HCl (Ondansetron 4 Mg/2 Ml Vial) 4 mg IVP Q6H PRN PRN Last Admin: 06/19/21 03:22 Dose: 4 mg Sodium Chloride (Normal Saline Flush 10 Ml Syr) 0 ml IVP PRN PRN Last Admin: 06/19/21 03:25 Dose: 20 ml Tolterodine Tartrate (Tolterodine 2 Mg Capcr) 2 mg PO DAILY [facility] Last Admin: 06/20/21 08:07 Dose: 2 mg Trazodone HCl (Trazodone 100 Mg Tab) 100 mg PO HS [facility] Last Admin: 06/19/21 21:53 Dose: 100 mg Venlafaxine HCl (Venlafaxine 75 Mg Capcr) 75 mg PO QPM [facility] Last Admin: 06/19/21 21:53 Dose: 75 mg Vit C/Vit E/Zinc/Copper/Lutein (Preservision Tablet) 1 tab PO DAILY [facility] Last Admin: 02/11/22 08:07 Dose: 1 tab METHODS: A 21 channel digitized electroencephalogram was performed in the [facility] Med/Surg Floor or ICU. The 10/20 international system of electrode placement was used and bipolar and referential electrode montages were recorded. In addition to EEG the patient was monitored for EKG and lateral/vertical eye movements. Activation procedures of photic stimulation and hyperventilation were performed if applicable. Video was used during activation procedures and during events where applicable. The duration of the recording was ~13.5hr. DESCRIPTION OF EEG: Waking background activity: During maximal wakefulness a 9-Hz posterior background rhythm was present which was well-modulated, symmetrical, reactive to eye opening, and of moderate voltage. Faster frequencies were present in the bilateral anterior head regions. There was a normal anterior-posterior voltage gradient. Drowsy and sleeping background activity: During drowsiness, there was attenuation of the posterior dominant background rhythm and vertex waves. Normal stage II and III sleep was present with symmetrical sleep spindles, K-complexes, and vertex waves with slowing of the background rhythm to delta/theta frequencies. REM sleep manifested by rapid lateral eye movements and faster background rhythms was recorded. Arousal was unremarkable. Interictal abnormalities: The left hemisphere was slower and of lower amplitude compared to the right hemisphere. This was slightly less prominent at the end of the recording. Ictal findings: No events captured. Activating Procedures: Photic stimulation and hyperventilation were not performed.. EKG: EKG revealed normal sinus rhythm. INTERPRETATION: This long-term EEG is abnormal due to left hemisphere slowing. PRIOR EEG: none CLINICAL CORRELATION: The finding above could represent an area of focal cerebral dysfunction. No definite epileptiform activity was present. Clinical correlation is advised. Helena Elena MD
--- NOTE | 2021-06-20 11:13 | PGE_ITS ---
Date of Service Date of service: 06/20/21 Time of Service: 11:14 Assessment and Plan Assessment and plan (1) Aphasia: Status: Acute Assessment and plan: stroke ruled out by MRI no evidence of seizure by EEG MRI brain with contrast with abnormal findings in bilateral subcortex of unknown etiology, further evaluation pending including LP (need to wait till jun 24 d/t receiving plavix on admission), labs and ct chest/abd/pelvis patient has no new symptoms and is improved, but symptoms to transiently come back. plan to continue to monitor until evaluation completed. (2) Anemia: Status: Chronic Assessment and plan: This appears to be a chronic anemia. stable with no evidence of bleeding will add iron studies. discussed with DR Ortega Subjective Subjective Patient reports: no new complaints, tolerating liquids well, tolerating a regular diet, voiding w/o difficulty and afebrile; denies shortness of breath Interval history since last seen: her symptoms have been waxing and waning but seem mostly improved. Exam Const General: comfortable, no acute distress and other (elderly female of stated age) Nutritional Appearance: average body habitus Orientation: alert and awake [facility] Head: normal to inspection, normocephalic and atraumatic Mouth: oral mucosae normal Eyes Pupils: PERRL EOM: EOM intact bilaterally Neck Neck: normal visual inspection Chest Chest: normal inspection of the chest Resp Effort & Inspection: normal respiratory effort Auscultation: clear to auscultation bilaterally Cardio Rate: regular rate Rhythm: regular rhythm GI Inspection: normal to inspection Palpation: soft Skin General skin exam: no rashes or lesions noted Neuro General: patient alert and patient awake Cranial Nerves: CN's II-XI intact bilaterally, PERRL, EOM intact bilaterally, facial strength normal, tongue midline, gag reflex normal and hearing normal Speech: expressive aphasia Motor: muscle tone normal throughout, strength 5/5 throughout and no tremors Extrem General: normal to inspection, full ROM and no pedal edema Objective Last Vital Signs Temp 37.0 C 06/20/21 07:24 Pulse 89 06/20/21 07:24 Resp 14 06/20/21 07:24 BP 162/96 H 06/20/21 07:24 Pulse Ox 94 06/20/21 07:24 Laboratory Results - last 24 hr 06/19/21 15:50 Urine Color Yellow Urine Clarity Clear Urine pH 7.0 Ur Specific [place] 1.020 Urine Protein Negative Urine Ketones Negative Urine Blood Negative Urine Nitrite Negative Urine Bilirubin Negative Urine Urobilinogen 0.2 Ur Leukocyte Esterase Trace H Urine RBC 0-2 Urine WBC 5-10 Ur Epithelial Cells Few Urine Crystals Negative Urine Bacteria Negative Urine Casts Negative Urine Mucus Negative Ur Culture Indicated? No Urine Glucose Negative
[2021-06-20] MEDS: Normal Saline Flush 10 ML SYR IVP ×2 (11:54→16:20)
[2021-06-20] MEDS: Gadoterate meglumine 20 ML VIAL 6 ML IVP (11:55)
--- NOTE | 2021-06-20 13:07 | W.SPSTP ---
Date of service: 06/20/21 Time of Service: 13:00 Subjective Tee was contacted in her room on med/surge unit this date for follow up/re-screen this date given RN report that her aphasic symptoms were largely resolved. Tee was agreeable to participate in brief assessment tasks this date, very pleasant, joking and smiling throughout. She does report she feels she is nearly back to her new normal, referring to the occasional slurred speech she has noticed every once in a while over the past 6 months. She is able to recall or describe the various imaging/diagnostic procedures she has undergone since admission, and appears very oriented to her medical situation as well with very good insight into her communication changes. It should be noted that she was not wearing her hearing aids today, due to leaving her apple solutions consultant at home. Hospitalist also reporting wide fluctuation in communication function yesterday. Objective/Assessment/Plan Objective Treatment Techniques & Outcomes: Informal Cognitive & Linguistic Screening Tasks & Observations: Mental status: Oriented to date, time, place, reason for admission - Independent Verbal Expression: Connected speech/spontanous conversation level: Largely grammatic. Occasionally would trail off without finishing a phrase, though not judged outside of typical adult/geriatric range of function, could possibly be interpreted as word-finding difficulty vs attention. Negligible ?paraphasic vs apraxic error in conversation or throughout screening tasks ([employer]). Presence of occasional subtle dysarthric vs apraxic errors (?very slight syllable or consonant elongation as well as slight imprecision, especially with sibilants), which the patient endorses is her main symptom that she recalls experiencing over the last several months prior to this hospitalization. Automatic Speech: Months: 04/20 - Independent Days of week: 11/13 - Independent Count to 20: 20/20 - Independent Repetition: 10/10 incl. sentences - Independent Picture Naming: +8/10 (trouble with visual recognition of smaller/more detailed images, suspect due to vision or visual processing errors vs confusion) - Independent Auditory Comprehension Yes/No Questions: Simple: 4/4 Independent Moderate: 4/4 Independent Complex: 4/4 Independent Conversation: Responses largely on topic, appropriate, and specific to indicate good understanding at conversational level. Occasional misinterpretation of clinician questions (1-2x) though suspect this was complicated by hearing loss as patient was without hearing aids this date. Short Term Goals: 1. Verbal Expression ? Lexical Retrieval: 1.1 Patient will demonstrate use of Semantic Feature Analysis [SFA] approach for linguistic targets at single word level in 80% of opportunities given min-mod cues and use of visual aid within 1-2 weeks IN PROGRESS - Not directly targeted this date. No overt word-finding errors noted this session. Patient does endorse 1x instance of word-finding (after the fact), but reports that she found an alternative word in that moment. Verbal Repetition: 1.5 Patient will demonstrate ability to accurately repeat linguistic content at simple word and phrase levels with min verbal/visual cues during functional tasks within 1-2 weeks. GOAL MET: See repetition task data above. 2. Auditory Comprehension ? 2.1? The patient will listen to single sentence with increased length/complexity and answer Y/N comprehension questions presented auditorily at 80% accuracy given moderate verbal / visual cues GOAL MET: See auditory comprehension task data above. 2.2 The patient will listen to 2 or more sentences and answer open ended comprehension questions presented auditorily at 60% accuracy given moderate verbal / visual cues NOT ADDRESSED, though similar/more complex level auditory comprehension was demonstrated throughout conversation for the duration of the session. 3. Self-Advocacy & Confidence/Motivation 3.1 Patient will identify 1-2 specific strategies for self-advocacy to utilize during communication breakdowns while on unit NOT ADDRESSED Patient/Caregiver/Staff Education: Provided education regarding the difference between word-finding, motor planning/programming, and speech execution. Patient is able to identify that she feels her errors are largely due to motor planning or execution. When I would get stuck, I knew exactly what word I wanted to say, I could say it to myself in my head but I couldn't get the word out. Coding Diagnoses Aphasia R47.01 Assessment and Plan Assessment and plan (1) Aphasia: Status: Acute Assessment and plan: Patient appears with largely resolving aphasia this date, though it should be noted that since admission, different providers have experienced widely fluctuating communication function. This session, patient demonstrating and endorsing mild residual symptoms such as slight speech imprecision (cont. to monitor for apraxic features, this date noting errors in conversational speech > automatic), and very occasional word-finding difficulty. Her expression & comprehension both appear significantly improved and verbal repetition skills appearing completely intact this date, in contrast to prior session when repetition was a relative weakness. Noting some errors this date possibly explained by vision or hearing status. RESOURCE ANALYST to continue to follow patient while on unit to monitor for changes in communication status, provide additional education & training related to self-advocacy and communication strategies. Total time spent: 40min [id number] Sp/Lang Treatment Mildred Dubose M.S., [facility]-RESOURCE ANALYST [phone]
--- NOTE | 2021-06-20 14:32 | CHAPLAIN ---
Kelly Couch was sitting up the chair. She told me that when she came to the hospital she couldn't speak. At first she thought she might have had a stroke, but that has been ruled out, Kelly Garcia said. She's waiting to hear what the diagnosis is, but is talking much better, she said. Kelly Garcia told me right away that she is Confucianist, so I'm all said there, she said. She lives in [facility] [place] [facility] [place] and has a neighbor who is a green plumber who helps here out. She asked me if I knew Ruben, her former neighbor across the street. Ruben was a hospice patient and was admitted here for a few days before he . Kelly Garcia talked about what a good person Ruben was and updated me on Ruben' partner, Robin, and what he's doing now. Kelly Garcia has been in touch with friends and family and seems to be comfortable being here while she waits to find out why she had trouble speaking yesterday.
[2021-06-20] MEDS: Polyethylene Glycol 3350 17 GM PACKET PO (14:41)
--- NOTE | 2021-06-20 14:54 | W.PM.PROGNOT ---
Date of Service Date of service: 06/20/21 Time of Service: 14:54 Subjective Subjective Interval history since last seen: This is a non-visit note. I did not see the patient today. She continues to be globally aphasic with some waxing/waning of symptoms. EEG overnight with apparent left hemisphere slowing but no seizure activity. MRI brain with contrast performed with several scattered small areas of contrast enhancement in the bilateral subcortex - non-specific. She does not appear/act infectious. Discussed case with Dr. Bryson at [facility] to get his perspective as well. Still not clear what is going on or etiology. He notes she was seen in oncology in 2017 for recurrent breast mass tx with radiation. She declined chemotherapy. Was treated with hormonal tx for a short time but she was unable to tolerate this. Recommend further work-up: -CT C/A/P w/wo as concern for metastatic disease -Labs: CRP, ESR, TSH, DELMI, RF, GIANNA, BRIELLE virus -LP with large volume to accommodate cytology as well as CSF paraneoplastic panel (send out to [place]); would also get cell count, glucose, protein, IGG index and synthesis, oligoclonal bands, CSF GIANNA -B12 is pending Objective Last Vital Signs Temp 98.2 F 06/20/21 11:50 Pulse 84 06/20/21 11:50 Resp 16 06/20/21 11:50 BP 133/69 06/20/21 11:50 Pulse Ox 97 06/20/21 11:50 Laboratory Results - last 24 hr 06/19/21 15:50 Urine Color Yellow Urine Clarity Clear Urine pH 7.0 Ur Specific [place] 1.020 Urine Protein Negative Urine Ketones Negative Urine Blood Negative Urine Nitrite Negative Urine Bilirubin Negative Urine Urobilinogen 0.2 Ur Leukocyte Esterase Trace H Urine RBC 0-2 Urine WBC 5-10 Ur Epithelial Cells Few Urine Crystals Negative Urine Bacteria Negative Urine Casts Negative Urine Mucus Negative Ur Culture Indicated? No Urine Glucose Negative
[2021-06-20 15:53] LABS: Anion Gap 10.8 mmol/L (3-11); BUN 31 mg/dL (7-18); CO2 25.2 mmol/L (21.0-32.0); CREATININE 1.3 mg/dL (0.55-1.02); Calcium 9.1 mg/dL (8.5-10.1); Chloride 104 mmol/L (98-107); Estimated GFR 39.51 (mL/min/1.73m2); Glucose 124 mg/dL (74-106); Sodium 140 mmol/L (136-145)
[2021-06-20] MEDS: LORazepam 2 MG/ML VIAL 0.5 MG IVP (16:20)
--- NOTE | 2021-06-20 16:37 | PDOC.CMPRO ---
- If Service Date Differs Date of service: 06/20/21 Time of Service: 16:37 Care Management Progress Note S/O: Tee will remain at [facility] through the weekend, for a planned LP on Wednesday. CM met with Geraldine Oliveira NP and MICHAEL Quevedo when Geraldine explained the current treatment plan to rule out recurrent, or possibly metastasized cancer. She will continue to have a work up and CM will continue to follow. A: 81 year old female admitted to [facility] 06/18/21 for aphasia. P: Anticipate Tee will discharge home when ready per MD. She continues to be evaluated for additional needs prior to discharge, anticipate she will transport home with her close friend and neighbor. CM continues to follow.
[2021-06-20] MEDS: Omnipaque 350 MG/ML 100 ML BTL IJ (16:59)
--- NOTE | 2021-06-20 18:21 | DI.VRAD_ITS ---
PROCEDURE INFORMATION: Exam: CT Chest With Contrast; Diagnostic Exam date and time: 06/20/2021 4:40 PM Age: 81 years old Clinical indication: Screening exam; Other screening; Patient HX: Cancer screening TECHNIQUE: Imaging protocol: Diagnostic computed tomography of the chest with contrast. 3D rendering (Not supervised by radiologist): MIP and/or 3D reconstructed images were created by the technologist. Total images: 3109 COMPARISON: CT CHEST PE CTA 11/06/2020 3:39 PM FINDINGS: Thyroid: 5 mm low-density nodule in the right thyroid lobe which does not require further evaluation based on current consensus criteria. Lungs: Mild chronic central bronchiectasis bilaterally unchanged. No infiltrates or edema. Patchy fibrosis or atelectasis in the lung bases. No pulmonary mass lesions are identified. Chronic 2.6 cm juxtapleural blebs in the anteromedial left upper lobe unchanged. 4 mm granulomatous calcification in the posterolateral left lower lobe. Pleural spaces: No pleural effusions. No pneumothorax. Heart: Heart size normal. Moderate coronary artery calcification. Pulmonary arteries: The pulmonary arteries demonstrate no gross abnormality. Aorta: The aorta demonstrates moderate ectasia/tortuosity and mild calcific atherosclerosis. No mediastinal hematoma. Lymph nodes: No supraclavicular or axillary adenopathy. No mediastinal or hilar adenopathy. Diaphragm: Moderate-sized hiatal hernia with surgical clips around the GE junction. Question mild wall thickening in the mid and distal esophageal segments which may indicate esophagitis, consider nonemergent esophagram or endoscopic assessment as clinically indicated. Bones/joints: No acute osseous abnormalities are identified. Osteopenia. Moderate thoracic spondylosis. Soft tissues: Soft tissues of the thoracic wall demonstrate no acute abnormality. Other findings: Exam sensitivity limited by gross respiratory motion. IMPRESSION: 1. No definite acute process. 2. Motion artifact mildly limits exam sensitivity. 3. Moderate-sized hiatal hernia with surgical clips around the GE junction. Question mild esophageal wall thickening in the mid and distal segments which may indicate esophagitis, consider nonemergent esophagram or endoscopic assessment as clinically indicated. 4. Moderate coronary artery calcification. 5. Additional nonemergent findings detailed above. PROCEDURE INFORMATION: Exam: CT Abdomen And Pelvis With Contrast Exam date and time: 06/20/2021 4:40 PM Age: 81 years old Clinical indication: Screening exam; Other screening; Patient HX: Cancer screening TECHNIQUE: Imaging protocol: Computed tomography of the abdomen and pelvis with contrast. 3D rendering (Not supervised by radiologist): MIP and/or 3D reconstructed images were created by the technologist. COMPARISON: CT CHEST PE CTA 11/06/2020 3:39 PM FINDINGS: Diaphragm: Moderate-sized hiatal hernia with surgical clips around the GE junction again noted, correlate with operative history. The stomach is largely contracted, limiting its assessment. Liver: Normal contour. No mass lesions. No intrahepatic biliary ductal dilatation. Gallbladder and bile ducts: There is mild pericholecystic edema without definite gallbladder wall thickening. There are several small stones in the gallbladder lumen near the neck measuring up to 4 mm. Correlate clinically for cholecystitis. Consider sonographic assessment. Nondilated bile ducts. Pancreas: Moderate pancreatic atrophy. There are multiple small cystic foci along the main pancreatic duct in the pancreatic body measuring between 3 mm and 6 mm in size. These may represent incidental side-branch ectasia is but are nonspecific. They are unchanged back to 06/16/2019.Reimaging every 2 years for 10 years is recommended. (Reference: Sylvia, 2017). Comparison to prior CT abdomen and pelvis from 02/15/2011 is recommended if able as this could satisfy this requirement if unchanged. The exam was requested and an addendum will be placed if made available. Spleen: Splenic calcifications noted. No acute splenic abnormalities. Adrenal glands: Mild chronic nodular thickening of the adrenal glands bilaterally is unchanged, favoring nodular hyperplasia or small adenomas, with no discrete lesions requiring further assessment. Kidneys and ureters: No acute abnormalities. No hydronephrosis or hydroureter. 4 mm nonobstructive right renal stone. 2 mm nonobstructive left renal stone. No ureteral stones.There are bilateral renal cortical lesions demonstrating low density values and circumscribed margins favoring simple renal cysts. No further imaging evaluation is required. Stomach and bowel: The small bowel is nondilated with no gross abnormality. There is a moderate amount of stool distributed throughout the colon suggesting constipation. Mild diverticulosis involving the distal colon without evidence of acute diverticulitis. Appendix: The appendix is not identified. No secondary signs of appendicitis. Intraperitoneal space: No free fluid or air. Vasculature: Moderate atherosclerotic aortoiliac calcification without aneurysm. Lymph nodes: No adenopathy. Urinary bladder: The urinary bladder is partially contracted, likely accounting for the mildly thickened appearance of the wall, with no perivesicular stranding. Correlate with UA to exclude cystitis. Reproductive: Prior hysterectomy. Bones/joints: No acute osseous abnormalities. Osteopenia. Moderate disc degenerative changes L5-S1. Soft tissues: Unremarkable. IMPRESSION: 1. Multiple gallstones in the gallbladder lumen near the neck, with mild pericholecystic edema. Correlate clinically for cholecystitis. Consider sonographic assessment as clinically indicated. Nondilated common bile duct. 2. Moderate-sized hiatal hernia. 3. Moderate pancreatic atrophy with numerous small simple appearing cystic foci along the main pancreatic duct in the pancreatic body. These are nonspecific, possibly side branch ectasia , and unchanged back to 06/16/2019. Comparison to prior postcontrast CT from 2010 is recommended to confirm long-term stability, exam requested and an addendum will be placed if made available. If unavailable, then see above for follow-up recommendations. 4. Nonobstructive renal stones. No hydronephrosis. 5. Moderate colonic stool suggesting constipation.Mild diverticulosis involving the distal colon without evidence of acute diverticulitis. 6. Mild bladder wall thickening, nonspecific. Correlate with UA for evidence of cystitis. 7. Additional nonemergent findings detailed above. REFERENCES: Sylvia AJ, et al. Management of Incidental Pancreatic Cysts: A White Paper of the ACR Incidental Findings Committee. J Am Hemal Radiol. 2017;14(7):911-923. Dictated and Authenticated by: Zaki Kiser MD. Ordering:DOMO Chandler MD
--- NOTE | 2021-06-20 19:16 | NUR.NOTE ---
Nursing Note: Patient's LP has been postponed until Wednesday because of the loading of Plavix. Tray is on med surg and is stored with a patient sticker attached by the [employer] equipment
[2021-06-20 21:09] LABS: ESR 2 mm/hr (0-30)
[2021-06-20 21:15] LABS: Iron 31 ug/dL (50-170); Total Iron Binding Capacity 406 ug/dL (250-450); Transferrin Sat 8 % (15-50)
[2021-06-20 21:20] LABS: C-Reactive Protein 0.15 mg/dL (0.0-0.3); TSH (W/Ref FT4) 0.63 uIU/mL (0.36-3.74)
[2021-06-20 21:31] LABS: Folate > 20.0 ng/mL (8.6-20.0)
[2021-06-20] MEDS: Mirtazapine 15 MG TAB 7.5 MG PO (21:35)
[2021-06-20] MEDS: traZODone 100 MG TAB PO (21:35)
[2021-06-20] MEDS: Montelukast 10 MG TAB PO (21:35)
[2021-06-20 21:40] LABS: Ferritin 13 ng/mL (8-252); Vitamin B12 267 pg/mL (193-986)
[2021-06-21] VITALS (10 sets, daily range): BP systolic 131–158; BP diastolic 72–85; PULSE 83–107; RESP 17–24; TEMP 36.3–37; O2SAT 94–98
[2021-06-21] MEDS: Aspirin E.C. 81 MG TABEC PO (08:28)
[2021-06-21] MEDS: Tolterodine 2 MG CAPCR PO (08:28)
[2021-06-21] MEDS: Polyethylene Glycol 3350 17 GM PACKET PO (08:28)
--- NOTE | 2021-06-21 13:55 | W.PM.PROGNOT ---
Date of Service Date of service: 06/21/21 Time of Service: 16:53 Assessment and Plan Assessment and plan (1) Aphasia: Status: Acute Assessment and plan: stroke ruled out by MRI no evidence of seizure by EEG MRI brain with contrast with abnormal findings in bilateral subcortex of unknown etiology, further evaluation pending including LP (need to wait till jun 24 d/t receiving plavix on admission), labs and ct chest/abd/pelvis patient has no new symptoms and is improved, but symptoms to transiently come back. plan to continue to monitor until evaluation completed. (2) Anemia: Status: Chronic Assessment and plan: This appears to be a chronic anemia. stable with no evidence of bleeding will add iron studies. discussed with DR Fritz Subjective Subjective Patient reports: no new complaints, tolerating liquids well, tolerating a regular diet, voiding w/o difficulty and afebrile; denies shortness of breath Exam Const General: comfortable, no acute distress and other (elderly female of stated age) Nutritional Appearance: average body habitus Orientation: alert and awake [facility] Head: normal to inspection, normocephalic and atraumatic Mouth: oral mucosae normal Eyes Pupils: PERRL EOM: EOM intact bilaterally Neck Neck: normal visual inspection Chest Chest: normal inspection of the chest Resp Effort & Inspection: normal respiratory effort Auscultation: clear to auscultation bilaterally Cardio Rate: regular rate Rhythm: regular rhythm GI Inspection: normal to inspection Palpation: soft Skin General skin exam: no rashes or lesions noted Neuro General: patient alert and patient awake Cranial Nerves: CN's II-XI intact bilaterally, PERRL, EOM intact bilaterally, facial strength normal, tongue midline, gag reflex normal, hearing normal and other (now following commands) Speech: expressive aphasia and receptive aphasia Motor: muscle tone normal throughout, strength 5/5 throughout and no tremors Extrem General: normal to inspection, full ROM and no pedal edema Objective Last Vital Signs Temp 36.7 C 06/21/21 11:26 Pulse 89 06/21/21 11:26 Resp 18 06/21/21 11:26 BP 136/72 06/21/21 11:26 Pulse Ox 94 06/21/21 11:26 Laboratory Results - last 24 hr 06/20/21 06/20/21 06/20/21 14:54 14:54 14:55 ESR Sodium Potassium Chloride Carbon Dioxide Anion Gap BUN Creatinine Estimated GFR/1.73 m2 Glucose Calcium Iron TIBC Transferrin % Sat Ferritin C-Reactive Protein Albumin Cancelled Vitamin B12 Folate TSH CSF Albumin Cancelled CSF IgG Cancelled Cancelled CSF IgG/Albumin Cancelled CSF IgG Index Cancelled Ser Oligoclonal Bands CSF Oligoclonal Bands Oligoclonal Band Interp CSF Paraneoplas Syn Int CSF Anti-Neuronal Typ 1 CSF Anti-Neuronal Typ 2 CSF Anti-Neuronal Typ 3 CSF AGNA-1 Purkinje Cyto Ab Trace CSF Purkinje Cyto Ab 1 CSF Purkinje Cyto Ab 2 CSF Amphiphysin Ab CSF CRMP-5 IgG Ab CSF Angiotensin Conv Enz Cancelled CSF BRIELLE Virus DNA (PCR) IgG Cancelled IgG Synthesis Rate Cancelled Rheumatoid Factor Cancelled Paraneoplas Reflex Add 06/20/21 06/20/21 06/20/21 15:01 15:32 16:00 ESR Sodium 140 Potassium 4.0 Chloride 104 Carbon Dioxide 25.2 Anion Gap 10.8 BUN 31 H Creatinine 1.3 H Estimated GFR/1.73 m2 39.51 Glucose 124 H D Calcium 9.1 Iron 31 L TIBC 406 Transferrin % Sat 8 L Ferritin C-Reactive Protein Albumin Vitamin B12 Folate TSH CSF Albumin CSF IgG CSF IgG/Albumin CSF IgG Index Ser Oligoclonal Bands Cancelled CSF Oligoclonal Bands Cancelled Oligoclonal Band Interp Cancelled CSF Paraneoplas Syn Int CSF Anti-Neuronal Typ 1 CSF Anti-Neuronal Typ 2 CSF Anti-Neuronal Typ 3 CSF AGNA-1 Purkinje Cyto Ab Trace CSF Purkinje Cyto Ab 1 CSF Purkinje Cyto Ab 2 CSF Amphiphysin Ab CSF CRMP-5 IgG Ab CSF Angiotensin Conv Enz CSF BRIELLE Virus DNA (PCR) IgG IgG Synthesis Rate Rheumatoid Factor Paraneoplas Reflex Add 06/20/21 06/20/21 06/20/21 16:00 16:00 16:00 ESR Sodium Potassium Chloride Carbon Dioxide Anion Gap BUN Creatinine Estimated GFR/1.73 m2 Glucose Calcium Iron TIBC Transferrin % Sat Ferritin 13 C-Reactive Protein 0.15 Albumin Vitamin B12 267 Folate > 20.0 H TSH 0.63 CSF Albumin CSF IgG CSF IgG/Albumin CSF IgG Index Ser Oligoclonal Bands CSF Oligoclonal Bands Oligoclonal Band Interp CSF Paraneoplas Syn Int CSF Anti-Neuronal Typ 1 CSF Anti-Neuronal Typ 2 CSF Anti-Neuronal Typ 3 CSF AGNA-1 Purkinje Cyto Ab Trace CSF Purkinje Cyto Ab 1 CSF Purkinje Cyto Ab 2 CSF Amphiphysin Ab CSF CRMP-5 IgG Ab CSF Angiotensin Conv Enz CSF BRIELLE Virus DNA (PCR) IgG IgG Synthesis Rate Rheumatoid Factor Paraneoplas Reflex Add 06/20/21 06/20/21 16:00 Unknown ESR 2 Sodium Potassium Chloride Carbon Dioxide Anion Gap BUN Creatinine Estimated GFR/1.73 m2 Glucose Calcium Iron TIBC Transferrin % Sat Ferritin C-Reactive Protein Albumin Vitamin B12 Folate TSH CSF Albumin CSF IgG CSF IgG/Albumin CSF IgG Index Ser Oligoclonal Bands CSF Oligoclonal Bands Oligoclonal Band Interp CSF Paraneoplas Syn Int Cancelled CSF Anti-Neuronal Typ 1 Cancelled CSF Anti-Neuronal Typ 2 Cancelled CSF Anti-Neuronal Typ 3 Cancelled CSF AGNA-1 Cancelled Purkinje Cyto Ab Trace Cancelled CSF Purkinje Cyto Ab 1 Cancelled CSF Purkinje Cyto Ab 2 Cancelled CSF Amphiphysin Ab Cancelled CSF CRMP-5 IgG Ab Cancelled CSF Angiotensin Conv Enz CSF BRIELLE Virus DNA (PCR) Cancelled IgG IgG Synthesis Rate Rheumatoid Factor Paraneoplas Reflex Add Cancelled
[2021-06-21] MEDS: Cyanocobalamin 1000 MCG/ML VIAL IM/SC (14:37)
[2021-06-21 21:53] LABS: Rheumatoid Factor <8.6 IU/mL (<12.0)
[2021-06-21] MEDS: Mirtazapine 15 MG TAB 7.5 MG PO (22:07)
[2021-06-21] MEDS: Docusate Sodium 100 MG CAP PO (22:07)
[2021-06-21] MEDS: Ascorbic Acid 500 MG TAB 250 MG PO (22:07)
[2021-06-21] MEDS: Montelukast 10 MG TAB PO (22:08)
[2021-06-21] MEDS: Ferrous Sulfate 325 MG TAB PO (22:08)
[2021-06-21] MEDS: traZODone 100 MG TAB PO (22:08)
[2021-06-22] VITALS (8 sets, daily range): BP systolic 129–153; BP diastolic 70–81; PULSE 78–101; RESP 16–18; TEMP 36.4–36.9; O2SAT 94–98
[2021-06-22] MEDS: Polyethylene Glycol 3350 17 GM PACKET PO ×2 (08:11→19:25)
[2021-06-22] MEDS: Ferrous Sulfate 325 MG TAB PO ×2 (08:11→19:25)
[2021-06-22] MEDS: Cyanocobalamin 500 MCG TAB 1000 MCG PO (08:12)
[2021-06-22] MEDS: Tolterodine 2 MG CAPCR PO (08:12)
[2021-06-22] MEDS: Docusate Sodium 100 MG CAP PO ×2 (08:12→19:25)
[2021-06-22] MEDS: Aspirin E.C. 81 MG TABEC PO (08:12)
[2021-06-22] MEDS: Ascorbic Acid 500 MG TAB 250 MG PO ×2 (08:13→19:25)
[2021-06-22] MEDS: Normal Saline Flush 10 ML SYR IVP ×2 (08:13→19:24)
--- NOTE | 2021-06-22 08:58 | W.PM.PROGNOT ---
Date of Service Date of service: 06/22/21 Time of Service: 08:58 Assessment and Plan Assessment and plan (1) Aphasia: Status: Acute Assessment and plan: stroke ruled out by MRI no evidence of seizure by EEG MRI brain with contrast with abnormal findings in bilateral subcortex of unknown etiology, further evaluation pending including LP (need to wait till jun 15 d/t receiving plavix on admission), labs and ct chest/abd/pelvis patient has no new symptoms and is improved, but symptoms to transiently come back. plan to continue to monitor until evaluation completed. (2) Anemia: Status: Chronic Assessment and plan: This appears to be a chronic anemia. stable with no evidence of bleeding will add iron studies. (3) Constipation: Status: Acute Assessment and plan: bowel management and monitor (4) Diabetes mellitus: Status: Chronic Assessment and plan: A1C was 7.9 on jun 19, 2021 continue blood sugars ac/hs diabetic diet home medication Qualifiers: Diabetes mellitus complication status: without complication Diabetes mellitus type: type 2 (5) Discharge planning issues: Status: Acute Assessment and plan: anticipate a discharge to home when stable discussed with Dr Fritz Subjective Subjective Patient reports: no new complaints, tolerating liquids well, tolerating a regular diet, voiding w/o difficulty and afebrile; denies shortness of breath Exam Const General: comfortable, no acute distress and other (elderly female of stated age) Nutritional Appearance: average body habitus Orientation: alert and awake [facility] Head: normal to inspection, normocephalic and atraumatic Mouth: oral mucosae normal Eyes Pupils: PERRL EOM: EOM intact bilaterally Neck Neck: normal visual inspection Chest Chest: normal inspection of the chest Resp Effort & Inspection: normal respiratory effort Auscultation: clear to auscultation bilaterally Cardio Rate: regular rate Rhythm: regular rhythm GI Inspection: normal to inspection Palpation: soft Skin General skin exam: no rashes or lesions noted Neuro General: patient alert and patient awake Cranial Nerves: CN's II-XI intact bilaterally, PERRL, EOM intact bilaterally, facial strength normal, tongue midline, gag reflex normal, hearing normal and other (now following commands) Speech: expressive aphasia and receptive aphasia Motor: muscle tone normal throughout, strength 5/5 throughout and no tremors Extrem General: normal to inspection, full ROM and no pedal edema Objective Last Vital Signs Temp 36.6 C 06/22/21 07:55 Pulse 80 06/22/21 07:55 Resp 16 06/22/21 07:55 BP 153/79 H 06/22/21 07:55 Pulse Ox 95 06/22/21 07:55 Laboratory Results - last 24 hr 06/21/21 07:10 Rheumatoid Factor <8.6
[2021-06-22] MEDS: Calcium Carbonate *TUMS* 500 MG CHEW 1000 MG PO (20:17)
[2021-06-22] MEDS: Omeprazole 20 MG CAPCR PO (20:17)
[2021-06-22] MEDS: traZODone 100 MG TAB PO (22:17)
[2021-06-22] MEDS: Mirtazapine 15 MG TAB 7.5 MG PO (22:18)
[2021-06-22] MEDS: Montelukast 10 MG TAB PO (22:18)
--- NOTE | 2021-06-23 | DI.CT_ITS ---
Exam(s) CT BRAIN CTA EXAM: CT BRAIN CTA CLINICAL HISTORY: venous thrombosis evaluation, carverous. TECHNIQUE: Imaging Protocol: Both noninfused and contrast infused CT scans of the brain were perform ed. IV Contrast Dose =75 cc Axial computed tomography images with coronal and sagittal reformatted images were created and review ed COMPARISON: MR MR BRAIN W from 06/20/[address] CHEST/ABD/PEL W from 06/20/2021 FINDINGS: ANTERIOR CIRCULATION: Both internal carotid arteries are patent in the skull base and cavernous sinu ses. Supraclinoid aspects are patent. Both A1 segments are patent as are the anterior cerebral arteri es. No evidence of aneurysm at the level of the anterior communicating artery. Both middle cerebral a rteries are patent. POSTERIOR CIRCULATION: Basilar artery is patent and formed at the skull base by both vertebral arteri es. Distally basilar artery gives off patent bilateral superior cerebellar arteries and above this le kendy terminates as patent bilateral posterior cerebral arteries. There is no aneurysm at tip of the ba silar artery. BRAIN: There is no evidence of intracranial hemorrhage, mass effect, or shift of midline structures. No extr a-axial fluid collections. Ventricles are not enlarged or shifted and there is no blood within the ve ntricular system nor within the basal cisterns. There are no ring enhancing lesions in the brain. No abnormal meningeal enhancement. IMPRESSION: No new significant intracranial findings. No significant enhancing intracranial findings. There was less than optimal opacification of the cavernous sinuses (as per request). However, the cav ernous sinuses retain normal concave external borders. RADIATION DOSE DELIVERED: 1,888.09mGy.cm Total DLP DATA REPOSITORY: All CT scans at this facility are submitted to the National Radiology Data Registry (NRDR) Dose Index Registry (DIR) with the [employer] (ACR). RADIATION OPTIMIZATION: All CT scans at this facility use at least one of these dose optimization te chniques: automated exposure control; mA and/or kV adjustment per patient size (includes targeted exa ms where dose is matched to clinical indication); or iterative reconstruction.
[2021-06-23 03:35] VITALS: BP 129/70; PULSE 100; RESP 16; TEMP 36.7; O2SAT 96
[2021-06-23 07:45] VITALS: BP 154/78; PULSE 87; RESP 16; TEMP 36.5; O2SAT 96
--- NOTE | 2021-06-23 08:22 | PCNE_ITS ---
Date of service: 06/23/21 Time of Service: 08:23 History of Present Illness History of Present Illness Chief Complaint: aphagia Narrative: SHe came to [facility] with symptoms of aphagia. Per staff this waxes and wanes. She has gone thru an extensive work up and is waiting until for her LP which had to be delayed due to plavix. She says she feels fine. 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 She was on coumadin for many years but stopped this about 10 years ago. She had many questions about the LP and its dangers. Consults Consult date: 06/23/21 Requesting physician: Stefanie Fritz Assessment and Plan Assessment and plan (1) Aphasia: Status: Acute Assessment and plan: Luckily her aphasia has resolved. She is doing quite well. She is anxious to get home. She is concerned about continued living alone. She knows it is pro bably time to move into an assisted living. She has her nephew who lives in [place], she may try to move closer to him. It would be hard because she has many friends around here. We discussed the LP and the purpose of it Advanced directives?in the past we have discussed this and she is a DNR/DNI Addendum I did speak with Dr. Elena. Her best guess is that Kelly Couch had a seizure which has resolved. All other tests were normal. Kelly Couch and Dr. Elena will discuss seizure medication, but from past conversations, Kelly Couch may choose to not go on seizure medication since it is not a definite cause of her aphasia (2) Diabetes mellitus: Status: Chronic Qualifiers: Diabetes mellitus type: type 2 Diabetes mellitus complication status: without complication Review of Systems Narrative: Today she feels fine: no fever, sob, cp, zhang. No aphagia Constitutional Comments: She is resting comfortably in bed. Cooperative. SHe remembers many recent and past events. 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) Stroke (Chronic) Anemia (Chronic) Angular cheilitis (Acute) Difficulty sleeping (Acute) Chronic eczematoid otitis externa of both ears (Acute) Frequent UTI (Acute) External ear conductive hearing loss (Acute) Balance disorder (Acute) Pelvic floor dysfunction (Acute) Conductive hearing loss (Acute 04/27/13) Has b/l OTE HAs on unit Depressive disorder (Acute) Eczema (Acute 12/14/13) Gout (Acute) 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) wears b/l OTE HAs Urinary incontinence (Chronic 09/27/17) Seborrheic keratoses (Chronic 01/14/17) Osteopenia (Chronic) 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; 07/13 DCIS [facility] [place] [place]-INVASIVE;PER NEEDLE BX 07/02/16 Impaired renal function disorder (Chronic 01/01/14) Hyperlipidemia (Chronic) Hiatal hernia (Chronic) GERD (gastroesophageal reflux disease) (Chronic) EGD; globus two-three times at stretching of the esophagus PARAESOPHAGEAL (QUESTION GASTRIC VOLVULUS) Frequent UTI (Chronic 09/02/17) Essential hypertension (Chronic 03/17/13) Eczema (Chronic 09/21/13) Diabetes mellitus (Chronic 09/05/12) Vaginal atrophy (Chronic) 0 ESTROGEN DUE TO BREAST CANCER Asthma (Chronic) Arthritis (Chronic) left foot DJD Medical History Abnormal mammography 07/02/08 Mammogram 06/15/08-Rt breast Catergory 4. Steretactic biopsy performed 06/28/08. Recurrent;12/18/09-left breast U/S-benign; simple cyst Acute gastric ulcer with obstruction Acute gastric ulcer with obstruction Acute UTI Anemia Anemia Back pain Bilateral impacted cerumen (05/16/15) Chronic otitis externa (12/14/13) Depressive disorder Fatigue (01/14/16) Gout Hematoma rectus Hematoma History of esophageal dilatation History of esophageal dilatation Hypoxia s/p thoracentesis for left hydropneumothorax with resolution of hypoxia. 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 POWERS 06/2014; RIGHT; DR. POWERS Fracture, Open Treatment (~1992) anupama; fractured leg (tib/fib- left leg) H/O surgical procedure 05/10/03 TDT incontinence surgery. toenail removal-2000 History of open reduction and internal fixation (ORIF) procedure 05/10/92 anupama; fractured leg History of open reduction and internal fixation (ORIF) procedure History of repair of hiatal hernia History of repair of hiatal hernia History of thoracentesis left hydropneumothorax w/resolution of hypoxia History of thoracentesis Hysterectomy Hx of PCOS Praful Fundoplication 2010 laproscopic RADIATION 2016-[facility] 1992-[facility] REPAIR OF HH S/P breast biopsy 05/10/08 sterostactic biopsy of right breast; [facility] S/P breast lumpectomy 05/10/90 [facility] S/P cataract extraction 07/26/14; Dr. Powers; left S/P laparoscopic hysterectomy HX of PCOS Sinus infection (~1998) 5 veins blocked in the base of brain related to a serious sinus infection Status post breast lumpectomy Status post cataract extraction Status post laparoscopic hysterectomy Status post Praful fundoplication Status post Praful fundoplication TDT INCONTINECE SURGERY (~2003) Thoracentesis left hydropneumothorax with resolution of hypoxia TOENAIL REMOVAL (~2000) Family History Mother , age 63 Essential hypertension Depression Breast cancer Father , age 77 COPD (chronic obstructive pulmonary disease) Diabetes Brother Diabetes Essential hypertension Maternal Grandfather TB (tuberculosis) Lung disease Heart disease Paternal Grandfather , age 76 Essential hypertension Maternal Grandmother , age 48 Diabetes Essential hypertension Heart disease Paternal Grandmother , CHILD at age 38. Alcohol abuse Heart disease Hypertension MATERNAL FAMILY HX Depression Heart disease PATERNAL FAMILY HX Essential hypertension Social History Smoking/Tobacco Use Status: Never Smoking risk assessment performed?: Yes Alcohol Intake: current Alcohol Intake frequency: holidays/special occasions only Alcohol type: wine Drug use: Never Substance use type: does not use Caregiver/Support person: No Household members: none Housing: house Communication Needs: Hard of Hearing and Corrective Lenses Do you need help understanding health information?: Never Pets and animals: No Sexually active: No Do you think of yourself as: straight/heterosexual Current gender identity: female What is your relationship status?: How often do you talk on the phone with friends or family?: three or more times per week How often do you get together with friends or relatives?: three or more times per week How often do you attend anabaptism or methodist services?: 4 or more times per year Do you belong to any clubs or organized social groups?: yes Panel score (0-1 are the most socially isolated patients): 3 What type of physical activity do you participate in: walking and other Details: PT 2x/week Duration: 15-30 minutes/day Frequency: 3-4 times per week Lizett/Uatsdin: Christianity Special lizett needs: No Seatbelt use: always Helmet use: No Drive intox or ride w/intox lead driver: No Do you feel safe at home: Yes Do you feel safe in your relationship?: Yes Results Last Vital Signs Temp 97.7 F 06/23/21 07:45 Pulse 87 06/23/21 07:45 Resp 16 06/23/21 07:45 BP 154/78 H 06/23/21 07:45 Pulse Ox 96 06/23/21 07:45 MRI, EEG, ECHO reviewed Labs Result diagrams: 06/24/21 06:30 06/24/21 06:30
[2021-06-23] MEDS: Ferrous Sulfate 325 MG TAB PO ×2 (08:56→20:35)
[2021-06-23] MEDS: Ascorbic Acid 500 MG TAB 250 MG PO ×2 (08:56→20:34)
[2021-06-23] MEDS: Cyanocobalamin 500 MCG TAB 1000 MCG PO (08:58)
[2021-06-23] MEDS: Omeprazole 20 MG CAPCR PO (08:58)
[2021-06-23] MEDS: Aspirin E.C. 81 MG TABEC PO (08:58)
[2021-06-23] MEDS: Docusate Sodium 100 MG CAP PO ×2 (08:58→20:34)
[2021-06-23] MEDS: Tolterodine 2 MG CAPCR PO (08:58)
[2021-06-23] MEDS: Normal Saline Flush 10 ML SYR IVP ×4 (08:59→13:44)
[2021-06-23] MEDS: Polyethylene Glycol 3350 17 GM PACKET PO ×2 (09:00→20:34)
--- NOTE | 2021-06-23 09:05 | W.PM.PROGNOT ---
Date of Service Date of service: 06/23/21 Time of Service: 09:05 Assessment and Plan Assessment and plan (1) Aphasia: Status: Acute Assessment and plan: Tee is a 81 year-old, right-handed woman admitted with global aphasia, that has overall improved but continues to wax and wane. Extensive work-up thus far negative. Awaiting LP tomorrow - on hold due to Plavix given earlier in the admission. She notes similar symptoms at time of remote CVT, but no obvious cause of recrudescence. -Will plan to repeat EEG +/- repeat overnight imaging again to look for potential seizure activity vs improvement in L hemisphere slowing. Consider trial of LEV? -MRV? Will consult with rads first to see if needed or if cerebral veins seen adequately on previous imaging. -Continue B12 1000mcg daily. -Agree with palliative for DPOA/code status. -Continue ST. Subjective Subjective Interval history since last seen: Over the weekend, aphasia has waxed and waned though perhaps trending towards better??? Unclear. Work-up: CTH (06/18/21): No acute findings. -MRI brain (06/19/21): no acute findings.? Moderate chronic vascular changes with old lacunes bilaterally in the centrum semiovale.? The lacune on the right was associated with remote microhemorrhage.? -MRA head/neck (06/19/21): unremarkable. -A1c 7.9 -LDL 103 -Hgb 10.7, WBC 9.10, Cr 1.3, UA ok, ETOH 3.2 -EEG (06/19/21-06/20/21 x 13 hours): left hemisphere slowing. -MRI brain w/ (06/20/21): several scattered small areas of contrast enhancement in the bilateral subcortex - non-specific.? -CT C/A/P w/wo (06/20/21): cholelithiasis. Moderate pancreatic atrophy with multiple small cystic foci along the main pancreatic duct.? These are unchanged dating back to 2019.?Mild urinary bladder wall thickening.??Postsurgical changes and a hiatal hernia at the gastroesophageal junction.? Question of distal esophageal wall thickening.? This may represent esophagitis. -B12 267 -Folate >20 -ESR 2 -CRP 0.15 -TSH 0.63 -RF neg Pending Tests: -LP with large volume to accommodate cytology as well as CSF paraneoplastic panel (send out to [facility]); would also get cell count, glucose, protein, IGG index and synthesis, oligoclonal bands, CSF GIANNA -Labs: DELMI, GIANNA, BRIELLE virus, serum paraneoplastic Exam Narrative Exam Narrative: Physical Exam: Constitutional: Patient of apparent stated age, well nourished, well developed, no acute distress Neuro: MS/Language/Speech: Alert, oriented, clear language (fluency and comprehension) - able to follow 3 step command across the midline, no dysarthria Objective Last Vital Signs Temp 97.7 F 06/23/21 07:45 Pulse 87 06/23/21 07:45 Resp 16 06/23/21 07:45 BP 154/78 H 06/23/21 07:45 Pulse Ox 96 06/23/21 07:45
--- NOTE | 2021-06-23 09:19 | W.SPSTP ---
Date of service: 06/23/21 Time of Service: 09:19 Objective/Assessment/Plan Assessment [employer] Communication / Non-Treatment Note [employer] MANAGER spoke with M/S staff re: current patient status, ie patient able to communicate effectively, express wants/needs without issue while on unit, likely at typical baseline per mosat recent patient interview; RN reports patient does demonstrate intermittent difficulties with word finding although nothing new, no difficulties/changes re: tolerance of oral diet. Patient has LP planned for Wednesday, continued testing planned to identify cause of symptoms. Plan: Please re-consult if significant status change, otherwise [employer] MANAGER to follow while on unit, return PRN to monitor for changes in communication status, provide additional education & training related to self-advocacy and communication strategies. Current Recommendations: Instrumentation: N/A Diet Texture Modification(s): IDDSI Level(s) 7-Regular Solids, 0-Thin Liquids Medication Intake: Whole with 0-Thin Liquids RISK MANAGEMENT: Oral hygiene BID/2x per day using friction with toothbrush on all oral structures as tolerated HOB upright as tolerated; upright for all PO intake. Encourage physical mobility as tolerated. Level of Assistance/Supervision: Independent; PRN - intermittent staff check-ins for solid PO intake during mealtimes, primarily given hx esophageal dysphagia with solids Strategies/Adaptations/Assistive Equipment: Reduce auditory and/or visual distractions when eating, Provide verbal and/or visual cues to use recommended strategies, Small sips and bites when eating, Slow rate of intake, Alternate intake of liquids and solids Posture/Positioning Needs: Maintain upright position at least 30 minutes after meals, Avoid meals/snacks 2-3 hours prior to reclining/sleeping, Sleep with head of bed elevated to reduce likelihood of nocturnal reflux Kylah Oseguera MA CCC-[employer] Speech-Language Pathologist MS#[phone] Coding
--- NOTE | 2021-06-23 09:28 | CMPROGNOTE_ITS ---
- If Service Date Differs Date of service: 06/23/21 Time of Service: 09:29 Care Management Progress Note S/O: Tee remains at [facility], scheduled for tomorrow. She continues to be followed by neurologist Dr. Gonzales, as well. She was out of her room when CM attempted to meet with her, prayer blanket delivered for [employer]old[employer]'s Day. CM will continue to follow. A: 81 year old female admitted to [facility] 06/18/21 for aphasia. P: Anticipate Tee will discharge home when ready per MD. She continues to be evaluated for additional needs prior to discharge, anticipate she will transport home with her close friend and neighbor. CM continues to follow.
[2021-06-23 10:28] LABS: Bilirubin Negative (Negative); Blood Small (Negative); Clarity Cloudy (Clear); Glucose 250 mg/dL (Negative); Ketones Negative (Negative); Leukocyte Esterase Moderate (Negative); Nitrite Positive (Negative); Specific Gravity 1.025 (1.005-1.025); Urobilinogen 0.2 EU/dL (Up TO 0.2); pH 6.5 (5-8)
[2021-06-23 10:35] LABS: Bacteria Moderate HPF (Negative); C & S Indicated? Yes; Casts 5-10 Hyaline LPF (Negative); Crystals Negative HPF (Negative); Epithelial Cells Few HPF (Negative); Mucus Negative (Negative); WBC >50 HPF (0-5)
[2021-06-23] MEDS: LORazepam 2 MG/ML VIAL 1 MG IVP (10:58)
[2021-06-23 11:17] VITALS: BP 157/82; PULSE 84; RESP 16; TEMP 36.3; O2SAT 94
[2021-06-23] MEDS: Omnipaque 350 MG/ML 100 ML BTL 75 ML IJ (12:19)
--- NOTE | 2021-06-23 13:26 | PGE_ITS ---
Date of Service Date of service: 06/23/21 Time of Service: 13:26 Assessment and Plan Assessment and plan (1) Aphasia: Status: Acute Assessment and plan: stroke ruled out by MRI no evidence of seizure by EEG, plan to repeat tonight MRI brain with contrast with abnormal findings in bilateral subcortex of unknown etiology, further evaluation pending including LP (need to wait till jun 15 d/t receiving plavix on admission), labs and ct chest/abd/pelvis patient has no new symptoms and is improved plan to continue to monitor until evaluation completed. LP for tomorrow CT venogram today with no evidence of cavernous venous thrombosis. (2) Anemia: Status: Chronic Assessment and plan: This appears to be a chronic anemia. stable with no evidence of bleeding will add iron studies. (3) Constipation: Status: Acute Assessment and plan: bowel management and monitor (4) Diabetes mellitus: Status: Chronic Assessment and plan: A1C was 7.9 on jun 19, 2021 continue blood sugars ac/hs diabetic diet home medication Qualifiers: Diabetes mellitus complication status: without complication Diabetes mellitus type: type 2 (5) Discharge planning issues: Status: Acute Assessment and plan: anticipate a discharge to home tomorrow with home health services. discussed with Dr Fritz Subjective Subjective Patient reports: no new complaints, feels better, tolerating liquids well, tolerating a regular diet and afebrile; denies shortness of breath Interval history since last seen: aphasia markedly improved today Exam Const General: comfortable, no acute distress and other (elderly female of stated age) Nutritional Appearance: average body habitus Orientation: alert and awake [facility] Head: normal to inspection, normocephalic and atraumatic Mouth: oral mucosae normal Eyes Pupils: PERRL EOM: EOM intact bilaterally Neck Neck: normal visual inspection Chest Chest: normal inspection of the chest Resp Effort & Inspection: normal respiratory effort Auscultation: clear to auscultation bilaterally Cardio Rate: regular rate Rhythm: regular rhythm GI Inspection: normal to inspection Palpation: soft Skin General skin exam: no rashes or lesions noted Neuro General: patient alert and patient awake Cranial Nerves: CN's II-XI intact bilaterally, PERRL, EOM intact bilaterally, facial strength normal, tongue midline, gag reflex normal and hearing normal Motor: muscle tone normal throughout, strength 5/5 throughout and no tremors Extrem General: normal to inspection, full ROM and no pedal edema Objective Last Vital Signs Temp 36.3 C L 06/23/21 11:17 Pulse 84 06/23/21 11:17 Resp 16 06/23/21 11:17 BP 157/82 H 06/23/21 11:17 Pulse Ox 94 06/23/21 11:17 Laboratory Results - last 24 hr 06/23/21 09:51 Urine Color Yellow Urine Clarity Cloudy Urine pH 6.5 Ur Specific Van 1.025 Urine Protein 100 H Urine Ketones Negative Urine Blood Small H Urine Nitrite Positive H Urine Bilirubin Negative Urine Urobilinogen 0.2 Ur Leukocyte Esterase Moderate H Urine RBC 5-10 H Urine WBC >50 H Ur Epithelial Cells Few Urine Crystals Negative Urine Bacteria Moderate Urine Casts 5-10 Hyaline Urine Mucus Negative Ur Culture Indicated? Yes Urine Glucose 250 H
[2021-06-23] MEDS: Normal Saline 1,000 ML 100 ML IV (13:43)
[2021-06-23 14:55] LABS: ANA Interpretation Negative (Negative)
[2021-06-23 15:15] VITALS: BP 159/84; PULSE 82; RESP 16; TEMP 36; O2SAT 96
[2021-06-23 20:30] VITALS: BP 142/88; PULSE 88; RESP 20; TEMP 37.2; O2SAT 95
[2021-06-23] MEDS: Mirtazapine 15 MG TAB 7.5 MG PO (22:17)
[2021-06-23] MEDS: Montelukast 10 MG TAB PO (22:17)
[2021-06-24] VITALS: BP 172/94; PULSE 80; RESP 20; TEMP 36.7; O2SAT 95
[2021-06-24 04:53] VITALS: BP 188/88; PULSE 95; RESP 18; TEMP 36.2; O2SAT 95
[2021-06-24 07:04] LABS: Abs Immature Grans 0.03 10^3/uL (0.0-0.06); Absolute Basophil Count 0.02 10^3/uL (0.0-0.2); Absolute Eosinophil Count 0.27 10^3/uL (0.0-0.7); Absolute Lymphocyte Count 2.77 10^3/uL (1.2-3.4); Absolute Monocyte Count 0.58 10^3/uL (0.1-0.8); Absolute Neutrophil Count 4.55 10^3/uL (1.2-6.7); Basophils % 0.2; Eosinophils % 3.3; HCT 33.5 % (36.0-46.0); HGB 10.3 g/dL (11.2-15.7); Immature Grans % 0.4; Lymphocytes % 33.7; MCHC 30.7 % (32.0-36.0); MCV 77.9 fL (80-95); MPV 9.2 fL (8.0-11.0); Monocytes % 7.1; Neutrophils % 55.3; Nucleated RBC 0 %; Platelet Count 296 10^3/uL (130-400); RDW 16.7 % (11.7-14.6); WBC 8.22 10^3/uL (4.4-10.8)
[2021-06-24 07:24] LABS: Anion Gap 8.4 mmol/L (3-11); BUN 18 mg/dL (7-18); CO2 26.6 mmol/L (21.0-32.0); CREATININE 1.1 mg/dL (0.55-1.02); Calcium 8.6 mg/dL (8.5-10.1); Chloride 108 mmol/L (98-107); Estimated GFR 47.91 (mL/min/1.73m2); Glucose 112 mg/dL (74-106); Sodium 143 mmol/L (136-145)
[2021-06-24 07:35] VITALS: BP 161/69; PULSE 87; RESP 20; TEMP 36.8; O2SAT 96
--- NOTE | 2021-06-24 08:41 | PDOC.EEG_ITS ---
Neurology EEG EEG: [facility] Department of Neurology INPATIENT OVERNIGHT EEG REPORT Date of Recordin06/23/21 at 17:19:25 to 06/24/21 at 07:58:04 Interpreting Physician: Dr. Helena Elena Reason for study: Ms. Garcia is a 81 year-old woman admitted with global aphasia that has waxed and waned but slowly improved. Etiology remains unknown. Previous EEG significant for left hemisphere slowing. Current Medications: Current Medications Ascorbic Acid (Ascorbic Acid 500 Mg Tab) 250 mg PO BID [facility] Last Admin: 06/23/21 20:34 Dose: 250 mg Aspirin (Aspirin E.C. 81 Mg Tabec) 81 mg PO DAILY [facility] Last Admin: 06/23/21 08:58 Dose: 81 mg Bisacodyl (Bisacodyl 10 Mg Supp) 10 mg [place] DAILY PRN PRN Calcium Carbonate (Calcium Carbonate *Tums* 500 Mg Chew) 1,000 mg PO TID PRN PRN Last Admin: 06/22/21 20:17 Dose: 1,000 mg Cyanocobalamin (Cyanocobalamin 1000 Mcg/Ml Vial) 1,000 mcg IM/SC TODAY [facility] Last Admin: 06/21/21 14:37 Dose: 1,000 mcg Cyanocobalamin (Cyanocobalamin 500 Mcg Tab) 1,000 mcg PO DAILY [facility] Last Admin: 06/23/21 08:58 Dose: 1,000 mcg Docusate Sodium (Docusate Sodium 100 Mg Cap) 100 mg PO BID [facility] Last Admin: 06/23/21 20:34 Dose: 100 mg Ferrous Sulfate (Ferrous Sulfate 325 Mg Tab) 325 mg PO BID [facility] Last Admin: 06/23/21 20:35 Dose: 325 mg Glipizide (Glipizide Cr 10 Mg Tabcr) 10 mg PO DAILY [facility] Last Admin: 06/23/21 08:59 Dose: 10 mg Sodium Chloride (Saline 500ml Bag) 500 mls @ 0 mls/hr IV PRN PRN IV Miscellaneous Supplies (Iv Access) 1 each IV DIRECTED [facility] Magnesium Hydroxide (Milk Of Magnesia 30 Ml Cup) 30 ml PO DAILY PRN PRN Mirtazapine (Mirtazapine 15 Mg Tab) 7.5 mg PO HS [facility] Last Admin: 06/23/21 22:17 Dose: 7.5 mg Montelukast Sodium (Montelukast 10 Mg Tab) 10 mg PO HS [facility] Last Admin: 06/23/21 22:17 Dose: 10 mg Omeprazole (Omeprazole 20 Mg Capcr) 20 mg PO DAILY [facility] Last Admin: 06/23/21 08:58 Dose: 20 mg Ondansetron HCl (Ondansetron 4 Mg/2 Ml Vial) 4 mg IVP Q6H PRN PRN Last Admin: 06/19/21 03:22 Dose: 4 mg Polyethylene Glycol (Polyethylene Glycol 3350 17 Gm Packet) 17 gm PO BID [facility] Last Admin: 06/23/21 20:34 Dose: 17 gm Sodium Chloride (Normal Saline Flush 10 Ml Syr) 0 ml IVP PRN PRN Last Admin: 06/23/21 13:44 Dose: 10 ml Tolterodine Tartrate (Tolterodine 2 Mg Capcr) 2 mg PO DAILY [facility] Last Admin: 06/23/21 08:58 Dose: 2 mg Trazodone HCl (Trazodone 100 Mg Tab) 100 mg PO HS [facility] Last Admin: 06/23/21 22:15 Dose: Not Given Venlafaxine HCl (Venlafaxine 75 Mg Capcr) 75 mg PO QPM [facility] Last Admin: 06/23/21 20:34 Dose: 75 mg Vit C/Vit E/Zinc/Copper/Lutein (Preservision Tablet) 1 tab PO DAILY [facility] Last Admin: 06/23/21 08:59 Dose: 1 tab METHODS: A 21 channel digitized electroencephalogram was performed in the [facility] Med/Surg Floor or ICU. The 10/20 international system of electrode placement was used and bipolar and referential electrode montages were recorded. In addition to EEG the patient was monitored for EKG and lateral /vertical eye movements. Activation procedures of photic stimulation and hyperventilation were performed if applicable. Video was used during activation procedures and during events where applicable. The duration of the recording was ~14.5hours. DESCRIPTION OF EEG: Waking background activity: During maximal wakefulness a 9-Hz posterior background rhythm was present which was well-modulated, symmetrical, reactive to eye opening, and of moderate voltage. Faster frequencies were present in the bilateral anterior head regions. There was a normal anterior-posterior voltage gradient. Drowsy and sleeping background activity: During drowsiness, there was attenuation of the posterior dominant background rhythm and vertex waves. Normal stage II and III sleep was present with symmetrical sleep spindles, K- complexes, and vertex waves with slowing of the background rhythm to delta/theta frequencies. REM sleep manifested by rapid lateral eye movements and faster background rhythms was recorded. Arousal was unremarkable. Interictal abnormalities: none. Ictal findings: No events recorded. Activating Procedures: Photic stimulation was performed which produced no posterior driving response. Hyperventilation was not performed. EKG: EKG revealed normal sinus rhythm. INTERPRETATION: This long-term EEG is normal during the awake and sleep states as well as during photic stimulation. The previous left hemisphere slowing was not seen here. PRIOR EEG: -vEEG (06/19/21-06/20/21 x 13.5hr): left hemisphere slowing. CLINICAL CORRELATION: No focal regions of cerebral dysfunction or epileptiform activity was present. Epilepsy remains a clinical diagnosis and a normal EEG does not rule out epilepsy. Clinical correlation is advised. Helena Elena MD
--- NOTE | 2021-06-24 08:53 | PDOC.CMPRO ---
Care Management Progress Note S/O: Tee remains at [facility], LP scheduled for today. She continues to be followed by neurologist Dr. Gonzales, as well. CM will continue to follow. A: 81 year old female admitted to [facility] 06/18/21 for aphasia. P: Anticipate Tee will discharge home when ready per MD. She continues to be evaluated for additional needs prior to discharge, anticipate she will transport home with her close friend and neighbor. CM continues to follow.
[2021-06-24] MEDS: Docusate Sodium 100 MG CAP PO ×2 (09:11→19:23)
[2021-06-24] MEDS: Aspirin E.C. 81 MG TABEC PO (09:11)
[2021-06-24] MEDS: Ascorbic Acid 500 MG TAB 250 MG PO ×2 (09:12→19:23)
[2021-06-24] MEDS: Cyanocobalamin 500 MCG TAB 1000 MCG PO (09:12)
[2021-06-24] MEDS: Omeprazole 20 MG CAPCR PO (09:12)
[2021-06-24] MEDS: Ferrous Sulfate 325 MG TAB PO ×2 (09:12→19:23)
[2021-06-24] MEDS: Tolterodine 2 MG CAPCR PO (09:12)
[2021-06-24] MEDS: Polyethylene Glycol 3350 17 GM PACKET PO ×2 (09:13→19:22)
[2021-06-24] MEDS: Normal Saline Flush 10 ML SYR IVP ×2 (09:14→13:24)
[2021-06-24 10:38] LABS: Angiotensin Converting Enzyme 33 U/L (16 - 85)
[2021-06-24] MEDS: LORazepam 2 MG/ML VIAL 0.5 MG IVP (13:24)
--- NOTE | 2021-06-24 14:53 | W.ANESPROC ---
Lumbar Puncture Date Performed: 06/24/21 Procedure Time: 14:12 Requesting Provider: Geraldine Gaxiola Procedure Location: Med/Surg Standard Monitors Applied: None Used Patient Position: Sitting Timeout Performed: Yes Sedation Given (Indicate Dose Given): No Sedation given Patient Mental Status: Awake Sterility: Hand Hygiene, Surgical Cap, Surgical Mask, Sterile Gloves, Sterile Drape/Sheet, Eye Protection and Chlorhexidine Placement Site: L3-L4 Interspace Spinal Needle Type: [place] 22 Gauge Needle Length: 3.5 Inch Lumbar Puncture Procedure: Site Prepped, Sterile Drape Placed, 1% Lidocaine to skin and subcutaneous tissue with 25G needle, Spinal Needle Placed, Negative Heme, Positive CSF Flow, CSF Specimen placed into Tubes in Sequential Order and Specimen Labeled, Sent to Lab Ultrasound: Not Used Paresthesia: None Number of Previous Attempts by Other Providers: 0 Number of Attempts (See previous attempts in note section): 2 Procedure Tolerated: No Complications Procedure Outcome: Successful Performed By: Janet Rg
[2021-06-24 15:03] VITALS: BP 164/89; PULSE 82; RESP 18; TEMP 36.5; O2SAT 94
[2021-06-24 15:30] LABS: Clarity Clear; Tube # 4
[2021-06-24 15:31] LABS: RBC 1 /mm3 (0-5); WBC 1 /uL (0-5); Xanthochromia Absent
[2021-06-24 15:49] LABS: Glucose (CSF) 109 mg/dL (40-70); Total Protein (CSF) 64 mg/dL (15-45)
--- NOTE | 2021-06-24 15:50 | W.PM.PROGNOT ---
Date of Service Date of service: 06/24/21 Time of Service: 15:50 Assessment and Plan Assessment and plan (1) Aphasia: Status: Acute Assessment and plan: Tee is a 81 year-old, right-handed woman admitted with global aphasia, that was initially waxing/waning, but has now seemed to have resolved. Extensive work-up thus far negative with only positive finding including L hemisphere slowing on EEG while aphasic that has resolved along with symptoms. Still awaiting LP and some serum results. She notes similar symptoms at time of remote CVT, but no obvious cause of recrudescence. Thus, I still don't know cause of her symptoms. Based on work-up thus far, would consider seizure highest on the differential. We discussed starting a seizure medication prophylactically. She was not interested. I discussed this with Dr. Palacio who is her PCP and knows her well who notes this is line with her wants. Continue vitamin B12 1000mcg daily for now, though she and PCP may discuss utility/futility of this. She should follow-up in the neurology clinic in 3-4 weeks. Please call with any further questions/concerns. Subjective Subjective Interval history since last seen: Speech remains improved. Overnight EEG normal - no left hemisphere slowing. LP performed this afternoon. Initial CSF results with 1 WBC and 1 RBC. She did well. Work-up: CTH (06/18/21): No acute findings. -MRI brain (06/19/21): no acute findings.? Moderate chronic vascular changes with old lacunes bilaterally in the centrum semiovale.? The lacune on the right was associated with remote microhemorrhage.? -MRA head/neck (06/19/21): unremarkable. -A1c 7.9 -LDL 103 -Hgb 10.7, WBC 9.10, Cr 1.3, UA ok, ETOH 3.2 -vEEG (06/19/21-06/20/21 x 13 hours): left hemisphere slowing. -MRI brain w/ (06/20/21): several scattered small areas of contrast enhancement in the bilateral subcortex - non-specific.? -CT C/A/P w/wo (06/20/21): cholelithiasis. Moderate pancreatic atrophy with multiple small cystic foci along the main pancreatic duct.? These are unchanged dating back to 2019.?Mild urinary bladder wall thickening.??Postsurgical changes and a hiatal hernia at the gastroesophageal junction.? Question of distal esophageal wall thickening.? This may represent esophagitis. -B12 267 -Folate >20 -ESR 2 -CRP 0.15 -TSH 0.63 -RF neg -DELMI neg -GIANNA 33 -vEEG (06/23/21-06/24/21 x 14 hours): normal. Pending Tests: -LP with large volume to accommodate cytology as well as CSF paraneoplastic panel (send out to [place]); would also get cell count, glucose, protein, IGG index and synthesis, oligoclonal bands, CSF GIANNA -Labs: BRIELLE virus, serum paraneoplastic Exam Narrative Exam Narrative: Physical Exam: Constitutional: Patient of apparent stated age, well nourished, well developed, no acute distress Neuro: MS/Language/Speech: Alert, oriented, clear language (fluency and comprehension), no dysarthria Objective Last Vital Signs Temp 97.7 F 06/24/21 15:03 Pulse 82 06/24/21 15:03 Resp 18 06/24/21 15:03 BP 164/89 H 06/24/21 15:03 Pulse Ox 94 06/24/21 15:03 Laboratory Results - last 24 hr 06/20/21 06/24/21 06/24/21 16:00 06:30 06:30 WBC 8.22 RBC 4.30 Hgb 10.3 L Hct 33.5 L MCV 77.9 L MCH 24.0 L MCHC 30.7 L RDW 16.7 H Plt Count 296 MPV 9.2 Immature Gran % 0.4 Neutrophils % 55.3 Lymphocytes % 33.7 Monocytes % 7.1 Eosinophils % 3.3 Basophils % 0.2 Nucleated RBC % 0 Absolute Neutrophils 4.55 Absolute Lymphocytes 2.77 Absolute Monocytes 0.58 Absolute Eosinophils 0.27 Absolute Basophils 0.02 Xanthochromia Sodium 143 Potassium 4.0 Chloride 108 H Carbon Dioxide 26.6 Anion Gap 8.4 BUN 18 Creatinine 1.1 H Estimated GFR/1.73 m2 47.91 Glucose 112 H Calcium 8.6 Angiotensin Convert Enz 33 CSF Tube Number CSF Color CSF Clarity CSF WBC CSF RBC CSF Glucose CSF Total Protein 06/24/21 06/24/21 14:12 14:12 WBC RBC Hgb Hct MCV MCH MCHC RDW Plt Count MPV Immature Gran % Neutrophils % Lymphocytes % Monocytes % Eosinophils % Basophils % Nucleated RBC % Absolute Neutrophils Absolute Lymphocytes Absolute Monocytes Absolute Eosinophils Absolute Basophils Xanthochromia Absent Sodium Potassium Chloride Carbon Dioxide Anion Gap BUN Creatinine Estimated GFR/1.73 m2 Glucose Calcium Angiotensin Convert Enz CSF Tube Number 4 CSF Color Colorless CSF Clarity Clear CSF WBC 1 CSF RBC 1 CSF Glucose 109 H CSF Total Protein 64 H
--- NOTE | 2021-06-24 15:54 | PGE_ITS ---
Date of Service Date of service: 06/24/21 Time of Service: 15:54 Assessment and Plan Assessment and plan (1) Aphasia: Status: Acute Assessment and plan: stroke ruled out by MRI no evidence of seizure by EEG and repeat EEG last night MRI brain with contrast with abnormal findings in bilateral subcortex of unknown etiology, further evaluation pending including LP which was performed today and routine evaluation of CSF unremarkable, sent outs pending and will need review outpatient patient has no new symptoms and is improved CT venogram with no evidence of cavernous venous thrombosis. (2) Anemia: Status: Chronic Assessment and plan: This appears to be a chronic anemia. stable with no evidence of bleeding on iron and b12 supplementation (3) Constipation: Status: Acute Assessment and plan: bowel management and monitor (4) Diabetes mellitus: Status: Chronic Assessment and plan: A1C was 7.9 on jun 19, 2021 continue blood sugars ac/hs diabetic diet home medication Qualifiers: Diabetes mellitus type: type 2 Diabetes mellitus complication status: without complication (5) Discharge planning issues: Status: Acute Assessment and plan: anticipate a discharge to home tomorrow with home health services. discussed with Dr Fritz Subjective Subjective Patient reports: no new complaints, feels better, tolerating liquids well, tolerating a regular diet and afebrile; denies shortness of breath Exam Const General: comfortable, no acute distress and other (elderly female of stated age) Nutritional Appearance: average body habitus Orientation: alert and awake [facility] Head: normal to inspection, normocephalic and atraumatic Mouth: oral mucosae normal Eyes Pupils: PERRL EOM: EOM intact bilaterally Neck Neck: normal visual inspection Chest Chest: normal inspection of the chest Resp Effort & Inspection: normal respiratory effort Auscultation: clear to auscultation bilaterally Cardio Rate: regular rate Rhythm: regular rhythm GI Inspection: normal to inspection Palpation: soft Skin General skin exam: no rashes or lesions noted Neuro General: patient alert and patient awake Cranial Nerves: CN's II-XI intact bilaterally, PERRL, EOM intact bilaterally, facial strength normal, tongue midline, gag reflex normal, hearing normal and other (now following commands) Speech: expressive aphasia and receptive aphasia Motor: muscle tone normal throughout, strength 5/5 throughout, no pronator drift and no tremors Extrem General: normal to inspection, full ROM and no pedal edema Objective Last Vital Signs Temp 36.5 C 06/24/21 15:03 Pulse 82 06/24/21 15:03 Resp 18 06/24/21 15:03 BP 164/89 H 06/24/21 15:03 Pulse Ox 94 06/24/21 15:03 Laboratory Results - last 24 hr 06/20/21 06/24/21 06/24/21 16:00 06:30 06:30 WBC 8.22 RBC 4.30 Hgb 10.3 L Hct 33.5 L MCV 77.9 L MCH 24.0 L MCHC 30.7 L RDW 16.7 H Plt Count 296 MPV 9.2 Immature Gran % 0.4 Neutrophils % 55.3 Lymphocytes % 33.7 Monocytes % 7.1 Eosinophils % 3.3 Basophils % 0.2 Nucleated RBC % 0 Absolute Neutrophils 4.55 Absolute Lymphocytes 2.77 Absolute Monocytes 0.58 Absolute Eosinophils 0.27 Absolute Basophils 0.02 Xanthochromia Sodium 143 Potassium 4.0 Chloride 108 H Carbon Dioxide 26.6 Anion Gap 8.4 BUN 18 Creatinine 1.1 H Estimated GFR/1.73 m2 47.91 Glucose 112 H Calcium 8.6 Angiotensin Convert Enz 33 CSF Tube Number CSF Color CSF Clarity CSF WBC CSF RBC CSF Glucose CSF Total Protein 06/24/21 06/24/21 14:12 14:12 WBC RBC Hgb Hct MCV MCH MCHC RDW Plt Count MPV Immature Gran % Neutrophils % Lymphocytes % Monocytes % Eosinophils % Basophils % Nucleated RBC % Absolute Neutrophils Absolute Lymphocytes Absolute Monocytes Absolute Eosinophils Absolute Basophils Xanthochromia Absent Sodium Potassium Chloride Carbon Dioxide Anion Gap BUN Creatinine Estimated GFR/1.73 m2 Glucose Calcium Angiotensin Convert Enz CSF Tube Number 4 CSF Color Colorless CSF Clarity Clear CSF WBC 1 CSF RBC 1 CSF Glucose 109 H CSF Total Protein 64 H
[2021-06-24 17:04] LABS: Lymphocytes CSF 70 % (40-80); Monocyte/Macrophage CSF 15 % (15-45); Neutrophils CSF 15 % (0-6)
[2021-06-24 19:51] VITALS: BP 151/71; PULSE 92; RESP 18; TEMP 36.7; O2SAT 97
[2021-06-24] MEDS: Mirtazapine 15 MG TAB 7.5 MG PO (22:04)
[2021-06-24] MEDS: Montelukast 10 MG TAB PO (22:04)
[2021-06-24] MEDS: traZODone 100 MG TAB PO (22:04)
[2021-06-24 22:05] VITALS: BP 153/99; PULSE 93; RESP 95; TEMP 37.4
[2021-06-25 03:35] VITALS: BP 150/70; PULSE 96; RESP 18; TEMP 36.4; O2SAT 97
[2021-06-25 08:21] VITALS: BP 148/91; PULSE 98; RESP 22; TEMP 36.8; O2SAT 98
--- NOTE | 2021-06-25 08:43 | CMPROGNOTE_ITS ---
- If Service Date Differs Date of service: 06/25/21 Time of Service: 08:43 Care Management Progress Note S/O: Tee remains at [facility], she had a LP yesterday. She continues to be followed by neurologist Dr. Gonzales, as well. CM will continue to follow. A: 81 year old female admitted to [facility] 06/18/21 for aphasia. P: Anticipate Tee will discharge home when ready per MD. She continues to be evaluated for additional needs prior to discharge, anticipate she will transport home with her close friend and neighbor. CM continues to follow.
[2021-06-25] MEDS: Cyanocobalamin 500 MCG TAB 1000 MCG PO (09:28)
[2021-06-25] MEDS: Omeprazole 20 MG CAPCR PO (09:29)
[2021-06-25] MEDS: Aspirin E.C. 81 MG TABEC PO (09:29)
[2021-06-25] MEDS: Tolterodine 2 MG CAPCR PO (09:29)
[2021-06-25] MEDS: Ferrous Sulfate 325 MG TAB PO (09:29)
[2021-06-25] MEDS: Docusate Sodium 100 MG CAP PO (09:29)
[2021-06-25] MEDS: Ascorbic Acid 500 MG TAB 250 MG PO (09:30)
[2021-06-25] MEDS: Cephalexin 500 MG CAP PO (09:30)
[2021-06-25] MEDS: Polyethylene Glycol 3350 17 GM PACKET PO (09:31)
--- NOTE | 2021-06-25 10:05 | DSE_ITS ---
Date of service: 06/25/21 Time of Service: 10:05 DS: Diagnosis Discharge Diagnosis (1) Aphasia: Status: Acute Discharge Plan Disposition Patient Disposition: HOME W/HOME HEALTH SERVICE Condition: Stable Discharge Details Reason For Visit: Aphasia Admit Date/Time: 06/19/21 10:33 Admit Provider: Zaki Inman Attending Provider: Zaki Inman Primary Care Provider: Patricia Palacio Hospital Course Hospital Course: This is a 81 year old female who lives independently who presented to the ED by EMS after she experienced difficulties with her speech for the entire day. Upon arrival she was experiencing receptive and expressive aphasia so history taking was difficult. On exam she no unilateral weakness or other findings. Lab and initial imaging unremarkable. She was given asa, plavix and statin and admitted for further imaging, evaluation and neurology consultation. She remained aphasic overnight. MRI the following day showed no evidence of acute CVA. She was seen by speech therapy and was showing signs of improvement. EEG obtained and showed no evidence of seizures. She continued to show signs of slowly improving yet symptoms worsen at times. She was then ordered MRI with contrast with was thought to have milliary enhancement. [place] [facility] recommendations for [place] which we needed to delay as she had received plavix, completed on wednesdayjun 24 with some studies still pending at discharge. Her history apparently includes a cavernous venous sinus which she states presented the same way with aphasia. Case was discussed with radiology here who recommended CT venogram to evaluate for cavernous venous sinus which there was no evidence of. She underwent a second EEG with no evidence of seizures. she was found to have ecoli UTI sensitive to cephalosporins, she is being discharged on 5 days of keflex. she received her first dose here with no adverse reaction or rash. she was also found to be vit b12 deficient and started on replacement she is at baseline and being discharged to home with home health services. discharge discussed with dr Fritz Home Meds and New Rx's Prescriptions: New cyanocobalamin (vitamin B-12) [Vitamin B-12] 500 mcg Tablet 1,000 mcg PO DAILY Qty: 60 0RF cephalexin 500 mg Capsule 500 mg PO BID Qty: 9 0RF Continued triamcinolone acetonide 0.1 % cream 1 applic topical BID Qty: 80 0RF Rx Instructions: apply to foot ferrous fumarate 456 mg (150 mg iron) tablet 456 mg PO DAILY Qty: 90 4RF PreserVision AREDS-2 [id number] iq-maoz-[id number]-mg capsule 1 tab PO DAILY 0RF cranberry 400 mg capsule 400 mg PO DAILY 0RF Rx Instructions: administer with a meal aspirin 81 MG tablet,delayed release (DR/EC) 1 tab PO DAILY 0RF Probiotic 10 billion cell capsule 1 cell PO DAILY PRN0RF (DME) Blood Glucose Test Strip 1 ea Miscellaneous DAILY Qty: 100 4RF Rx Instructions: FOR One Touch Delica METER. once daily testing. E11.9 (DME) lancets [OneTouch Delica Plus Lancet] 30 gauge misc See Rx Instructions .ROUTE .MEDSUPPLY Qty: 100 0RF Rx Instructions: As directed E11.9.. once day testing glipizide 10 mg tablet extended release 24hr 10 mg PO DAILY Qty: 90 4RF hydrochlorothiazide 12.5 mg tablet 12.5 mg PO DAILY Qty: 90 4RF metformin 1,000 mg tablet 1,000 mg PO BID Qty: 180 12RF Rx Instructions: While inpt 06/19/21: renally adjusted dose to 500mg BID given reduced GFR [Continuation of existing therapy: May continue at a reduced dose up to a maximum of 500 mg twice daily with close monitoring of kidney function (ADA [Ehsan 2011]; Jennifer 2014).] mirtazapine 7.5 mg tablet 7.5 mg PO QHS Qty: 90 4RF omeprazole 20 mg capsule,delayed release(DR/EC) 20 mg PO DAILY Qty: 90 12RF tolterodine 4 mg capsule,extended release 24hr 4 mg PO DAILY Qty: 30 0RF Rx Instructions: while inpt 06/19/21: renally adjusted dose to 2mg daily [CrCl 10 to 30 mL/ minute: 2 mg once daily] venlafaxine 75 mg capsule,extended release 24hr 75 mg PO QPM Qty: 90 7RF trazodone 100 mg Tablet 100 mg PO HS 0RF montelukast 10 mg tablet 10 mg PO QHS 0RF Discharge Instructions Instructions: Urinary Tract Infection in Women (DC), Aphasia (ROSE) Stand Alone Forms: Nursing Discharge Form Referrals: Patricia Palacio MD, [facility] [Primary Care Provider] - 07/03/21 11:40 am Helena Elena MD [ [facility] STAFF PHYSICIAN] - Activity:: Activity as Tolerated Equipment/Supplies:: No Equipment Needed Diet:: As Tolerated Discharge Orders Discharge Orders: Discharge Order (Routine); Ordered 06/25/21 Ordered By: Geraldine Gaxiola Discharge Data Discharge Date/Time-TO BE ENTERED AT DEPARTURE: 06/25/21 11:23 DS: Summary Time Spent with Patient providing and/or coordinating discharge services: Greater than 30 minutes Status at Discharge Functional status at discharge: independent ambulation Overall status at discharge: patient is back to baseline Mental Status: mental status grossly normal Speech and Movement: speech and movement normal Mood: congruent mood Affect: normal affect Exam Const General: comfortable, no acute distress and other (elderly female of stated age) Nutritional Appearance: average body habitus Orientation: alert and awake HENMT Head: normal to inspection, normocephalic and atraumatic Mouth: oral mucosae normal Eyes Pupils: PERRL EOM: EOM intact bilaterally Neck Neck: normal visual inspection Chest Chest: normal inspection of the chest Resp Effort & Inspection: normal respiratory effort Auscultation: clear to auscultation bilaterally Cardio Rate: regular rate Rhythm: regular rhythm GI Inspection: normal to inspection Palpation: soft Skin General skin exam: no rashes or lesions noted Neuro General: patient alert and patient awake Cranial Nerves: CN's II-XI intact bilaterally, PERRL, EOM intact bilaterally, facial strength normal, tongue midline, gag reflex normal, hearing normal and other (now following commands) Speech: expressive aphasia and receptive aphasia Motor: muscle tone normal throughout, strength 5/5 throughout, no pronator drift and no tremors Extrem General: normal to inspection, full ROM and no pedal edema Psych Mental Status: mental status grossly normal Speech and Movement: speech and movement normal Mood: congruent mood Affect: normal affect DS: Data Vitals/I&O Vitals and I&O: Vital Signs Temperature 36.8 C 06/25/21 08:21 Temperature Source Tympanic 06/25/21 08:21 Pulse 98 H 06/25/21 08:21 Pulse Rhythm Regular 06/25/21 08:20 Pulse 94 H 06/19/21 16:02 Respiratory Rate 22 06/25/21 08:21 Respiratory Effort Non-Labored 06/25/21 08:20 Respiratory Depth Normal 06/25/21 08:20 Respiratory Pattern Normal 06/25/21 08:20 Blood Pressure 148/91 H 06/25/21 08:21 Blood Pressure Mean 85 06/19/21 16:02 Blood Pressure Position Supine 06/18/21 22:44 Pulse Oximetry 98 06/25/21 08:21 Oxygen Delivery Method Room Air 06/25/21 08:21 Oxygen Flow Rate 0 06/25/21 08:21 Pain Level 0 06/25/21 08:21 Comment 06/24/21 00:00 Intake & Output 06/24/21 06/24/21 06/25/21 11:59 23:59 11:59 Intake Total 1720 / 2000 280 / 2000 180 / 180 Output Total 225 / 725 500 / 725 275 / 275 Balance 1495 / 1275 -220 / 1275 -95 / -95 Weight 55.5 kg 55.656 kg Intake: IV 1000 / 1000 Oral 720 / 1000 280 / 1000 180 / 180 Output: Urine 225 / 725 500 / 725 275 / 275 Other: Urine Color Yellow Yellow Yellow Urine Appearance Clear Clear Cloudy Urine Odor Strong Normal Comment Pt voided and also incontinent pT was incont and voided in toilet Stool Occult Blood Negative Stool Size Large Stool Characteristics Formed Hard Brown Black Voiding Methods Bedside Commode Toilet Bedside Commode Incontinent Incontinent Data Completed and Pending Labs on day of discharge: Labs from last 24 hours 06/24/21 06/24/21 06/24/21 14:12 14:12 14:12 Xanthochromia Absent Albumin Angiotensin Convert Enz CSF Tube Number 4 CSF Color Colorless CSF Clarity Clear CSF WBC 1 CSF RBC 1 CSF Neutrophils % 15 H CSF Lymphocytes % 70 CSF Monos/Macrophage % 15 CSF Diff Comment CSF Glucose 109 H CSF Total Protein 64 H CSF Albumin CSF IgG CSF IgG/Albumin CSF IgG Index CSF Paraneoplas Syn Int Pending CSF Anti-Neuronal Typ 1 Pending CSF Anti-Neuronal Typ 2 Pending CSF Anti-Neuronal Typ 3 Pending CSF AGNA-1 Pending Purkinje Cyto Ab Trace Pending CSF Purkinje Cyto Ab 1 Pending CSF Purkinje Cyto Ab 2 Pending CSF Amphiphysin Ab Pending CSF CRMP-5 IgG Ab Pending CSF Angiotensin Conv Enz CSF BRIELLE Virus DNA (PCR) Pending IgG IgG Synthesis Rate Paraneoplas Reflex Add Pending 06/24/21 06/24/21 06/20/21 14:12 14:12 16:00 Xanthochromia Albumin Pending Angiotensin Convert Enz 33 CSF Tube Number CSF Color CSF Clarity CSF WBC CSF RBC CSF Neutrophils % CSF Lymphocytes % CSF Monos/Macrophage % CSF Diff Comment CSF Glucose CSF Total Protein CSF Albumin Pending CSF IgG Pending Pending CSF IgG/Albumin Pending CSF IgG Index Pending CSF Paraneoplas Syn Int CSF Anti-Neuronal Typ 1 CSF Anti-Neuronal Typ 2 CSF Anti-Neuronal Typ 3 CSF AGNA-1 Purkinje Cyto Ab Trace CSF Purkinje Cyto Ab 1 CSF Purkinje Cyto Ab 2 CSF Amphiphysin Ab CSF CRMP-5 IgG Ab CSF Angiotensin Conv Enz Pending CSF BRIELLE Virus DNA (PCR) IgG Pending IgG Synthesis Rate Pending Paraneoplas Reflex Add 06/24/21 14:12 Cerebrospinal Fluid Body Fluid Culture - Pending Preliminary micro results at discharge 06/24/21 14:12 Body Fluid Culture - Pending Cerebrospinal Fluid PFSH All Active Problems (Updated 06/22/21 @ 09:01 by Geraldine Gaxiola NP) Discharge planning issues (Acute) Constipation (Acute) Aphasia (Acute) 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) Stroke (Chronic) Anemia (Chronic) Angular cheilitis (Acute) Difficulty sleeping (Acute) Chronic eczematoid otitis externa of both ears (Acute) Frequent UTI (Acute) External ear conductive hearing loss (Acute) Balance disorder (Acute) Pelvic floor dysfunction (Acute) Conductive hearing loss (Acute 04/27/13) Has b/l OTE HAs on unit Depressive disorder (Acute) Eczema (Acute 12/14/13) Gout (Acute) 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) wears b/l OTE HAs Urinary incontinence (Chronic 09/27/17) Seborrheic keratoses (Chronic 01/14/17) Osteopenia (Chronic) 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; 07/13 [place] [facility]PER NEEDLE [place]/02/16 Impaired renal function disorder (Chronic 01/01/14) Hyperlipidemia (Chronic) Hiatal hernia (Chronic) GERD (gastroesophageal reflux disease) (Chronic) EGD; globus two-three times at stretching of the esophagus PARAESOPHAGEAL (QUESTION GASTRIC VOLVULUS) Frequent UTI (Chronic 09/02/17) Essential hypertension (Chronic 03/17/13) Eczema (Chronic 09/21/13) Diabetes mellitus (Chronic 09/05/12) Vaginal atrophy (Chronic) 0 ESTROGEN DUE TO BREAST CANCER Asthma (Chronic) Arthritis (Chronic) left foot DJD Medical History Abnormal mammography 07/02/08 Mammogram 06/15/08-Rt breast Catergory 4. Steretactic biopsy performed 06/28/08. Recurrent;12/18/09-left breast U/S-benign; simple cyst Acute gastric ulcer with obstruction Acute gastric ulcer with obstruction Acute UTI Anemia Anemia Back pain Bilateral impacted cerumen (05/16/15) Chronic otitis externa (12/14/13) Depressive disorder Fatigue (01/14/16) Gout Hematoma rectus Hematoma History of esophageal dilatation History of esophageal dilatation Hypoxia s/p thoracentesis for left hydropneumothorax with resolution of hypoxia. 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 BARNES 06/2014; RIGHT; DR. BARNES Fracture, Open Treatment (~1992) naupama; fractured leg (tib/fib- left leg) H/O surgical procedure 05/10/03 TDT incontinence surgery. toenail removal-2000 History of open reduction and internal fixation (ORIF) procedure 05/10/92 anupama; fractured leg History of open reduction and internal fixation (ORIF) procedure History of repair of hiatal hernia History of repair of hiatal hernia History of thoracentesis left hydropneumothorax w/resolution of hypoxia History of thoracentesis Hysterectomy Hx of PCOS Praful Fundoplication 2010 laproscopic RADIATION [place]-[facility] REPAIR OF HH S/P breast biopsy 05/10/08 sterostactic biopsy of right breast; [facility]/P breast lumpectomy 05/10/90 DCIS S/P cataract extraction 07/26/14; Dr. Barnes; left S/P laparoscopic hysterectomy HX of PCOS Sinus infection (~1998) 5 veins blocked in the base of brain related to a serious sinus infection Status post breast lumpectomy Status post cataract extraction Status post laparoscopic hysterectomy Status post Praful fundoplication Status post Praful fundoplication TDT INCONTINECE SURGERY (~2003) Thoracentesis left hydropneumothorax with resolution of hypoxia TOENAIL REMOVAL (~2000) Family History Mother , age 63 Essential hypertension Depression Breast cancer Father , age 77 COPD (chronic obstructive pulmonary disease) Diabetes Brother Diabetes Essential hypertension Maternal Grandfather TB (tuberculosis) Lung disease Heart disease Paternal Grandfather , age 76 Essential hypertension Maternal Grandmother , age 48 Diabetes Essential hypertension Heart disease Paternal Grandmother , CHILD at age 38. Alcohol abuse Heart disease Hypertension MATERNAL FAMILY HX Depression Heart disease PATERNAL FAMILY HX Essential hypertension Social History Smoking/Tobacco Use Status: Never Smoking risk assessment performed?: Yes Alcohol Intake: current Alcohol Intake frequency: holidays/special occasions only Alcohol type: wine Drug use: Never Substance use type: does not use Caregiver/Support person: No Household members: none Housing: house Communication Needs: Hard of Hearing and Corrective Lenses Do you need help understanding health information?: Never Pets and animals: No Sexually active: No Do you think of yourself as: straight/heterosexual Current gender identity: female What is your relationship status?: How often do you talk on the phone with friends or family?: three or more times per week How often do you get together with friends or relatives?: three or more times per week How often do you attend denominational or caodaism services?: 4 or more times per year Do you belong to any clubs or organized social groups?: yes Panel score (0-1 are the most socially isolated patients): 3 What type of physical activity do you participate in: walking and other Details: PT 2x/week Duration: 15-30 minutes/day Frequency: 3-4 times per week Lizett/Spiritism: Roman Catholic Special lizett needs: No Seatbelt use: always Helmet use: No Drive intox or ride w/intox rear load truck driver: No Do you feel safe at home: Yes Do you feel safe in your relationship?: Yes
--- NOTE | 2021-06-25 10:24 | PDOC.HHF2F ---
Home Health Certification Home Health Certification: 1. Encounter Date and Reason I certify that Kelly Garcia was seen by Geraldine Gaxiola on 06/25/21 and that I had a [id number] encounter with this patient that meets the physician face to face encounter requirements. 2. Clinical Findings Supporting Skilled Need and Homebound Status I certify that home health services are medically necessary, include either intermittent [place] [facility] and/or physical/speech therapy, and that this patient is homebound in that absences from the home require considerable and taxing effort and are infrequent or of short duration, or are attributable to the need to receive medical care. [X] (a) Attached documentation from encounter provides clinical findings supporting skilled need and homebound status (including what assistance patient requires to leave the home). The encounter with the patient was in whole, or in part, for the following medical condition, which is the primary reason for home health care: Aphasia, UTI Chcf: routine nursing evaluation, medication oversight. Physical and Occupational Therapy: routine evaluation and treatment Speech Therapy: routine evaluation and treatment Homebound: patient is unable to safely leave the house unattended due to decreased strength and endurance. 3. Certification and Authentication I certify that I composed the above information based on my clinical judgement relating to this patient's medical condition and, if applicable, clinical findings communicated to me by the NPP or inpatient physician who performed the Home Health Referral. All further orders will be obtained through Dr Patricia Palacio (Community Based Physician - PCP)
--- NOTE | 2021-06-25 10:42 | CMDISCH_ITS ---
- If Service Date Differs Date of service: 06/25/21 Time of Service: 10:42 LACE Index Scoring Tool - Questions: Length of Stay (in days): 4 - 6 Acuity (Admit via E.D.?): Yes Comorbidities: Chronic Pulmonary Disease, Any Tumor, Metastatic Solid Tumor E.D. Visits: 1 - Answers: Total Score: 13 Risk of Readmission: High Risk Care Management Discharge Reason for Hospitalization: Aphasia Discharge Plan: Discharge home on oral ABX via private vehicle with family with New [facility] RN,PT,OT,TEMPERING MACHINE OPERATOR and speech. Resume activity and diet as tolerated. Follow up with PCP and discharge plan of care as prescribed. Patient/Family Education Needs: Review discharge instructions, limitations, medications and plan to follow up with PCP. ask me three. Services Needed at Discharge: Home Health Care Services ([facility] RN,PT,OT,TEMPERING MACHINE OPERATOR and speech. CM notified [facility].)
[2021-06-27 10:38] LABS: Albumin, CSF 34.3 mg/dL (<=25.1); Albumin, S 3.6 g/dL (3.4-4.9); IgG Index, CSF 0.57 Index (<=0.84); IgG, CSF 4.18 mg/dL (<=5.00); IgG, S 763 mg/dL (610-1,616); IgG/Albumin, CSF 0.12 Ratio (<=0.24); Synthesis Rate, CSF 2.06 mg/24hrs (<=8.00)
[2021-06-27 13:32] LABS: JC Virus DNA, QN <500 copies/mL; Source PLASMA
[2021-06-27 16:41] LABS: JC Virus PCR, CSF Negative (Negative)
[2021-06-27 18:07] LABS: AGNA-1 Negative titer (<1:240); ANNA-1 Negative titer (<1:240); ANNA-2 Negative titer (<1:240); ANNA-3 Negative titer (<1:240); PCA-1 Negative titer (<1:240); PCA-2 Negative titer (<1:240); PCA-Tr Negative titer (<1:240)
[2021-06-28 17:42] LABS: Angiotension Convertng Enz CSF 2.2 U/L (0.0-2.5)
[2021-07-01 10:07] LABS: AGNA-1, CSF Negative titer (<1:2); ANNA-1, CSF Negative titer (<1:2); ANNA-2, CSF Negative titer (<1:2); ANNA-3, CSF Negative titer (<1:2); Amphiphysin Ab, CSF Negative titer (<1:2); CRMP-5-IgG, CSF Negative titer (<1:2); PCA-1, CSF Negative titer (<1:2); PCA-2, CSF Negative titer (<1:2); PCA-Tr, CSF Negative titer (<1:2)
== END 2021-06-25 11:23 | disposition home health service (06) | DRG 92 ==
LOC: ER 06-19 00:43 → ICU 06-19 00:47 → MS 06-20 09:12
PROVIDERS: Family Medicine; Internal Medicine; Nurse Practitioner Acute Care; Psychiatry & Neurology Neurology; Registered Nurse Emergency; Admitting Provider Family Medicine; Emergency Provider Emergency Medicine; PCP Family Medicine; Visit Provider Family Medicine
DX: R47.01 Aphasia (principal); N39.0 Urinary tract infection, site not specified; D64.9 Anemia, unspecified; H90.3 Sensorineural hearing loss, bilateral; K59.00 Constipation, unspecified; K21.9 Gastro-esophageal reflux disease without esophagitis; E11.9 Type 2 diabetes mellitus without complications; M10.9 Gout, unspecified; Z87.440 Personal history of urinary (tract) infections; Z79.4 Long term (current) use of insulin; Z79.82 Long term (current) use of aspirin; F32.A Depression, unspecified; R32 Unspecified urinary incontinence; L30.9 Dermatitis, unspecified; E78.5 Hyperlipidemia, unspecified; Z85.3 Personal history of malignant neoplasm of breast; I10 Essential (primary) hypertension; K44.9 Diaphragmatic hernia without obstruction or gangrene; M85.80 Other specified disorders of bone density and structure, unspecified site; R94.01 Abnormal electroencephalogram [EEG]; E53.8 Deficiency of other specified B group vitamins; B96.20 Unspecified Escherichia coli [E. coli] as the cause of diseases classified elsewhere
CPT/HCPCS: 62270; 36415; 51701; 70496; 70544; 70547; 70552; 74177; 80048; 80053; 80061; 82164; 82945; 85652; 86255; 87077; 87635; 87799; 89050; 89051; 93005; 95714; 95719; 99223; 99232; 99285; 70450; 70551; 71260; 80320; 81003; 81015; 82040; 82042; 82607; 82728; 82746; 82784; 83036; 83519; 83520; 83540; 83550; 83735; 83916; 84157; 84443; 84484; 85025; 85610; 86038; 86140; 86256; 86431; 87070; 87086; 87186; 87205; 87798; 93010; 99220; 99233; 99239; G0378; J2060; J2405; J3420; J3490

== ENCOUNTER → 2021-06-19 07:54 | Outpatient (BNVA) | payer MEDICARE, SELFPAY | PROVIDERS: PCP Family Medicine; Referring Provider Family Medicine; Visit Provider Psychiatry & Neurology Neurology | DX: R69 Illness, unspecified (principal) ==

== ENCOUNTER 2021-07-08 06:12 | Emergency (ER) | payer MEDICARE, SELFPAY ==
[2021-07-08] VITALS (28 sets, daily range): BP systolic 149–181; BP diastolic 63–95; PULSE 79–99; RESP 13–25; TEMP 37.1; O2SAT 91–98
--- NOTE | 2021-07-08 06:25 | W.ED.GENAD ---
Discharge Plan Disposition Patient Disposition: HOME Condition: Improving Discharge Details Clinical Impression: Dizziness, Headache Primary Care Provider: Patricia Palacio ED Provider: Luis Antonio Rosenberg Home Meds and New Rx's Prescriptions: Continued triamcinolone acetonide 0.1 % cream 1 applic topical BID Qty: 80 0RF Rx Instructions: apply to foot ferrous fumarate 456 mg (150 mg iron) tablet 456 mg PO DAILY Qty: 90 4RF hydrochlorothiazide 25 mg tablet 25 mg PO DAILY Qty: 90 4RF levetiracetam 250 mg tablet 250 mg PO BID Qty: 60 4RF PreserVision AREDS-2 [id number] ot-dyzv-ut-mg capsule 1 tab PO DAILY 0RF cranberry 400 mg capsule 400 mg PO DAILY 0RF Rx Instructions: administer with a meal aspirin 81 MG tablet,delayed release (DR/EC) 1 tab PO DAILY 0RF Probiotic 10 billion cell capsule 1 cell PO DAILY PRN0RF glipizide 10 mg tablet extended release 24hr 10 mg PO DAILY Qty: 90 4RF metformin 1,000 mg tablet 1,000 mg PO BID Qty: 180 12RF Rx Instructions: While inpt 06/19/21: renally adjusted dose to 500mg BID given reduced GFR [Continuation of existing therapy: May continue at a reduced dose up to a maximum of 500 mg twice daily with close monitoring of kidney function (ADA [Lipska 2011]; Inmadeline 2014).] mirtazapine 7.5 mg tablet 7.5 mg PO QHS Qty: 90 4RF omeprazole 20 mg capsule,delayed release(DR/EC) 20 mg PO DAILY Qty: 90 12RF tolterodine 4 mg capsule,extended release 24hr 4 mg PO DAILY Qty: 30 0RF Rx Instructions: while inpt 06/19/21: renally adjusted dose to 2mg daily [CrCl 10 to 30 mL/minute: 2 mg once daily] venlafaxine 75 mg capsule,extended release 24hr 75 mg PO QPM Qty: 90 7RF (DME) Blood Glucose Test Strip 1 ea Miscellaneous DAILY Qty: 100 4RF Rx Instructions: FOR One Touch Delica METER. once daily testing. E11.9 (DME) lancets [OneTouch Delica Plus Lancet] 33 gauge misc See Rx Instructions .ROUTE .COMPLEX Qty: 100 5RF Dose Instruction: TEST ONCE DAILY Rx Instructions: TEST ONCE DAILY trazodone 100 mg Tablet 100 mg PO HS 0RF montelukast 10 mg tablet 10 mg PO QHS 0RF cyanocobalamin (vitamin B-12) [Vitamin B-12] 500 mcg Tablet 1,000 mcg PO DAILY Qty: 60 0RF Discharge Instructions Instructions: Dizziness (ED), General Headache (ED) Additional Instructions: Please return to the emergency department for any worsening neurologic symptoms such as dizziness unsteady gait nausea vomiting change in speech weakness or other abnormal symptoms. Continue with your medications as instructed, follow-up with neurology as scheduled. Medical Decision Making <Enrique Gallo MD - Last Filed: 07/08/21 07:45> 81 year-old woman with HTN, HLD, DM2, anemia, gout, GERD, asthma, remote CVT, who comes in with ems with feeling dizzy. She states she was unable to sleep well last night and felt unsteady with walking and felt like the room was spinning. She last felt normal last evening per patient. Around 5am she had a dull ache in the posterior head that has resolved. She denies falls, fevers, chills, chest pain. She feels weak globally and denies unilateral weakness or vision changes. She feels as though her speech is slurred though on my exam her speech seems clear and her NIH on my exam is 0. She denies chest pain or dyspnea. She has had to urinate 5 times throughout the night which she says is not usual for her. She was admitted in June for aphasia and had an extensive workup including MRI, CT venogram and LP all of which did not explain her symptoms and per chart review seems the most likely diagnosis at that time was seizure disorder and may have been post ictal. She is currently stable, unclear etiology for her dull headache that resolved and sensation of dizziness. HEadache is not severe nor the worst of her life and not thunderclap in etiology so doubt subarachnoid and no fevers, chills or meningismus on exam so doubt coater carbon paper infection. NIH of 0 so doubt cva and last known normal was well over 4.5 hours ago so not a lytic candidate. Will obtain labs to evaluate for uti, anemia. Her CT last month per radiology wasn't ideal timing to fully evaluate for cvt so will obtain ct venogram along with noncontrast ct head to further evaluate. Pt signed out to oncoming provider pending imaging and lab results Differential Diagnosis Differential Diagnosis: anemia, uti, tia Medical Records Medical records reviewed: Yes I reviewed the patient's medical records. Lab Data Lab results reviewed: Yes I reviewed the patient's lab results. ECG Data Attestation: I personally reviewed and interpreted this ECG (s) as follows: Prior ECG tracings: available for review Interpretation: sinus rhythm, rate of 80, no acute st t wave ischemic findings <Luis Antonio Rosenberg MD - Last Filed: 07/08/21 10:01> 81 year-old woman with HTN, HLD, DM2, anemia, gout, GERD, asthma, remote CVT, who comes in with ems with feeling dizzy. She states she was unable to sleep well last night and felt unsteady with walking and felt like the room was spinning. She last felt normal last evening per patient. Around 5am she had a dull ache in the posterior head that has resolved. She denies falls, fevers, chills, chest pain. She feels weak globally and denies unilateral weakness or vision changes. She feels as though her speech is slurred though on my exam her speech seems clear and her NIH on my exam is 0. She denies chest pain or dyspnea. She has had to urinate 5 times throughout the night which she says is not usual for her. She was admitted in June for aphasia and had an extensive workup including MRI, CT venogram and LP all of which did not explain her symptoms and per chart review seems the most likely diagnosis at that time was seizure disorder and may have been post ictal. She is currently stable, unclear etiology for her dull headache that resolved and sensation of dizziness. HEadache is not severe nor the worst of her life and not thunderclap in etiology so doubt subarachnoid and no fevers, chills or meningismus on exam so doubt coater carbon paper infection. NIH of 0 so doubt cva and last known normal was well over 4.5 hours ago so not a lytic candidate. Will obtain labs to evaluate for uti, anemia. Her CT last month per radiology wasn't ideal timing to fully evaluate for cvt so will obtain ct venogram along with noncontrast ct head to further evaluate. Pt signed out to oncoming provider pending imaging and lab results 9: 5 8 resting comfortably no acute distress, feeling much better after rest and fluids, labs and imaging unremarkable. Patient ambulatory without assistance no ataxia, neurologic exam intact. Patient has follow-up with neurology. Of note she has been started on Keppra and they are currently adjusting her dosage as the higher level dose has been making her sleepy and the lower dose has given her some insomnia. Consider component of dehydration as well given symptomatic improvement after fluid bolus. Patient feels comfortable going home and following up with neurology as scheduled. Given strict return precautions HPI <Enrique Gallo MD - Last Filed: 07/08/21 07:45> General Mode of arrival: EMS. Date/Time Provider Initiated Documentation: 07/08/21 06:24. Limitations to Documentation: no limitations. Information obtained by: patient. History of Present Illness 81 year old F presents to the emergency department with the chief complaint of dizzy, described as moderate, Patient reports no radiation. Patient started experiencing this day(s) (1) and it has been intermittent. improves with No relieving factors improve symptom(s), No exacerbating factors reported . Patient notes other (frequenty urination). Patient did receive the following treatments prior to arrival, none Related Data Home Medications Medication Instructions Recorded Confirmed aspirin 81 mg tablet,delayed 1 tab PO DAILY tab-cap 08/02/12 07/03/21 release Lactobacillus acidophilus 10 1 cell PO DAILY PRN cap 12/22/18 07/03/21 billion cell capsule (Probiotic) vit C 250 mg-vit E 90 mg-zinc 40 1 tab PO DAILY cap 12/22/18 07/03/21 mg-copper 1 bc-tulbsw-ldedgh capsule (PreserVision AREDS-2) cranberry 400 mg capsule 400 mg PO DAILY 06/10/20 07/03/21 triamcinolone acetonide 0.1 % 1 applic TOPICAL BID #80 g 01/14/21 07/03/21 topical cream glipizide 10 mg tablet, extended 10 mg PO DAILY #90 tab 05/20/21 07/03/21 release 24 hr metformin 1,000 mg tablet 1,000 mg PO BID #180 tab-cap 05/20/21 07/03/21 mirtazapine 7.5 mg tablet 7.5 mg PO QHS #90 tab 05/20/21 07/03/21 omeprazole 20 mg capsule,delayed 20 mg PO DAILY #90 tab-cap 05/20/21 07/03/21 release tolterodine 4 mg capsule,extended 4 mg PO DAILY #30 cap 05/20/21 07/03/21 release 24 hr venlafaxine 75 mg capsule,extended 75 mg PO QPM #90 cap 05/20/21 07/03/21 release 24 hr ferrous fumarate 456 mg (150 mg 456 mg PO DAILY #90 tab 06/02/21 07/03/21 iron) tablet montelukast 10 mg tablet 10 mg PO QHS 06/19/21 07/03/21 trazodone 100 mg tablet 100 mg PO HS 06/19/21 07/03/21 cyanocobalamin (vitamin B-12) 500 1,000 mcg PO DAILY #60 tab 06/25/21 07/03/21 mcg tablet (Vitamin B-12) hydrochlorothiazide 25 mg tablet 25 mg PO DAILY #90 tab-cap 07/03/21 07/03/21 levetiracetam 250 mg tablet 250 mg PO BID #60 tab 07/03/21 07/03/21 blood sugar diagnostic (Blood #100 strip 07/08/21 Glucose Test) lancets 33 gauge (OneTouch Delica #100 ea 07/08/21 Plus Lancet) Previous Rx's Medication Instructions Recorded triamcinolone acetonide 0.1 % 1 applic TOPICAL BID #80 g 01/14/21 topical cream glipizide 10 mg tablet, extended 10 mg PO DAILY #90 tab 05/20/21 release 24 hr metformin 1,000 mg tablet 1,000 mg PO BID #180 tab-cap 05/20/21 mirtazapine 7.5 mg tablet 7.5 mg PO QHS #90 tab 05/20/21 omeprazole 20 mg capsule,delayed 20 mg PO DAILY #90 tab-cap 05/20/21 release tolterodine 4 mg capsule,extended 4 mg PO DAILY #30 cap 05/20/21 release 24 hr venlafaxine 75 mg capsule,extended 75 mg PO QPM #90 cap 05/20/21 release 24 hr ferrous fumarate 456 mg (150 mg 456 mg PO DAILY #90 tab 06/02/21 iron) tablet cyanocobalamin (vitamin B-12) 500 1,000 mcg PO DAILY #60 tab 06/25/21 mcg tablet (Vitamin B-12) hydrochlorothiazide 25 mg tablet 25 mg PO DAILY #90 tab-cap 07/03/21 levetiracetam 250 mg tablet 250 mg PO BID #60 tab 07/03/21 blood sugar diagnostic (Blood #100 strip 07/08/21 Glucose Test) lancets 33 gauge (Nando Delica #100 ea 07/08/21 Plus Lancet) Allergies Allergy/AdvReac Type Severity Reaction Status Date / Time Sulfa (Sulfonamide Allergy Intermediate Rash Verified 07/03/21 11:38 Antibiotics) adhesive AdvReac causes Verified 07/03/21 11:38 skin tears amoxicillin AdvReac Vomiting Verified 07/03/21 11:38 General Stated Complaint: Dizzy/Sync JON: 3 <Luis Antonio Rosenberg MD - Last Filed: 07/08/21 10:01> HPI Narrative: 81 year-old woman with HTN, HLD, DM2, anemia, gout, GERD, asthma, remote CVT, who comes in with ems with feeling dizzy. She states she was unable to sleep well last night and felt unsteady with walking and felt like the room was spinning. She last felt normal last evening per patient. Around 5am she had a dull ache in the posterior head that has resolved. She denies falls, fevers, chills, chest pain. She feels weak globally and denies unilateral weakness or vision changes. She feels as though her speech is slurred though on my exam her speech seems clear and her NIH on my exam is 0. She denies chest pain or dyspnea. She has had to urinate 5 times throughout the night which she says is not usual for her. She was admitted in June for aphasia and had an extensive workup including MRI, CT venogram and LP all of which did not explain her symptoms and per chart review seems the most likely diagnosis at that time was seizure disorder and may have been post ictal Review of Systems <Enrique Gallo MD - Last Filed: 07/08/21 07:45> All systems reviewed & are unremarkable except as noted in HPI and below Constitutional Constitutional: Denies chills, Denies fever(s) and Denies weakness Eyes Eyes: Denies loss of vision Cardiovascular Cardiovascular: Denies chest pain and Denies dyspnea Respiratory Respiratory: Denies cough and Denies dyspnea Gastrointestinal Gastrointestinal: Denies abdominal pain, Denies nausea and Denies vomiting Integumentary/Breasts Skin/Breast: Denies rash Neurologic Neurologic: Denies loss of vision and Denies weakness Psychiatric Psychiatric: Denies depression Endocrine Endocrine: Denies heat intolerance <Luis Antonio Rosenberg MD - Last Filed: 07/08/21 10:01> Narrative: Review of Systems Constitutional: negative Eyes: negative ENT: negative Cardiovascular: negative Respiratory: negative Gastrointestinal: negative : negative Musculoskeletal: negative Skin: negative Neurologic: Unsteady gait Psych: negative PFSH <Enrique Gallo MD - Last Filed: 07/08/21 07:45> All Active Problems (Updated 07/08/21 @ 06:54 by Enrique Gallo MD) Dizziness (Acute) Headache (Acute) Slurred speech (Acute) Aphasia (Acute) Frequent UTI (Acute) Dysphagia (Acute) Angular cheilitis (Acute) Difficulty sleeping (Acute) Chronic eczematoid otitis externa of both ears (Acute) Frequent UTI (Acute) External ear conductive hearing loss (Acute) Balance disorder (Acute) Pelvic floor dysfunction (Acute) Conductive hearing loss (Acute 04/27/13) Has b/l OTE HAs on unit Depressive disorder (Acute) Eczema (Acute 12/14/13) Gout (Acute) Urinary incontinence (Chronic 09/27/17) Seborrheic keratoses (Chronic 01/14/17) Osteopenia (Chronic) 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 Steretactic biopsy performed 06/28/08. Recurrent;12/18/09-left breast U/S-benign; simple cyst Acute gastric ulcer with obstruction Acute gastric ulcer with obstruction Acute UTI Anemia Anemia Back pain Bilateral impacted cerumen (05/16/15) Chronic otitis externa (12/14/13) Depressive disorder Fatigue (01/14/16) Gout Hematoma rectus Hematoma History of esophageal dilatation History of esophageal dilatation Hypoxia s/p thoracentesis for left hydropneumothorax with resolution of hypoxia. 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 POWERS 06/2014; RIGHT; DR. POWERS Fracture, Open Treatment (~1992) anupama; fractured leg (tib/fib- left leg) H/O surgical procedure 05/10/03 TDT incontinence surgery. toenail removal-2000 History of open reduction and internal fixation (ORIF) procedure 05/10/92 anupama; fractured leg History of open reduction and internal fixation (ORIF) procedure History of repair of hiatal hernia History of repair of hiatal hernia History of thoracentesis left hydropneumothorax w/resolution of hypoxia History of thoracentesis Hysterectomy Hx of PCOS Praful Fundoplication 2010 laproscopic RADIATION 2017-[facility] – [place] 1992-[facility] REPAIR OF HH S/P breast biopsy 05/10/08 sterostactic biopsy of right breast; [facility] [place] S/P breast lumpectomy 05/10/90 DCIS S/P cataract extraction 07/26/14; Dr. Powers; left S/P laparoscopic hysterectomy HX of PCOS Sinus infection (~1998) 5 veins blocked in the base of brain related to a serious sinus infection Status post breast lumpectomy Status post cataract extraction Status post laparoscopic hysterectomy Status post Praful fundoplication Status post Praful fundoplication TDT INCONTINECE SURGERY (~2003) Thoracentesis left hydropneumothorax with resolution of hypoxia TOENAIL REMOVAL (~2000) Family History Mother , age 63 Essential hypertension Depression Breast cancer Father , age 77 COPD (chronic obstructive pulmonary disease) Diabetes Brother Diabetes Essential hypertension Maternal Grandfather TB (tuberculosis) Lung disease Heart disease Paternal Grandfather , age 76 Essential hypertension Maternal Grandmother , age 48 Diabetes Essential hypertension Heart disease Paternal Grandmother , CHILD at age 38. Alcohol abuse Heart disease Hypertension MATERNAL FAMILY HX Depression Heart disease PATERNAL FAMILY HX Essential hypertension Social History Smoking/Tobacco Use Status: Never Smoking risk assessment performed?: Yes Alcohol Intake: current Alcohol Intake frequency: holidays/special occasions only Alcohol type: wine Drug use: Never Substance use type: does not use Caregiver/Support person: No Household members: none Housing: house Communication Needs: Hard of Hearing and Corrective Lenses Do you need help understanding health information?: Never Pets and animals: No Sexually active: No Do you think of yourself as: straight/heterosexual Current gender identity: female What is your relationship status?: How often do you talk on the phone with friends or family?: three or more times per week How often do you get together with friends or relatives?: three or more times per week How often do you attend zoroastrianism or tenriism services?: 4 or more times per year Do you belong to any clubs or organized social groups?: yes Panel score (0-1 are the most socially isolated patients): 3 What type of physical activity do you participate in: walking and other Details: PT 2x/week Duration: 15-30 minutes/day Frequency: 3-4 times per week Lizett/Baptism: Rastafarian Special lizett needs: No Seatbelt use: always Helmet use: No Drive intox or ride w/intox line driver: No Do you feel safe at home: Yes Do you feel safe in your relationship?: Yes Exam <Enrique Gallo MD - Last Filed: 07/08/21 07:45> Const General: no acute distress Orientation: alert [facility] Head: normal to inspection Ears: external ears normal General nose exam: external nose normal Mouth: moist mucous membranes Eyes General: appearance normal, both eyes and all related structures Neck Neck: normal visual inspection Resp Effort & Inspection: normal respiratory effort and able to speak in complete sentences Cardio Rate: regular rate GI Palpation: soft Skin General skin exam: no rashes or lesions noted Neuro General: patient alert and patient oriented x3 Extrem General: normal to inspection Psych Mental Status: mental status grossly normal <Luis Antonio Rosenberg MD - Last Filed: 07/08/21 10:01> Narrative Exam Narrative: Physical Examination General: alert, awake, cooperative, resting comfortably, no acute distress HEENT: normocephalic, atraumatic; PERRL, EOM intact, conjunctiva normal; no nasal discharge; moist mucous membranes, oral and pharyngeal mucosa normal, tolerating secretions Neck: supple, trachea midline; full ROM Chest: normal to inspection Respiratory: normal respiratory effort, speaking in full sentences, clear to auscultation, no wheezing, rales or rhonchi Cardiac: regular rate, regular rhythm, S1S2 intact, no murmurs rubs or gallops GI: abdomen soft, non-tender, non-distended; no palpable mass or hepatosplenomegaly Skin: no lesions, rashes or trauma appreciated Neuro: AAOx3, normal speech, moving all extremities; 5-5 strength upper and lower extremities, sensation intact, ambulatory without assistance no ataxia, cranial nerves II through XII intact Extremities: No peripheral edema Psych: Appropriate mood and affect Course <Enrique aGllo MD - Last Filed: 07/08/21 07:45> Vital Signs Vital signs: Vital Signs Temperature 37.1 C 07/08/21 06:21 Pulse 79 07/08/21 06:21 Respiratory Rate 15 07/08/21 06:21 Blood Pressure 157/74 H 07/08/21 06:21 Pulse Oximetry 96 07/08/21 06:21 Temperature 37.1 C 07/08/21 06:21 Temperature Source Oral 07/08/21 06:21 Pulse 79 07/08/21 06:21 Respiratory Rate 15 07/08/21 06:21 Blood Pressure 157/74 H 07/08/21 06:21 Blood Pressure Position Sitting 07/08/21 06:21 Pulse Oximetry 96 07/08/21 06:21 Oxygen Delivery Method Room Air 07/08/21 06:21 Oxygen Flow Rate 0 07/08/21 06:21 Pain Level 2 07/08/21 06:21 Sign Out <Enrique Gallo MD - Last Filed: 07/08/21 07:45> Sign Out Data: Sign Out Comment: Here for dull posterior headache and also feeling unsteady, admitted in June for aphasia with multiple studies done including MRI and LP which didn't reveal clear cause. HAs history of cerebral venous thrombosis and CT venogram last month not timed well per radiology so repeating this along with labs. Has had some frequent urination as well. Will need reevaluation if workup again is negative. Last updated by Enrique Gallo MD at 07/08/21 07:02
--- NOTE | 2021-07-08 06:30 | RT.EKG_ITS ---
APPROVED REPORT Exam: Resting ECG Reason for Exam: dizziness Patient Location: E HR:81 bpm ECG Measurements Heart Rate 81 AXIS NH 178 P 55 QRSd 60 QRS -11 QT 368 T 60 QTc 427 Conclusion Sinus rhythm...normal P axis, V-rate 60- 99 Low voltage, precordial leads...precordial leads <1.0mV
[2021-07-08 07:21] LABS: Bilirubin Negative (Negative); Blood Negative (Negative); Clarity Clear (Clear); Glucose Negative (Negative); Ketones Negative (Negative); Leukocyte Esterase Negative (Negative); Nitrite Negative (Negative); Specific Gravity 1.025 (1.005-1.025); Urobilinogen 0.2 EU/dL (Up TO 0.2); pH 6.5 (5-8)
[2021-07-08 07:34] LABS: Abs Immature Grans 0.03 10^3/uL (0.0-0.06); Absolute Basophil Count 0.04 10^3/uL (0.0-0.2); Absolute Eosinophil Count 0.28 10^3/uL (0.0-0.7); Absolute Lymphocyte Count 2.75 10^3/uL (1.2-3.4); Absolute Monocyte Count 0.62 10^3/uL (0.1-0.8); Absolute Neutrophil Count 3.85 10^3/uL (1.2-6.7); Basophils % 0.5; Eosinophils % 3.7; HCT 38.4 % (36.0-46.0); HGB 11.7 g/dL (11.2-15.7); Immature Grans % 0.4; Lymphocytes % 36.3; MCH 24.9 pg (27.0-33.0); MCHC 30.5 % (32.0-36.0); MCV 81.7 fL (80-95); MPV 9.1 fL (8.0-11.0); Monocytes % 8.2; Neutrophils % 50.9; Nucleated RBC 0 %; Platelet Count 332 10^3/uL (130-400); RDW 17.9 % (11.7-14.6); RDW-SD 52.7 fL; WBC 7.57 10^3/uL (4.4-10.8)
[2021-07-08] MEDS: Normal Saline Flush 10 ML SYR IVP (07:34)
[2021-07-08] MEDS: Normal Saline 1,000 ML 1000 ML IV (07:34)
[2021-07-08 07:46] LABS: ALT 13 U/L (14-59); AST 16 U/L (15-37); Albumin 4.2 g/dL (3.4-5.0); Alkaline Phosphatase 105 U/L (46-116); Anion Gap 7.7 mmol/L (3-11); BUN 27 mg/dL (7-18); Bilirubin, Total 0.4 mg/dL (0.2-1.0); CO2 31.3 mmol/L (21.0-32.0); CREATININE 1.1 mg/dL (0.55-1.02); Chloride 103 mmol/L (98-107); Estimated GFR 47.91 (mL/min/1.73m2); Glucose 122 mg/dL (74-106); Potassium 4.1 mmol/L (3.5-5.1); Sodium 142 mmol/L (136-145); TSH (W/Ref FT4) 1.41 uIU/mL (0.36-3.74); Total Protein 7.9 g/dL (6.4-8.2); Troponin I < 50 ng/L (<or=60)
--- NOTE | 2021-07-08 08:09 | DI.CT_ITS ---
Exam(s) CT BRAIN CTA EXAM: CT BRAIN CTA CLINICAL HISTORY: headache, evaluate for Cerebral venous thrombosis. TECHNIQUE: Imaging Protocol: Axial CT angiography was performed with multi-slice acquisition and mu lti-planar and/or 3D reconstructions. CONTRAST MATERIAL: Intravenous: Omnipaque 350 Contrast volume:85 mL COMPARISON: CT CT BRAIN CTA from 06/23/2021 FINDINGS: CT Head W/O: Ventricles and Extra axial spaces: Normal in size and morphology for the patient's age. Hemorrhage: None. Cerebral parenchyma: No acute territorial infarct. There are areas of decreased attenuation in the w chasidy matter most consistent with small vessel ischemic disease. Midline shift: None. Brainstem/Cerebellum: Normal. Calvarium: Normal. Visualized Paranasal sinuses/Mastoids: Clear. Soft Tissues: Unremarkable. Enhancement: Unremarkable. CTA Brain W: Internal Carotid Arteries: Petrous: No aneurysm, occlusion or significant stenosis. Cavernous: Mild atherosclerosis. No aneurysm, occlusion or significant stenosis. Cerebral: No aneurysm, occlusion or significant stenosis. Anterior Cerebral Arteries: Right: No aneurysm, occlusion or significant stenosis. Left: No aneurysm, occlusion or significant stenosis. Middle Cerebral Arteries: Right: No aneurysm, occlusion or significant stenosis. Left: No aneurysm, occlusion or significant stenosis. Posterior cerebral Arteries: Right: No aneurysm, occlusion or significant stenosis. Left: No aneurysm, occlusion or significant stenosis. Vertebral Arteries: Right: No aneurysm, occlusion or significant stenosis. Left: No aneurysm, occlusion or significant stenosis. Basilar Artery: No aneurysm, occlusion or significant stenosis. There is no evidence of a cerebral venous thrombosis. IMPRESSION: 1. Normal CTA examination of the [place]. 2. No acute intracranial process. 3. No evidence of a cerebral venous thrombosis. 4. Results of this exam have been verbally communicated with provider. RADIATION DOSE DELIVERED: 2,759.34mGy.cm Total DLP DATA REPOSITORY: All CT scans at this facility are submitted to the National Radiology Data Registry (NRDR) Dose Index Registry (DIR) with the [employer] ([employer]). RADIATION OPTIMIZATION: All CT scans at this facility use at least one of these dose optimization te chniques: automated exposure control; mA and/or kV adjustment per patient size (includes targeted exa ms where dose is matched to clinical indication); or iterative reconstruction.
[2021-07-08] MEDS: Omnipaque 350 MG/ML 100 ML BTL 85 ML IJ (08:48)
== END 2021-07-08 10:20 | disposition home or self-care (01) ==
PROVIDERS: Emergency Medicine; Emergency Provider Emergency Medicine; PCP Family Medicine
DX: R42 Dizziness and giddiness (principal); R51.9 Headache, unspecified; I10 Essential (primary) hypertension
CPT/HCPCS: 36415; 70496; 80053; 93005; 96360; 99285; 81003; 83735; 84443; 84484; 85025; 93010; 99284; J3490

== ENCOUNTER → 2021-07-15 12:25 | Outpatient (BNVA) | payer MEDICARE, SELFPAY | PROVIDERS: PCP Family Medicine; Referring Provider Family Medicine; Visit Provider Psychiatry & Neurology Neurology | DX: R47.01 Aphasia (principal) | CPT/HCPCS: 99214 ==

== ENCOUNTER 2021-08-18 11:55 | Outpatient (REF) | payer MEDICARE, SELFPAY ==
[2021-08-18 14:00] LABS: Bilirubin Negative (Negative); Blood Trace-lysed (Negative); Clarity Cloudy (Clear); Glucose Negative (Negative); Ketones Trace mg/dL (Negative); Leukocyte Esterase Large (Negative); Nitrite Negative (Negative); Specific Gravity >= 1.030 (1.005-1.025); Urobilinogen 0.2 EU/dL (Up TO 0.2); pH 5.5 (5-8)
[2021-08-18 14:17] LABS: Bacteria Few HPF (Negative); C & S Indicated? Yes; Crystals Negative HPF (Negative); Epithelial Cells Rare HPF (Negative); Mucus Negative (Negative); RBC 0-2 HPF (0-2); WBC >50 HPF (0-5)
== END 2021-08-18 11:56 | disposition home or self-care (01) ==
LOC: LBN 11:55
PROVIDERS: PCP Family Medicine; Visit Provider Family Medicine
DX: R30.0 Dysuria (principal)
CPT/HCPCS: 81003; 81015; 87086

== ENCOUNTER 2021-08-20 02:47 | Outpatient (CLI) | payer MEDICARE, SELFPAY ==
[2021-08-20 11:41] LABS: HCT 41.5 % (36.0-46.0); HGB 12.6 g/dL (11.2-15.7); MCH 25.7 pg (27.0-33.0); MCHC 30.4 % (32.0-36.0); MCV 84.5 fL (80-95); MPV 9.1 fL (8.0-11.0); Platelet Count 246 10^3/uL (130-400); RBC 4.91 10^6/uL (3.93-5.22); RDW 18.1 % (11.7-14.6); RDW-SD 55.6 fL; WBC 7.51 10^3/uL (4.4-10.8)
[2021-08-20 12:40] LABS: Hemoglobin A1C 7.4 % (<5.7)
[2021-08-20 13:00] LABS: Iron 44 ug/dL (50-170)
[2021-08-20 13:27] LABS: Ferritin 12 ng/mL (8-252); Vitamin B12 1526 pg/mL (193-986)
== END 2021-08-20 02:48 | disposition home or self-care (01) ==
LOC: LBO 02:47
PROVIDERS: PCP Family Medicine; Visit Provider Family Medicine
DX: J45.909 Unspecified asthma, uncomplicated (principal); E11.9 Type 2 diabetes mellitus without complications; D64.9 Anemia, unspecified; G47.9 Sleep disorder, unspecified; K13.0 Diseases of lips
CPT/HCPCS: 36415; 85027; 82607; 82728; 83036; 83540

== ENCOUNTER 2021-09-05 01:12 | Outpatient (RCR) | payer MEDICARE, SELFPAY ==
[2021-08-29] MEDS: Normal Saline Flush 10 ML SYR IVP (10:24)
[2021-08-29] MEDS: SODIUM FER. GLUC./SUC. 125 MG in Normal Saline 100 ML 110 MG IVPB (10:31)
[2021-09-05] MEDS: Normal Saline Flush 10 ML SYR IVP (10:19)
[2021-09-05] MEDS: SODIUM FER. GLUC./SUC. 125 MG in Normal Saline 100 ML 110 MG IVPB (10:20)
== END 2021-09-06 23:59 | disposition home or self-care (01) ==
LOC: INF 01:12
PROVIDERS: PCP Family Medicine; Visit Provider Family Medicine
DX: D50.9 Iron deficiency anemia, unspecified (principal)
CPT/HCPCS: 96365; J2916

== ENCOUNTER → 2021-09-16 12:41 | Outpatient (BNVA) | payer MEDICARE, SELFPAY | PROVIDERS: PCP Family Medicine; Visit Provider Psychiatry & Neurology Neurology | DX: R47.01 Aphasia (principal) | CPT/HCPCS: 99214 ==

== ENCOUNTER 2021-09-19 01:18 | Outpatient (RCR) | payer MEDICARE, SELFPAY ==
[2021-09-11] MEDS: SODIUM FER. GLUC./SUC. 125 MG in Normal Saline 100 ML 110 MG IVPB (11:00)
[2021-09-11] MEDS: Normal Saline Flush 10 ML SYR IVP (11:00)
[2021-09-19] MEDS: Normal Saline Flush 10 ML SYR IVP (10:16)
[2021-09-19] MEDS: SODIUM FER. GLUC./SUC. 125 MG in Normal Saline 100 ML 110 MG IVPB (10:23)
== END 2021-10-07 23:59 | disposition home or self-care (01) ==
LOC: INF 01:18
PROVIDERS: PCP Family Medicine; Visit Provider Family Medicine
DX: D50.9 Iron deficiency anemia, unspecified (principal)
CPT/HCPCS: 96365; J2916

== ENCOUNTER 2021-10-01 04:25 | Outpatient (CLI) | payer MEDICARE, SELFPAY ==
[2021-10-01 10:54] LABS: HCT 39.5 % (36.0-46.0); HGB 12.3 g/dL (11.2-15.7); MCH 26.7 pg (27.0-33.0); MCHC 31.1 % (32.0-36.0); MCV 86 fL (80-95); Platelet Count 314 10^3/uL (130-400); RDW 16.4 % (11.7-14.6); RDW-SD 51.3 fL
[2021-10-01 11:32] LABS: Iron 88 ug/dL (50-170)
[2021-10-01 11:45] LABS: Ferritin 305 ng/mL (8-252)
== END 2021-10-01 04:26 | disposition home or self-care (01) ==
LOC: LBO 04:25
PROVIDERS: PCP Family Medicine; Visit Provider Family Medicine
DX: D50.9 Iron deficiency anemia, unspecified (principal)
CPT/HCPCS: 36415; 85027; 82728; 83540

== ENCOUNTER 2021-11-26 01:23 | Outpatient (CLI) | payer MEDICARE, SELFPAY ==
[2021-11-26 13:40] LABS: Abs Immature Grans 0.02 10^3/uL (0.0-0.06); Absolute Basophil Count 0.04 10^3/uL (0.0-0.2); Absolute Eosinophil Count 0.33 10^3/uL (0.0-0.7); Absolute Lymphocyte Count 2.21 10^3/uL (1.2-3.4); Absolute Monocyte Count 0.46 10^3/uL (0.1-0.8); Absolute Neutrophil Count 3.01 10^3/uL (1.2-6.7); Basophils % 0.7; Eosinophils % 5.4; HCT 38.4 % (36.0-46.0); HGB 12.2 g/dL (11.2-15.7); Immature Grans % 0.3; Lymphocytes % 36.4; MCHC 31.8 % (32.0-36.0); MCV 88 fL (80-95); MPV 9.4 fL (8.0-11.0); Monocytes % 7.6; Neutrophils % 49.6; Platelet Count 225 10^3/uL (130-400); RBC 4.36 10^6/uL (3.93-5.22); RDW 14.3 % (11.7-14.6); RDW-SD 46.4 fL; WBC 6.07 10^3/uL (4.4-10.8)
[2021-11-26 13:53] LABS: Hemoglobin A1C 7.4 % (<5.7)
[2021-11-26 14:21] LABS: ALT 28 U/L (14-59); AST 25 U/L (15-37); Albumin 3.5 g/dL (3.4-5.0); Alkaline Phosphatase 86 U/L (46-116); BUN 27 mg/dL (7-18); Bilirubin, Total 0.4 mg/dL (0.2-1.0); CREATININE 1.2 mg/dL (0.55-1.02); Calcium 9.2 mg/dL (8.5-10.1); Chloride 104 mmol/L (98-107); Estimated GFR 43.34 (mL/min/1.73m2); Glucose 266 mg/dL (74-106); Potassium 4.3 mmol/L (3.5-5.1); Sodium 139 mmol/L (136-145); Total Protein 6.6 g/dL (6.4-8.2)
== END 2021-11-26 01:24 | disposition home or self-care (01) ==
LOC: LBO 01:23
PROVIDERS: Nurse Practitioner Family; PCP Family Medicine; Visit Provider Family Medicine
DX: C50.912 Malignant neoplasm of unspecified site of left female breast; Z17.0 Estrogen receptor positive status [ER+]
CPT/HCPCS: 36415; 80053; 83036; 85025

== ENCOUNTER 2022-01-23 12:31 | Outpatient (CLI) | payer MEDICARE, SELFPAY ==
[2022-01-23 12:20] LABS: HCT 39.1 % (36.0-46.0); HGB 12.5 g/dL (11.2-15.7); MCH 28.5 pg (27.0-33.0); MCV 89 fL (80-95); MPV 8.9 fL (8.0-11.0); Platelet Count 334 10^3/uL (130-400); RBC 4.38 10^6/uL (3.93-5.22); RDW 12.7 % (11.7-14.6); RDW-SD 41.6 fL; WBC 8.33 10^3/uL (4.4-10.8)
[2022-01-23 13:13] LABS: Ferritin 124 ng/mL (8-252)
[2022-01-23 13:17] LABS: Iron 77 ug/dL (50-170)
== END 2022-01-23 12:32 | disposition home or self-care (01) ==
LOC: LBO 12:35
PROVIDERS: PCP Family Medicine; Visit Provider Family Medicine
DX: D50.9 Iron deficiency anemia, unspecified (principal)
CPT/HCPCS: 36415; 85027; 82728; 83540